=== PATIENT | female | born 1955 | race Caucasian/White ===

== ENCOUNTER 2024-07-18 11:54 | Emergency (ER) | payer MEDICARE, OTHER, SELFPAY ==
[2024-07-18 12:00] VITALS: BP 157/96
--- NOTE | 2024-07-18 13:49 | ED.GENMED ---
History of Present Illness
General
Chief Complaint: Fall
Source: patient
Time Seen by Provider: 07/18/24 12:39
History of Present Illness
History of Present Illness:
This is 69-year-old female who presents with complaints of pain around the right knee as well as up toward the right thigh. She admits that she had a fall 2 days ago but also admits that the pain in the leg has been ongoing prior to that fall. No
fevers. She states that she is able to bear weight but it is just a little bit painful to bear weight. She denies any pain in her back. No head injury.
Past History
Past History
ED Past Medical History: Hypercholesterolemia, NIDDM, Psychiatric and Other (CKD)
ED Past Surgical History: None
Social History
Tobacco: Non-smoker
Alcohol: None
Drug: None
Personal:
Living: with family
Employment: Disabled
Family History
Family History: Other (nc)
Phy Exam
Physical Exam
Physical Exam:
CONSTITUTIONAL Vital signs reviewed, Patient alert and oriented to person, place and time. Well-appearing
HEAD atraumatic, normocephalic.
EYES eyelids normal to inspection, Extraocular muscles intact, Conjunctiva normal, Sclera normal.
NECK normal range of motion, Trachea midline, no jugular venous distention.
RESP no respiratory distress
BACK No obvious deformities
UPPER EXTREMITY Gross Range of motion normal, gross motor strength normal
LOWER EXTREMITY Gross range of motion normal, Gross motor strength normal. Noted small right knee effusion. No warmth. No redness. Normal flexion and extension of the knee. Normal flexion and internal and external rotation of the hip without
difficulty. Normal distal pulses.
NEURO Speech normal, No focal motor deficits include, Navdeep coma scale 15, Memory normal, Cranial Nerves intact to screening exam.
SKIN Skin warm, dry, and normal in color.
PSYCHIATRIC Patient oriented to person place and time, Normal affect.
Course
Orders/Labs/Results
Orders:
Orders
07/18/24 12:43
Hip, Right 2-3 Views [CR Hip - RT w/wo Pel 2-3 Vw*] Urgent
Comment:
Reason For Exam: pain, recent fall
Include a pelvis x-ray?: Yes
Knee, Right 4 or More Views [CR Knee- Right 4 Or More View*] Urgent
Comment:
Reason For Exam: pain, recent fall
07/18/24 13:27
Acetaminophen [Tylenol] 1,000 mg PO NOW STA
Vital Signs
Initial and Last Documented VS:
Initial Vital Signs
Temp Pulse Resp BP Pulse Ox
97.9 F 89 18 157/96 95
07/18/24 12:00 07/18/24 12:00 07/18/24 12:00 07/18/24 12:00 07/18/24 12:00
Last Documented Vital Signs
Temp Pulse Resp BP Pulse Ox
97.9 F 89 18 157/96 95
07/18/24 12:00 07/18/24 12:00 07/18/24 12:00 07/18/24 12:00 07/18/24 12:00
MDM/Problems Addressed
MDM/Problems Addressed:
Fall, knee injury, knee effusion
Acute Exacerbation and/or Progression of Chronic Illness: HTN
*Radiology
Radiology exam reviewed: preliminary read by ED provider (No noted fractures)
*Pulse Oximetry
Patient hypoxic: no
*Critical Care Note
Total Time (30-74mins, 75-104mins- exclusive of procedures): Not Applicable
Data Reviewed
Source: patient
Further Testing Considered But Not Given:
Considered arthrocentesis but no clinical concern for septic arthritis. Okay for discharge and outpatient orthopedic follow-up
ED Attending Note
-
Portions of this chart may have been created with voice recognition software.� Occasional wrong word or��sound alike� substitutions may have occurred due to the inherent limitations of voice recognition software.
Discharge Plan
Departure
Patient Disposition: Home (Routine Discharge)
Date of Disposition: 07/18/24
Time of Disposition: 13:52
Patient with high blood pressure during this ER visit?: Yes
Discharge Problem:
Fall, Effusion of knee
Instructions: Swollen Joints
Prescriptions:
No Action
lorazepam 1 MG tablet
1 mg PO BID
lithium carbonate 300 MG tablet extended release
900 mg PO HS Qty: 90 0RF
cephalexin [Keflex] 750 MG capsule
750 mg PO BID Qty: 14 0RF
brexpiprazole [Rexulti] 2 MG tablet
2 mg PO QPM Qty: 30 0RF
Referrals:
Malvin Frost MD [Active] -
Diana Andrea MD [Family Provider] -
Activity Restrictions/Additional Instructions:
Please ice your knee and rest. Please see orthopedics next 2-week symptoms persist. Return immediately for fevers, worsening symptoms or any other concerns.
Interventions
Interventions:
*Risk Screen - Suicide Last Done: 07/18/24 11:57
*General Assessment Last Done: 07/18/24 11:59
*Neglect/Abuse Screening Last Done: 07/18/24 11:59
ED-Musculoskeletal Assessment Last Done: 07/18/24 13:37
ED- Neurological Assessment Last Done: 07/18/24 13:37
ED-Skin Assessment Last Done: 07/18/24 13:37
Discharge Date and Time
Print Language: LITHUANIAN
[2024-07-18] MEDS: TYLENOL 1000 MG PO (14:07)
[2024-07-18 14:30] VITALS: BP 145/86
[2024-07-18 22:37] VITALS: BP 142/84
[2024-07-18 22:42] VITALS: BP 142/84
== END 2024-07-18 22:47 | disposition home or self-care (01) ==
LOC: EMR 11:54
PROVIDERS: EMERGENCY PHYSICIAN Emergency Medicine; FAMILY PHYSICIAN Student in an Organized Health Care Education/Training Program
DX: M25.461 Effusion, right knee (principal); M79.651 Pain in right thigh; S89.91XA Unspecified injury of right lower leg, initial encounter; W19.XXXA Unspecified fall, initial encounter; R03.0 Elevated blood-pressure reading, without diagnosis of hypertension; E11.22 Type 2 diabetes mellitus with diabetic chronic kidney disease; N18.9 Chronic kidney disease, unspecified; E78.00 Pure hypercholesterolemia, unspecified; Z88.5 Allergy status to narcotic agent; Z91.040 Latex allergy status
CPT/HCPCS: 99284; 73502; 73564

== ENCOUNTER 2024-11-25 01:44 | Inpatient (IN) | payer OTHER, SELFPAY ==
--- NOTE | 2024-11-24 16:42 | ED.GENMED ---
ED Provider Triage
<Hermilo Keenan PA-C - Last Filed: 11/24/24 16:43>
-
Patient seen by provider in Triage?: Seen in Triage
Attestation: A medical screening examination has been initiated by a qualified medical provider. Based on the assessment performed at this time, it has been determined that an emergent medical condition may exist and the patient has been informed
that further medical evaluation and possible additional diagnostic testing may be needed.
HPI: 69-year-old female presenting to the ER via EMS from her living facility for evaluation of cough x 1 week, constipation x 3 weeks, felt a little worse today prompting her facility to want patient further evaluated. No medications reportedly
given. Patient otherwise hemodynamically stable and reportedly at her baseline otherwise. Labs, chest x-ray and abdominal series ordered.
GENERAL: Alert , in no apparent distress
EYE: No visual abnormalities.
NECK: Trachea midline
ENT: No visible abnormalities.
LUNGS: No acute respiratory distress
NEUROLOGICAL: Alert and oriented
SKIN: Skin intact. No visible changes.
MUSCULOSKELETAL: Moving extremities normally
PSYCH: Normal and appropriate interaction.
This is a medical evaluation conducted in person to initiate diagnostic evaluation and provide initial therapeutics. Please see further documentation by the treating clinician.
History of Present Illness
<Hermilo Keenan PA-C - Last Filed: 11/24/24 16:43>
General
Chief Complaint: Abdominal Pain
Time Seen by Provider: 11/24/24 21:12
<Scott Clark PA-C - Last Filed: 11/25/24 00:14>
History of Present Illness
History of Present Illness:
69-year-old female Struve diabetes, hyperlipidemia, bipolar disorder with psychotic behavior presents to the emergency department from [facility] due to cough and congestion with 'crackles' auscultated by in-house physician. She has
been a resident at [facility] since 2020 however was recently admitted to [facility] who spent a short time after hospital discharge skilled. She has been back for the past week apparently has not been receiving her psychiatric
medications particularly her Invega Sustenna she has not been authorized to leave to go to the nurse practitioner's office during her hospital stay for injections. Patient's daughter is moving back to worsening cognitive and psychotic behaviors.
She also notes that since being discharged from [facility] she appears to be swollen particularly in the face and extremities. Patient has also had diarrhea for the past several days since returning to her residence. She denies pain at this time.
Past History
<Hermilo Keenan PA-C - Last Filed: 11/24/24 16:43>
Past History
ED Past Medical History: Hypercholesterolemia, NIDDM, Psychiatric and Other (CKD)
ED Past Surgical History: None
Social History
Tobacco: Non-smoker
Alcohol: None
Drug: None
Personal:
Living: with family
Employment: Disabled
Family History
Family History: Other (nc)
Review of Systems
<Scott Clark PA-C - Last Filed: 11/25/24 00:14>
Review of Systems
Allergies reviewed?: Yes
All Other Systems: ROS reviewed and negative except as documented in HPI and ROS
Phy Exam
<Scott Clark PA-C - Last Filed: 11/25/24 00:14>
Physical Exam
Physical Exam:
GEN: Well appearing, NAD, WDWN
HEENT: Oral mucosa moist, no scleral icterus. Widespread anasarca involving the face, pupils equal round and reactive
Cardiac: Regular rate, no murmur
Lung: No respiratory distress, no tachypnea, lungs clear to auscultation
Abdomen: Protuberant with anasarca, grossly nontender
MSK: No gross deformity or injuries, mild lower extremity edema
Skin: Good color, no pallor or jaundice, no rashes
Neuro: AO x3, moves all extremities freely
Psych: Calm, cooperative
Course
<Hermilo Keenan PA-C - Last Filed: 11/24/24 16:43>
Orders/Labs/Results
Orders:
Orders
11/24/24 16:41
Abdomen Xray - 1 View [CR Abdomen - 1 View] Urgent
Comment:
Reason For Exam: constipation x 3 weeks
CR Chest - 2 Views Urgent
Comment:
Reason For Exam: cough
11/24/24 16:55
BNP [NT-proBNP] Urgent
Basic Metabolic Panel Urgent
COVID-19 Antigen Urgent
Source: Nasal Swab
Complete Blood Count/With Diff Urgent
Influenza A+B Rapid Molecular Urgent
[facility] Source: Nasal Swab
Specimen Description:
11/24/24 22:07
Straight cath- Treatment ONCE
11/24/24 22:36
CT Abd/pel Without Iv Or Oral Urgent
Comment:
Reason For Exam: renal failure
11/24/24 22:43
Depakane Urgent
Urinalysis Reflex To Culture Urgent
Date Specimen was Collected: 11/24/24
Time Specimen was Collected: 22:19
Urine Microscopic Reflex Cult Urgent
Urine Culture Urgent
[facility] Source: U
Specimen Description:
Date Specimen was Collected: 11/24/24
Time Specimen was Collected: 22:19
11/25/24 00:02
Acetaminophen [Tylenol] 1,000 mg PO NOW STA
Abnormal Lab Results
11/24/24 11/24/24
16:55 22:43
RBC 3.88 L 10^6/uL
(4.20-5.40)
Hgb 10.7 L g/dL
(12.0-16.0)
Hct 33.7 L %
(37.0-47.0)
MCHC 31.8 L g/dL
(33.0-37.0)
Abs Immat Gran (auto) 0.1 H 10^3/uL
(0-0.05)
Absolute Lymphs (auto) 0.8 L 10^3/uL
(1.2-3.4)
Immature Gran % 1.0 H %
(0-0.5)
Lymphocytes % 14.9 L %
(20.5-51.1)
Monocytes % 11.9 H %
(1.7-9.3)
Potassium 5.4 H mmol/L
(3.5-5.1)
BUN 42 H mg/dl
(7-17)
Creatinine 3.1 H mg/dL
(0.6-1.0)
Glucose 136 H mg/dl
(70-99)
Urine Bacteria (Reflex) Moderate A
(Negative)
Urine Glucose 1+ A
(Negative)
Urine Albumin (Reflex) 3+ A
(Neg - Trace)
Valproic Acid < 10.0 L ug/ml
(50.0-120.0)
11/24/24 16:55
11/24/24 16:55
Vital Signs
Initial and Last Documented VS:
Initial Vital Signs
Temp Pulse Resp BP Pulse Ox
99.0 F 69 20 139/79 97
11/24/24 16:45 11/24/24 16:45 11/24/24 16:45 11/24/24 16:45 11/24/24 16:45
Last Documented Vital Signs
Temp Pulse Resp BP Pulse Ox
98.2 F 70 24 151/75 93
11/24/24 19:27 11/24/24 19:27 11/24/24 19:27 11/24/24 21:13 11/24/24 21:15
<Scott Clark PA-C - Last Filed: 11/25/24 00:14>
Orders/Labs/Results
Orders:
Orders
11/24/24 16:41
Abdomen Xray - 1 View [CR Abdomen - 1 View] Urgent
Comment:
Reason For Exam: constipation x 3 weeks
CR Chest - 2 Views Urgent
Comment:
Reason For Exam: cough
11/24/24 16:55
BNP [NT-proBNP] Urgent
Basic Metabolic Panel Urgent
COVID-19 Antigen Urgent
Source: Nasal Swab
Complete Blood Count/With Diff Urgent
Influenza A+B Rapid Molecular Urgent
[facility] Source: Nasal Swab
Specimen Description:
11/24/24 22:07
Straight cath- Treatment ONCE
11/24/24 22:36
CT Abd/pel Without Iv Or Oral Urgent
Comment:
Reason For Exam: renal failure
11/24/24 22:43
Depakane Urgent
Urinalysis Reflex To Culture Urgent
Date Specimen was Collected: 11/24/24
Time Specimen was Collected: 22:19
Urine Microscopic Reflex Cult Urgent
Urine Culture Urgent
[place] Source: U
Specimen Description:
Date Specimen was Collected: 11/24/24
Time Specimen was Collected: 22:19
11/25/24 00:02
Acetaminophen [Tylenol] 1,000 mg PO NOW STA
Abnormal Lab Results
11/24/24 11/24/24
16:55 22:43
RBC 3.88 L 10^6/uL
(4.20-5.40)
Hgb 10.7 L g/dL
(12.0-16.0)
Hct 33.7 L %
(37.0-47.0)
MCHC 31.8 L g/dL
(33.0-37.0)
Abs Immat Gran (auto) 0.1 H 10^3/uL
(0-0.05)
Absolute Lymphs (auto) 0.8 L 10^3/uL
(1.2-3.4)
Immature Gran % 1.0 H %
(0-0.5)
Lymphocytes % 14.9 L %
(20.5-51.1)
Monocytes % 11.9 H %
(1.7-9.3)
Potassium 5.4 H mmol/L
(3.5-5.1)
BUN 42 H mg/dl
(7-17)
Creatinine 3.1 H mg/dL
(0.6-1.0)
Glucose 136 H mg/dl
(70-99)
Urine Bacteria (Reflex) Moderate A
(Negative)
Urine Glucose 1+ A
(Negative)
Urine Albumin (Reflex) 3+ A
(Neg - Trace)
Valproic Acid < 10.0 L ug/ml
(50.0-120.0)
11/24/24 16:55
11/24/24 16:55
Vital Signs
Initial and Last Documented VS:
Initial Vital Signs
Temp Pulse Resp BP Pulse Ox
99.0 F 69 20 139/79 97
11/24/24 16:45 11/24/24 16:45 11/24/24 16:45 11/24/24 16:45 11/24/24 16:45
Last Documented Vital Signs
Temp Pulse Resp BP Pulse Ox
98.2 F 70 24 151/75 93
11/24/24 19:27 11/24/24 19:27 11/24/24 19:27 11/24/24 21:13 11/24/24 21:15
<Scott Clark PA-C - Last Filed: 11/25/24 00:14>
MDM/Problems Addressed
MDM/Problems Addressed:
69-year-old female with history of diet-controlled diabetes, unclear if patient's cognitive changes are reflective of worsening psychosis from bipolar disorder versus related to renal failure. Chronicity of renal failure is not clear however prior
labs from 2021 showed significantly lower serum creatinine. Her diffuse anasarca and proteinuria is concerning for a nephrotic syndrome in the setting of acute renal failure. No evidence of infectious etiology. Unable to obtain records from [facility] at this time and I contacted the patient's living facility and they inform if they have no labs on file to send for us to review. Will admit the patient for further workup of her renal failure
<Scott Clark PA-C - Last Filed: 11/25/24 00:14>
*Critical Care Note
Total Time (30-74mins, 75-104mins- exclusive of procedures): Not Applicable
ED Attending Note
<Hermilo Keenan PA-C - Last Filed: 11/24/24 16:43>
-
Portions of this chart may have been created with voice recognition software.� Occasional wrong word or��sound alike� substitutions may have occurred due to the inherent limitations of voice recognition software.
Discharge Plan
Departure
Patient Disposition: Admit
Date of Disposition: 11/25/24
Time of Disposition: 00:13
Admit to: Med/Surg
Presentation/result/management discussed w/ accepting MD/DO: Hospitalist
Discharge Problem:
Acute renal failure, Nephrotic syndrome
Prescriptions:
No Action
lorazepam 1 MG tablet
1 mg PO BID
lithium carbonate 300 MG tablet extended release
900 mg PO HS Qty: 90 0RF
cephalexin [Keflex] 750 MG capsule
750 mg PO BID Qty: 14 0RF
brexpiprazole [Rexulti] 2 MG tablet
2 mg PO QPM Qty: 30 0RF
Referrals:
Sulema Lopez DO [Family Provider] -
Interventions
Interventions:
*Risk Screen - Suicide Last Done: 11/24/24 16:45
*General Assessment Last Done: 11/24/24 21:14
ED- Fall Risk Assessment Last Done: 11/24/24 21:14
*ED COVID-19 Vaccine History Last Done: 11/24/24 21:14
IS-Yvcrvp-Ofthyxhdhn Assessment Last Done: 11/24/24 23:00
Discharge Date and Time
Print Language: BOTSWANAN
[2024-11-24 16:45] VITALS: BP 139/79
[2024-11-24 17:08] LABS: % Basophils 0.4 % (0-2); % Lymphocytes 14.9 % (20.5-51.1); % Monocytes 11.9 % (1.7-9.3); % Neutrophils 70.8 % (42.2-75.2); Absolute Eosinophils 0.1 10^3/uL (0-0.7); Absolute Immature Granulocytes 0.1 10^3/uL (0-0.05); Absolute Lymphocytes 0.8 10^3/uL (1.2-3.4); Absolute Monocytes 0.6 10^3/uL (0.1-0.6); Absolute Neutrophils 3.6 10^3/uL (1.4-6.5); Hematocrit 33.7 % (37.0-47.0); Hemoglobin 10.7 g/dL (12.0-16.0); Mean Corp Hgb Conc. 31.8 g/dL (33.0-37.0); Mean Corpuscular Hgb 27.6 pg (27.0-31.0); Mean Corpuscular Volume 86.9 fL (81.0-99.0); Mean Platelet Volume 9.3 fL (7.4-10.4); Nucleated Red Blood Cells % 0 %; Platelet Count 244 10^3/uL (130-400); Red Blood Cell Count 3.88 10^6/uL (4.20-5.40); Red Cell Dist. Width 14.4 % (11.5-14.5)
[2024-11-24 17:22] LABS: Blood Urea Nitrogen 42 mg/dl (7-17); Calcium 8.8 mg/dl (8.4-10.2); Carbon Dioxide 26 mmol/L (22-30); Chloride 105 mmol/L (98-107); Glucose 136 mg/dl (70-99); Potassium 5.4 mmol/L (3.5-5.1); Sodium 137 mmol/L (135-145); eGFR 15.69
[2024-11-24 17:29] LABS: NT-proBNP 822 pg/ml
[2024-11-24 17:59] LABS: COVID-19 Antigen Negative (Negative)
[2024-11-24 19:27] VITALS: BP 134/76
[2024-11-24 21:13] VITALS: BP 151/75
--- NOTE | 2024-11-24 21:41 | EDRN ---
Patients brief changed, small amount of stool in brief, cleaned up and new brief placed on patient and pulled up in bed.
[2024-11-24 22:36] VITALS: BP 144/82
[2024-11-24 22:55] LABS: Urine Albumin 3+ (Neg - Trace); Urine Bilirubin Negative (Negative); Urine Character Clear (Clear); Urine Color Yellow; Urine Glucose 1+ (Negative); Urine Ketone Negative (Negative); Urine Leukocyte Negative (Negative); Urine Nitrite Negative (Negative); Urine Occult Blood Negative (Negative); Urine Specific Gravity 1.015 (<1.030); Urine Urobilinogen Negative (Neg - 1+)
[2024-11-24 23:00] VITALS: BP 144/92
[2024-11-24 23:01] LABS: Urine Mucus Few; Urine Squamous Cell 0-2 /LPF (Few)
[2024-11-24 23:02] LABS: Urine Bacteria Moderate (Negative); Urine Red Blood Cell 0-2 /HPF (0-2)
[2024-11-24 23:14] LABS: Depakane < 10.0 ug/ml (50.0-120.0)
[2024-11-25] VITALS (12 sets, daily range): BP systolic 119–177; BP diastolic 62–99; BMI 38.0
--- NOTE | 2024-11-25 | EDRN ---
Patient yelling for pain meds, tylenol ordered, went to give and patient is asleep
[2024-11-25] MEDS: TYLENOL 1000 MG PO (00:42)
[2024-11-25] MEDS: NSS 500 IV (00:44)
--- NOTE | 2024-11-25 01:00 | EDRN ---
Patient was medicated and given applesauce and a gingerale and pulled up in bed.
--- NOTE | 2024-11-25 01:30 | HPS.HSE ---
Family Physician
-
Family Physician: Sulema Lopez
Chief Complaint
-
Altered Mental Status
History of Present Illness
Patient is a 69y F with PMH significant for psychiatric disorder, DM-II, obesity and polyneuropathy who presents to ED from local [place] for evaluation of altered mental status. History is extremely difficult to ascertain from multiple sources. [facility]
record indicates that patient has had constipation x 3 weeks. ED notes report diarrhea x several days. She had been hospitalized most recent at [facility] - though it is not clear why. She has been having decline in her cognitive
function for some time now.
In the ED, patient complains of being uncomfortable and repeatedly requests assistance with repositioning. She otherwise does not have complaints. She denies any cough, dyspnea, fevers / chills, etc.
She reports chronic issues with constipation. She states that her distended abdomen is chronic / unchanged. She denies any abdominal pain.
Labs were done in the ED and show renal insufficiency. Her last labs on record here were in 2021.
Medical History
Past Medical History
Past Medical History: Reports Other
Additional Past Medical History:
Autism / Cognitive Impairment
Psychosis
DM-II
Hypertension
Polyneuropathy
Obesity
Past Surgical History: Reports Other
Additional Past Surgical History:
Unknown
Social History
Tobacco: Non-smoker
Alcohol: None
Drug: None
Living: [facility]
Family History
Family History: Not pertinent
Allergies / Home Medications
Allergies reflects when Allergies were last updated in [employer].
Home Medications with original date entered in [employer]
Allergy/Medication List:
Allergies
Allergy/AdvReac Type Severity Reaction Status Date / Time
codeine Allergy Unknown Verified 11/24/24 16:44
latex Allergy Unknown Verified 11/24/24 16:44
Home Medications
lorazepam 1 mg tablet 1 mg PO BID 02/18/20
Lactobacillus acidophilus-Bifidobac.animalis 32 billion cell capsule (Probizen) 1 cap PO DAILY 11/25/24
acetaminophen 325 mg capsule 650 mg PO Q4H PRN pain 11/25/24
amlodipine 10 mg tablet (Norvasc) 10 mg PO DAILY 11/25/24
aspirin 81 mg chewable tablet 81 mg PO DAILY 11/25/24
atorvastatin 20 mg tablet 20 mg PO HS 11/25/24
calcium carbonate 500 mg oral wafer 500 mg PO DAILY 11/25/24
divalproex 125 mg capsule,delayed release sprinkle 125 mg PO BID 11/25/24
docusate sodium 100 mg capsule (Colace) 100 mg PO DAILY 11/25/24
ferrous gluconate 324 mg (38 mg iron) tablet 324 mg PO DAILY 11/25/24
guaifenesin 100 mg/5 mL oral liquid 200 mg PO Q6 PRN congestion 11/25/24
insulin glargine 100 unit/mL (3 mL) subcutaneous pen (Lantus Solostar U-100 Insulin) 25 unit SC QPM 11/25/24
insulin lispro 100 unit/mL subcutaneous pen (Admelog SoloStar U-100 Insulin lispro) 6 unit SC AC 11/25/24
lidocaine 4 % topical patch (Aspercreme (lidocaine)) 1 patch topical DAILY PRN pain 11/25/24
lidocaine 4 % topical patch (Lidocaine Pain Relief) 1 patch topical DAILY PRN pain 11/25/24
lisinopril 5 mg tablet 5 mg PO DAILY 11/25/24
melatonin 10 mg tablet 10 mg PO HS PRN insomnia 11/25/24
polyethylene glycol 3350 17 gram/dose oral powder 4 g PO DAILY 11/25/24
quetiapine 50 mg tablet 50 mg PO HS 11/25/24
tiagabine 4 mg tablet 4 mg PO HS 11/25/24
trazodone 50 mg tablet 50 mg PO HS 11/25/24
Review of Systems
-
History Source: Patient
A 12 point ROS was completed and negative except as noted: Yes
Constitutional: Denies Fever or Chills
Respiratory: Denies Cough or Trouble Breathing
Cardiac: Denies Chest Pain or Palpitations
Abdomen/GI: Reports Constipated; Denies Abdominal Pain, Nausea, Vomiting or Diarrhea
: Denies Dysuria or Frequency
Neurological: Denies Dizzy or Headache
Physical Exam
Vital Signs
Vital Signs
Temp Pulse Resp BP Pulse Ox
98.2 F 60 19 144/92 92
11/24/24 19:27 11/25/24 00:15 11/25/24 00:15 11/24/24 23:00 11/25/24 00:00
Physical Exam
General: Other (69y F in no acute distress.)
HEENT: Moist mucous membranes, PERRLA and Other (Thic neck, rounded facies. Hirsute.)
Respiratory: Other (Decreased at bases -otherwise clear.)
Cardiac: S1/S2 and Regular Rhythm; No Murmur
GI: Other (Obese, not tender. Pos BS. )
Musculoskeletal: No Clubbing, No Cyanosis and Other (1-2+ pitting edema at ankles.)
Neuro: Awake and Alert
Laboratory Results
-
11/24/24 16:55
11/24/24 16:55
Impression/Plan
-
A/P: Patient is a 69y F with PMH significant for autism, psychosis and DM-II who presents to ED for evaluation of increased confusion. ? diarrhea, ? constipation.
Renal Insufficiency
Nephrotic Syndrome
Edema
- Admit for further evaluation and treatment.
- No recent labs available for comparison - send to [facility] for recent records.
- Seems likely that this is chronic.
- CT done in the ED today shows severe atrophy of both kidneys c/w medicorenal disease.
- UA with 3+ albumin.
- Nephrology evaluation for additional recommendations.
- Follow labs / lytes for changs.
- No acute IVFs, diuresis, etc for now.
Altered Mental Status
- Not clear what acute alteration there has been.
- Patient with chronic cognitive impairment and psychosis with recent history noting progression.
- No evidence of acute infectious process, etc to explain any new / acute decompensation.
- Continue current psychotropic med regimen.
- Monitor for any changes while here.
- Check TFTs, cortisol, etc.
Anemia - Likely due to CKD
- Hgb slightly decreased from prior baseline (again - compared to 2021 labs).
- Obtain more recent comparisons.
- Follow H&H for changes.
- Check iron studies, etc.
DM-II
- Stable. Continue basal : bolus insulin regimen.
- Follow glucose and cover with SSI as needed.
- Check A1C.
Diarrhea / Constipation
- Unclear which has been occurring recently.
- Follow stools during hospital stay.
- CT done in the ED this evening with no obstruction, marked constipation, etc.
DVT Prophylaxis: Subcut heparin
Code Status: Full
--- NOTE | 2024-11-25 03:55 | EDRN ---
Patient asking when breakfast is, informed her its only 0400 and generally around 0700, fixed patients blankets and informed her they are working on getting her a room upstairs.
--- NOTE | 2024-11-25 04:07 | EDRN ---
Patient asking again about breakfast, informed her again when she can order, complaining about her legs, placed a pillow under them to elevate for more comfort
[2024-11-25] MEDS: TYLENOL 650 MG PO ×2 (05:33→21:36)
[2024-11-25 05:41] LABS: Hematocrit 30.3 % (37.0-47.0); Hemoglobin 9.9 g/dL (12.0-16.0); Mean Corp Hgb Conc. 32.7 g/dL (33.0-37.0); Mean Corpuscular Hgb 28.7 pg (27.0-31.0); Mean Corpuscular Volume 87.8 fL (81.0-99.0); Mean Platelet Volume 9.5 fL (7.4-10.4); Platelet Count 211 10^3/uL (130-400); Red Blood Cell Count 3.45 10^6/uL (4.20-5.40); Red Cell Dist. Width 14.4 % (11.5-14.5); White Blood Cell Count 3.7 10^3/uL (4.8-10.8)
[2024-11-25 06:12] LABS: Blood Urea Nitrogen 40 mg/dl (7-17); Calcium 8.5 mg/dl (8.4-10.2); Carbon Dioxide 25 mmol/L (22-30); Chloride 107 mmol/L (98-107); Estimated Creatinine Clearance 17 ml/min; Glucose 142 mg/dl (70-99); Iron 44 ug/dl (37-170); Magnesium 1.9 mg/dl (1.6-2.3); Phosphorus 4.7 mg/dl (2.5-4.5); Potassium 5.1 mmol/L (3.5-5.1); Sodium 137 mmol/L (135-145); eGFR 16.32
[2024-11-25 06:22] LABS: Percent Saturation 17 % (20-50); Total Iron Binding Capacity 249 ug/dl (265-497)
[2024-11-25 06:41] LABS: TSH Reflex To Free T4 3.51 uIU/ml (0.47-4.68)
[2024-11-25 06:42] LABS: Cortisol, Random 8.8 ug/dl
[2024-11-25 06:46] LABS: Ferritin 20.8 ng/ml (11.1-264.0)
[2024-11-25 07:00] LABS: Vitamin B12 315 pg/ml (239-931)
[2024-11-25 07:32] LABS: Glucose - Point of Care 176 mg/dl (70-99)
[2024-11-25] MEDS: LOW STRENGTH ASPIRIN 81 MG PO (08:32)
[2024-11-25] MEDS: VITAMIN B-12 1000 MCG PO (08:32)
[2024-11-25] MEDS: ATIVAN 1 MG PO ×2 (08:32→20:07)
[2024-11-25] MEDS: HEPARIN 5000 UNITS SC ×2 (08:32→15:12)
[2024-11-25] MEDS: DEPAKOTE SPRINKLE 125 MG PO ×2 (08:32→20:07)
[2024-11-25] MEDS: NOVOLOG FLEXPEN-LOW RESISTANCE 1 UNITS SC ×3 (08:33→17:30)
--- NOTE | 2024-11-25 10:15 | PTCARENOTE ---
court recording monitor alarmed, a flutter observed on monitor, see strip in chart. Pt assessed, on bedpan. MD at bedside, new orders provided. Vital signs and ECG obtained.
[2024-11-25] MEDS: MAGNESIUM SULFATE 100 IV (10:33)
[2024-11-25 10:46] LABS: Troponin I 0.145 ng/ml
--- NOTE | 2024-11-25 10:48 | PTCARENOTE ---
Lab informed this RN of critical troponin value, result= 0.145. Pt asymptomatic. made aware. No new order provided.
[2024-11-25 11:32] LABS: Glycohemoglobin (HgbA1c) 9.3 % (4.0-5.6)
[2024-11-25 11:59] LABS: Glucose - Point of Care 173 mg/dl (70-99)
--- NOTE | 2024-11-25 12:00 | PTCARENOTE ---
Fitting Room Attendant informed this RN that monitor did not display a flutter, assessed telemetry strip and informed this RN of artifact.
--- NOTE | 2024-11-25 12:04 | W.PN.UPDATE ---
Addendum entered and electronically signed by Shon Jensen MD 11/25/24 12:44:
Updated patient daughter over the phone in detail. Patient was recently admitted to [facility] for nausea vomiting and diarrhea. Patient was also found to have elevated blood glucose and was started on insulin regimen. Per daughter
patient is due to get injection of Invega Sustenna at [facility]. Per daughter patient has a subtle sign before going into full-blown psychosis as history of schizoaffective disorder. If with worsening mental status will ask psych
for input. Daughter denied any prior history of cardiac problems.
Original Note:
Update Note
Progress Note Update
Seen and examined independent of overnight physician
Patient had a bowel movement. Patient states of palpitation. Patient was found to have NSVT. Denies chest pain
States of leg pain and headache.
States of left upper extremity tremors
General: Morbidly obese
HEENT: Moist mucous membranes, PERRLA and Other (Thic neck, rounded facies. Hirsute.)
Respiratory: Other (Decreased at bases -otherwise clear.)
Cardiac: S1/S2 and Regular Rhythm; No Murmur
GI: Other (Obese, not tender. Pos BS. )
Musculoskeletal: No Clubbing, No Cyanosis and Other (1-2+ pitting edema at ankles.)
Neuro: Awake and Alert, tremors LUE
A/P: Patient is a 69y F with PMH significant for autism, psychosis and DM-II who presents to ED for evaluation of increased confusion. ? diarrhea, ? constipation.
NSVT
Elevated troponin
-Potassium within normal limits. Mag 1.9 will give 1 g of magnesium
-Continue to trend Trope. EKG with normal sinus rhythm post event. HR of 62. Cont to monitor on tele.
-Patient heart rate currently is 62's.
-Echocardiogram pending
-Last cardiac cath was 2008 with normal coronaries
-consider starting BB if HR/BP can tolerate it.
-Cardiology evaluation
Elevated creatinine likely ALBERTINA on CKD versus CKD progression
Nephrotic Syndrome
Edema
Hyperkalemia-improved
- No recent labs available for comparison - send to [facility] for recent records.
- Seems likely that this is chronic.
- CT done in the ED today shows severe atrophy of both kidneys c/w medicorenal disease.
- UA with 3+ albumin.
- Nephrology evaluation for additional recommendations.
- Follow labs / lytes for changs.
- No acute IVFs, diuresis, etc for now.
Altered Mental Status
Suspected aspiration
- Not clear what acute alteration there has been.
- Patient with chronic cognitive impairment and psychosis with recent history noting progression.
- No evidence of acute infectious process, etc to explain any new / acute decompensation.
- Continue current psychotropic med regimen.
- Monitor for any changes while here.
- TSH normal
- Diet downgraded. Will start IV fluids speech pending
Anemia - Likely due to CKD
- Hgb slightly decreased from prior baseline (again - compared to 2021 labs).
- Obtain more recent comparisons.
- Follow H&H for changes. start po b12.
DM-II
- Stable. Continue basal : bolus insulin regimen.
- Follow glucose and cover with SSI as needed.
- Check A1C and 9.3
Diarrhea / Constipation
- Unclear which has been occurring recently.
- Follow stools during hospital stay.
- CT done in the ED this evening with no obstruction, marked constipation, etc.
DVT Prophylaxis: Subcut heparin
Code Status: Full
called karthikeyan daughter to update x 2. No response. left VM.
--- NOTE | 2024-11-25 12:10 | PTCARENOTE ---
Lunch at bedside, pt coughing with intake. Lunch tray removed. made aware.
[2024-11-25] MEDS: NSS 1000 IV (12:15)
--- NOTE | 2024-11-25 13:16 | CON.CAR ---
Consultation
Consultation Request
Date/Time Consultation Requested: 11/25/2024
Date/Time Consultation Performed: 11/25/2024
Requesting Provider: Dr. Jensen
Performing Provider: Dr. Li
Reason for Consultation: Elevated troponin, Abnormal telemetry
Medical History
-
Chief Complaint: Change in mental status
History of Present Illness:
69-year-old female with severe schizoaffective disorder, hypertension, hyperlipidemia, diabetes, CKD, and obesity admitted with change in mental status. The patient is a poor historian. Cardiology was consulted for abnormal telemetry (concern for
NSVT) and mildly elevated cardiac troponin.
Past Medical History
Past Medical History: HTN, Hypercholesterolemia, IDDM, Renal Failure and Psychiatric (Schizoaffective disorder)
Past Surgical History: Other (Unknown/unable to obtain secondary to patient being a poor historian)
Social History
Tobacco: Non-Smoker
Alcohol: None
Living: Custodial
Family History
Family History: Unable to Obtain
Allergies / Home Medications
Allergy/AdvReac Type Severity Reaction Status Date / Time
codeine Allergy Unknown Verified 11/24/24 16:44
latex Allergy Unknown Verified 11/24/24 16:44
�Medication �Instructions �Recorded �Confirmed �Type
lorazepam 1 mg tablet 1 mg PO BID anxiety 02/18/20 11/25/24 History
Lactobacillus 1 cap PO DAILY probiotic 11/25/24 11/25/24 History
acidophilus-Bifidobac.animalis 32
billion cell capsule (Probizen)
acetaminophen 325 mg capsule 650 mg PO Q4H PRN pain 11/25/24 11/25/24 History
amlodipine 10 mg tablet (Norvasc) 10 mg PO DAILY Blood Pressure 11/25/24 11/25/24 History
aspirin 81 mg chewable tablet 81 mg PO DAILY Blood Clot 11/25/24 11/25/24 History
Prevention/Tx
atorvastatin 20 mg tablet 20 mg PO HS High Cholesterol 11/25/24 11/25/24 History
calcium carbonate 500 mg oral wafer 500 mg PO DAILY Supplement 11/25/24 11/25/24 History
divalproex 125 mg capsule,delayed 125 mg PO BID Seizures 11/25/24 11/25/24 History
release sprinkle
docusate sodium 100 mg capsule 100 mg PO DAILY Constipation 11/25/24 11/25/24 History
(Colace)
ferrous gluconate 324 mg (38 mg 324 mg PO DAILY Supplement 11/25/24 11/25/24 History
iron) tablet
guaifenesin 100 mg/5 mL oral liquid 200 mg PO Q6 PRN congestion 11/25/24 11/25/24 History
insulin glargine 100 unit/mL (3 25 unit SC QPM Diabetes 11/25/24 11/25/24 History
mL) subcutaneous pen (Lantus
Solostar U-100 Insulin)
insulin lispro 100 unit/mL 6 unit SC AC Diabetes 11/25/24 11/25/24 History
subcutaneous pen (Admelog SoloStar
U-100 Insulin lispro)
lidocaine 4 % topical patch 1 patch topical DAILY PRN pain 11/25/24 11/25/24 History
(Aspercreme (lidocaine))
lidocaine 4 % topical patch 1 patch topical DAILY PRN pain 11/25/24 11/25/24 History
(Lidocaine Pain Relief)
lisinopril 5 mg tablet 5 mg PO DAILY Blood Pressure 11/25/24 11/25/24 History
melatonin 10 mg tablet 10 mg PO HS PRN insomnia 11/25/24 11/25/24 History
polyethylene glycol 3350 17 4 g PO DAILY Constipation 11/25/24 11/25/24 History
gram/dose oral powder
quetiapine 50 mg tablet 50 mg PO HS depression 11/25/24 11/25/24 History
tiagabine 4 mg tablet 4 mg PO HS Seizures 11/25/24 11/25/24 History
trazodone 50 mg tablet 50 mg PO HS Sleep 11/25/24 11/25/24 History
Review of Systems
-
Unable to obtain full review of systems at this time due to: Other (Poor historian)
Physical Exam
Vital Signs
Temp Pulse Resp BP Pulse Ox
98.6 F 62 16 170/86 94
11/25/24 11:13 11/25/24 11:13 11/25/24 11:13 11/25/24 11:13 11/25/24 11:13
Lab Results
11/25/24 05:25
11/25/24 05:25
Troponin I 0.145 ng/ml H* 11/25/24 10:05
Dyx-X-Hceilmeopim Pept 822 pg/ml 11/24/24 16:55
Physical Exam
General: No Apparent Distress
HEENT: Normocephalic
Respiratory: Clear
Cardiac: S1/S2, Murmur (2/6 systolic) and Peripheral Edema (Trace-1+)
Breast: Deferred by me
GI: Soft
Rectal: Deferred by Provider
Musculoskeletal: Edema (Trace-1+)
Skin: Warm and Dry
Neuro: Awake
Psych: Calm
Impression / Plan
-
69-year-old female with severe schizoaffective disorder, hypertension, hyperlipidemia, diabetes, CKD, and obesity admitted with change in mental status. The patient is a poor historian. Cardiology was consulted for abnormal telemetry (concern for
NSVT) and mildly elevated cardiac troponin.
Telemetry review:
-The patient does not have NSVT--it is artifact (the tracings were reviewed with the patient's nurse).
Abnormal troponin:
-Most likely acute nonischemic myocardial injury in the setting of CKD.
-Will obtain an echocardiogram to assess patient's baseline cardiac function; however, she will be managed conservatively from a cardiac standpoint if there are any abnormalities.
-Patient is a poor candidate for any aggressive cardiac measures.
CKD:
-The patient's current creatinine appears to be higher than baseline.
-Management as per primary team; likely conservative management overall.
Hypertension:
-Blood pressure slightly labile.
-Continue management/medications as per primary team.
Hyperlipidemia:
-Continue atorvastatin.
Diabetes:
-Hemoglobin A1c is 9.3%.
-Management as per primary team.
Anemia:
-Hemoglobin is lower than typical.
-Management as per primary team.
Cardiology will remain available on an as-needed basis.
Data Reviewed
-
EKG: Tracing Personally Visualized and interpreted (Sinus rhythm at 65 bpm with left axis deviation and poor R wave progression.) and Report Reviewed by me
Labs: Labs Reviewed by me
--- NOTE | 2024-11-25 13:31 | PTCARENOTE ---
Blood pressure elevated, made aware, new order provided, see MAR.
[2024-11-25 13:39] LABS: Urine Sodium 131 mmol/L (30-90)
--- NOTE | 2024-11-25 13:56 | PTOTSP ---
ST Acute Care Evaluation
Pt currently presents with clinical signs of mild oral dysphagia characterized by prolonged mastication and bolus formation as well as reduced bolus formation requiring liquid aids to help with bolus formation and residue clearance as well as
suspected moderate pharyngoesophageal dysphagia characterized by immediate and delayed coughing following ingestion of both solids and liquids (solids>liquids) that are suspicious for airway invasion, as well as eructation s/p ingestion of liquids,
suspicious for esophageal dysfunction.
Recommendations:
- Initiate PO diet of minced and moist solids with thin liquids and meds whole in puree.
- Aspiration precautions: FULL supervision for PO intake; fully upright for ALL PO intake and for 60 minutes after PO intake; small bites; small sips; EAT/DRINK SLOWLY; take a break to breathe if a coughing event transpires.
- Video fluoroscopic swallow study for more information.
- WOOD DOWEL MACHINE OPERATOR to f/u with additional recommendations following the completion of the instrumental swallow study.
--- NOTE | 2024-11-25 14:15 | PTOTSP ---
Speech Language Pathology
VIDEOFLUOROSCOPIC SWALLOWING EXAMINATION (VSE) completed. Oropharyngeal swallow WFL. No significant pharyngeal residue. No penetration/aspiration noted with any consistencies trialed despite significant strong coughing episode noted during study.
Esophageal sweep demonstrated clear esophagus.
Recommend:
(1) Regular solids/thin liquids
(2) General aspiration precautions
(3) Meds as tolerated
(4) WET AND DRY SUGAR BIN OPERATOR to sign off. Please reconsult as indicated
[2024-11-25] MEDS: NORVASC 10 MG PO (15:12)
[2024-11-25 16:23] LABS: Glucose - Point of Care 157 mg/dl (70-99)
--- NOTE | 2024-11-25 17:02 | CM ---
Alert awake patient who lives at [facility] living at [facility].Spoke with POA brother Christo [phone] who thinks pt will need to move for more care.Will need PT Ot and possible SNF. PAC Data given to brother.She uses Rollator and a
wheelchair in past.
Never had [facility]
Pharmacy [facility]
PCP Dr Lopez
PLAN Needs PT [place]
[2024-11-25 17:11] LABS: Troponin I 0.145 ng/ml
--- NOTE | 2024-11-25 17:45 | W.CON.NEPH ---
Consultation
-
Date/Time Consultation Requested: November 25, 2024 at 5 AM
Date/Time Consultation Performed: November 25, 2024 at 5 PM
Requesting Provider: Dr. Pastor
Performing Provider: Dr. Maverick Barclay
Reason for Consultation: acute kidney injury
Medical History
-
Chief Complaint: acute kidney injury
History of Present Illness:
69y F with PMH significant for psychiatric disorder, DM-II, obesity and polyneuropathy who presents to ED from local [place] for evaluation of altered mental status. history obtained via a chart review as patient is not a good historian she
presents from care home with the altered mental status She had been hospitalized most recent at [facility] - though it is not clear why. records have been requested.
Renal consul for acute kidney injury uncertainty baseline although creatinine was 1.4 and 2021.
She is 3+ proteinuria and and Anasarca on exam
Past Medical History
psychiatric disorder, diabetes, obesity, proteinuria
Social History
Tobacco: Non-Smoker
Alcohol: None
Family History
Family History: Not Pertinent
Allergies / Home Medications
Allergy/AdvReac Type Severity Reaction Status Date / Time
codeine Allergy Unknown Verified 11/24/24 16:44
latex Allergy Unknown Verified 11/24/24 16:44
�Medication �Instructions �Recorded �Confirmed �Type
lorazepam 1 mg tablet 1 mg PO BID anxiety 02/18/20 11/25/24 History
Lactobacillus 1 cap PO DAILY probiotic 11/25/24 11/25/24 History
acidophilus-Bifidobac.animalis 32
billion cell capsule (Probizen)
acetaminophen 325 mg capsule 650 mg PO Q4H PRN pain 11/25/24 11/25/24 History
amlodipine 10 mg tablet (Norvasc) 10 mg PO DAILY Blood Pressure 11/25/24 11/25/24 History
aspirin 81 mg chewable tablet 81 mg PO DAILY Blood Clot 11/25/24 11/25/24 History
Prevention/Tx
atorvastatin 20 mg tablet 20 mg PO HS High Cholesterol 11/25/24 11/25/24 History
calcium carbonate 500 mg oral wafer 500 mg PO DAILY Supplement 11/25/24 11/25/24 History
divalproex 125 mg capsule,delayed 125 mg PO BID Seizures 11/25/24 11/25/24 History
release sprinkle
docusate sodium 100 mg capsule 100 mg PO DAILY Constipation 11/25/24 11/25/24 History
(Colace)
ferrous gluconate 324 mg (38 mg 324 mg PO DAILY Supplement 11/25/24 11/25/24 History
iron) tablet
guaifenesin 100 mg/5 mL oral liquid 200 mg PO Q6 PRN congestion 11/25/24 11/25/24 History
insulin glargine 100 unit/mL (3 25 unit SC QPM Diabetes 11/25/24 11/25/24 History
mL) subcutaneous pen (Lantus
Solostar U-100 Insulin)
insulin lispro 100 unit/mL 6 unit SC AC Diabetes 11/25/24 11/25/24 History
subcutaneous pen (Admelog SoloStar
U-100 Insulin lispro)
lidocaine 4 % topical patch 1 patch topical DAILY PRN pain 11/25/24 11/25/24 History
(Aspercreme (lidocaine))
lidocaine 4 % topical patch 1 patch topical DAILY PRN pain 11/25/24 11/25/24 History
(Lidocaine Pain Relief)
lisinopril 5 mg tablet 5 mg PO DAILY Blood Pressure 11/25/24 11/25/24 History
melatonin 10 mg tablet 10 mg PO HS PRN insomnia 11/25/24 11/25/24 History
polyethylene glycol 3350 17 4 g PO DAILY Constipation 11/25/24 11/25/24 History
gram/dose oral powder
quetiapine 50 mg tablet 50 mg PO HS depression 11/25/24 11/25/24 History
tiagabine 4 mg tablet 4 mg PO HS Seizures 11/25/24 11/25/24 History
trazodone 50 mg tablet 50 mg PO HS Sleep 11/25/24 11/25/24 History
Review of Systems
-
no chest pain or shortness of breath positive cough
All other systems: Negative unless noted
Physical Exam
Vital Signs
Vital Signs
Temp Pulse Resp BP Pulse Ox
97.9 F 75 16 159/88 94
11/25/24 15:34 11/25/24 16:25 11/25/24 15:34 11/25/24 16:25 11/25/24 15:34
Lab Results
WBC 3.7 10^3/uL (4.8-10.8) L 11/25/24 05:25
RBC 3.45 10^6/uL (4.20-5.40) L 11/25/24 05:25
Hgb 9.9 g/dL (12.0-16.0) L 11/25/24 05:25
Hct 30.3 % (37.0-47.0) L 11/25/24 05:25
Plt Count 211 10^3/uL (130-400) 11/25/24 05:25
Sodium 137 mmol/L (135-145) 11/25/24 05:25
Potassium 5.1 mmol/L (3.5-5.1) 11/25/24 05:25
Chloride 107 mmol/L (98-107) 11/25/24 05:25
Carbon Dioxide 25 mmol/L (22-30) 11/25/24 05:25
BUN 40 mg/dl (7-17) H 11/25/24 05:25
Creatinine 3.0 mg/dL (0.6-1.0) H 11/25/24 05:25
eGFR 16.32 11/25/24 05:25
Glucose 142 mg/dl (70-99) H 11/25/24 05:25
Calcium 8.5 mg/dl (8.4-10.2) 11/25/24 05:25
Phosphorus 4.7 mg/dl (2.5-4.5) H 11/25/24 05:25
Yak-E-Jrmjeztmrgy Pept 822 pg/ml 11/24/24 16:55
Physical Exam
General no acute distress
HEENT no cephalic atraumatic extraocular muscle intact no scleral icterus no JVD neck supple
lungs course breath sounds
heart regular S1-S2 positive
abdomen soft nontender positive bowel sounds
extremities anasarca
Neurologically nonfocal alert and oriented x 3
Skin no lesions no abrasions no petechiae
Psych normal affect no bizarre behavior
Data Reviewed
-
Radiology: Image Personally Visualized and interpreted ( no pulmonary edema)
Ultrasound: Image Personally Visualized and interpreted ( large kidneys with cortical thinning no obstruction)
Assessment/Plan
-
69y F with PMH significant for psychiatric disorder, DM-II, obesity and polyneuropathy who presents to ED from local [place] for evaluation of altered mental status.
renal consul for acute kidney injury.
Impression.
Acute or chronic kidney disease with a creatinine of 1.42in 2021 no more recent labs and presents with a creatinine greater of 3.
Anemia without thrombocytopenia.
Altered mental status without signs of infection.
proteinuria in the setting of the diabetes with an Asarco.
Hypertension.
Plan.
creatinine of 3 on admission in with the only known creatinine per record of 1.4 in 2021
Decreased effective arterial blood volume in the setting of 3+ proteinuria.
Check serum albumin.
Will give albumin.
Echocardiogram pending.
Discontinue IV fluids.
check protein to creatinine ratio
Question of patient is on lithium/I will add a lithium level.
Check CMP in the morning
No acute need for dialysis
[2024-11-25] MEDS: FLEXBUMIN 100 IV (18:16)
[2024-11-25 18:41] LABS: Lithium < 0.2 mmol/L (0.6-1.2)
[2024-11-25 19:47] LABS: Urine Protein 186 mg/dl
[2024-11-25] MEDS: DESENEX/MITRAZOL/ZEASORB 1 APPLIC TOPICAL (20:07)
[2024-11-25 21:34] LABS: Glucose - Point of Care 132 mg/dl (70-99)
[2024-11-25] MEDS: LIPITOR 20 MG PO (21:35)
[2024-11-25] MEDS: DESYREL 50 MG PO (21:35)
[2024-11-25] MEDS: LANTUS 0.1 UNITS SC (21:35)
[2024-11-25] MEDS: SEROQUEL 50 MG PO (21:36)
[2024-11-26] MEDS: HEPARIN 5000 UNITS SC ×4 (01:52→23:54)
[2024-11-26] MEDS: FLEXBUMIN 100 IV ×2 (01:53→09:54)
[2024-11-26 02:50] LABS: Troponin I 0.136 ng/ml
[2024-11-26 03:18] VITALS: BP 150/68; BMI 38.0
[2024-11-26 05:53] LABS: % Basophils 0.3 % (0-2); % Eosinophils 3.3 % (0-6); % Lymphocytes 17.5 % (20.5-51.1); % Neutrophils 68.9 % (42.2-75.2); Absolute Eosinophils 0.1 10^3/uL (0-0.7); Absolute Lymphocytes 0.7 10^3/uL (1.2-3.4); Absolute Monocytes 0.4 10^3/uL (0.1-0.6); Absolute Neutrophils 2.8 10^3/uL (1.4-6.5); Hematocrit 27.3 % (37.0-47.0); Mean Corpuscular Hgb 28.7 pg (27.0-31.0); Mean Corpuscular Volume 86.9 fL (81.0-99.0); Mean Platelet Volume 9.6 fL (7.4-10.4); Nucleated Red Blood Cells % 0 %; Platelet Count 184 10^3/uL (130-400); Red Blood Cell Count 3.14 10^6/uL (4.20-5.40)
[2024-11-26 06:20] LABS: ALT (SGPT) 17 U/L (0-35); AST (SGOT) 18 U/L (14-36); Albumin 3.3 g/dl (3.5-5.0); Alkaline Phosphatase 77 U/L (38-126); Blood Urea Nitrogen 40 mg/dl (7-17); Calcium 8.6 mg/dl (8.4-10.2); Carbon Dioxide 26 mmol/L (22-30); Chloride 107 mmol/L (98-107); Estimated Creatinine Clearance 17 ml/min; Glucose 125 mg/dl (70-99); Potassium 4.7 mmol/L (3.5-5.1); Sodium 141 mmol/L (135-145); Total Bilirubin 0.1 mg/dl (0.2-1.3); Total Protein 5.7 g/dl (6.3-8.2); eGFR 16.32
[2024-11-26 07:05] VITALS: BP 187/79
[2024-11-26 07:44] LABS: Glucose - Point of Care 135 mg/dl (70-99)
[2024-11-26] MEDS: NOVOLOG FLEXPEN-LOW RESISTANCE SC ×3 (08:22→17:22)
[2024-11-26] MEDS: ATIVAN 1 MG PO ×2 (09:37→21:37)
[2024-11-26] MEDS: VITAMIN B-12 1000 MCG PO (09:37)
[2024-11-26] MEDS: LOW STRENGTH ASPIRIN 81 MG PO (09:38)
[2024-11-26] MEDS: DESENEX/MITRAZOL/ZEASORB 1 APPLIC TOPICAL ×2 (09:46→21:41)
[2024-11-26] MEDS: DEPAKOTE SPRINKLE 125 MG PO ×2 (09:46→21:36)
[2024-11-26] MEDS: NORVASC 10 MG PO (09:50)
[2024-11-26 11:05] VITALS: BP 166/67
[2024-11-26 11:53] LABS: Glucose - Point of Care 90 mg/dl (70-99)
--- NOTE | 2024-11-26 12:11 | W.PN.HOSP.TC ---
Today's Communication/Plan
-
Iv albumin
Trend bmp
IV iron
trend cr
oob/pt/ot
Assessment / Plan
Assessment / Plan
General: Morbidly obese
HEENT: Moist mucous membranes, PERRLA and Other (Thick neck, rounded facies. Hirsute.)
Respiratory: Other (Decreased at bases -otherwise clear.)
Cardiac: S1/S2 and Regular Rhythm; No Murmur
GI: Other (Obese, not tender. Pos BS. )
Musculoskeletal: No Clubbing, No Cyanosis and Other (1-2+ pitting edema at ankles.)
Neuro: tired this morning. did not sleep much overnight
A/P: Patient is a 69y F with PMH significant for autism, psychosis and DM-II who presents to ED for evaluation of increased confusion. ? diarrhea, ? constipation.
Elevated creatinine likely ALBERTINA on CKD versus CKD
Nephrotic Syndrome
Edema
Hyperkalemia-improved
- No recent labs available for comparison - send to [facility] for recent records.
- Seems likely that this is chronic.
- CT done in the ED today shows severe atrophy of both kidneys c/w medicorenal disease.
- UA with 3+ albumin.
- Nephrology evaluation for additional recommendations.
- Follow labs / lytes for change.
- started on IV albumin
- Discussion with patient daughter on 11/25/2024 during patient hospitalization at [facility] patient was also found to have elevated creatinine.
Nonischemic myocardial injury
-Patient heart rate currently stable
-Echocardiogram EF of 70 to 75%. Normal regional wall motion. Normal right ventricular size and function. Mild aortic stenosis.
-Last cardiac cath was 2008 with normal coronaries
-Cardiology signed off
Altered Mental Status
Schizoaffective disorder/Bipolar disorder
- Not clear what acute alteration there has been.
- Patient with chronic cognitive impairment and psychosis with recent history noting progression.
- No evidence of acute infectious process, etc to explain any new / acute decompensation.
- Continue current psychotropic med regimen.
- Monitor for any changes while here.
- TSH normal
- Status post video swallow evaluation. Speech recommending regular diet.-Will continue with minced and moist for now.
Anemia - Likely due to CKD
- Hgb slightly decreased from prior baseline (again - compared to 2021 labs).
- Obtain more recent comparisons.
- Follow H&H for changes. start po b12. Trial of IV iron
DM-II
- Stable. Continue basal : bolus insulin regimen.
- Follow glucose and cover with SSI as needed.
- Check A1C and 9.3. POC 135.
Diarrhea / Constipation
- Unclear which has been occurring recently.
- Follow stools during hospital stay.
- CT done in the ED this evening with no obstruction, marked constipation, etc.
DVT Prophylaxis: Subcut heparin
Code Status: Full
PT/OT-SNF on dc.
upated Christo over the phone in details. All question answered to his satisfaction
Anticipated Discharge: > 48 hours
Subjective/Interval History
-
Date of Service: November 26, 2024
tired this morning
having bm
worked with PT/OT
Objective Data
-
Labs:
Laboratory Results
11/26/24
05:07
WBC 4.0 L
Hgb 9.0 L
Hct 27.3 L
Plt Count 184
Sodium 141
Potassium 4.7
Chloride 107
Carbon Dioxide 26
BUN 40 H
Creatinine 3.0 H
Glucose 125 H
Calcium 8.6
Total Bilirubin 0.1 L
AST 18
ALT 17
Alkaline Phosphatase 77
Vital Signs:
Vital Signs
Temp Pulse Resp BP Pulse Ox
98.7 F 68 19 166/67 97
11/26/24 11:05 11/26/24 11:05 11/26/24 11:05 11/26/24 11:05 11/26/24 11:05
I&O
11/25/24 11/26/24 11/27/24
06:59 06:59 06:59
Intake Total 680 / 680
Output Total 300 / 300 200 / 200
Balance -300 / -300 480 / 480
Data Reviewed
-
Total Time Spent with Patient (in minutes): 55
--- NOTE | 2024-11-26 12:16 | W.PN.NEPH.PH ---
Today's Communication / Plan
-
follow BMP
Assessment/Plan
-
69y F with PMH significant for psychiatric disorder, DM-II, obesity and polyneuropathy who presents to ED from local [place] for evaluation of altered mental status.
renal consul for acute kidney injury.
Impression.
Acute or chronic kidney disease with a creatinine of 1.42 in 2021 no more recent labs and presents with a creatinine greater of 3.
Anemia without thrombocytopenia.
Altered mental status without signs of infection.
proteinuria in the setting of the diabetes with an Asarco.
Hypertension.
Plan.
creatinine of 3 on admission in with the only known creatinine per record of 1.4 in 2021
await records
likely DKD
holding ACEI
no lasix today
follow BMP
-
-
Date of Service: November 26, 2024
CC / HPI / ROS
-
Chief Complaint:
ALBERTINA
History of Present Illness:
ALBERTINA/Cr unchanged at 3
nephrotic range proteinuria
hgb low 9, WBC low 4
Review of Systems:
Labs
-
Labs:
WBC 4.0 10^3/uL (4.8-10.8) L 11/26/24 05:07
RBC 3.14 10^6/uL (4.20-5.40) L 11/26/24 05:07
Hgb 9.0 g/dL (12.0-16.0) L 11/26/24 05:07
Hct 27.3 % (37.0-47.0) L 11/26/24 05:07
Plt Count 184 10^3/uL (130-400) 11/26/24 05:07
Sodium 141 mmol/L (135-145) 11/26/24 05:07
Potassium 4.7 mmol/L (3.5-5.1) 11/26/24 05:07
Chloride 107 mmol/L (98-107) 11/26/24 05:07
Carbon Dioxide 26 mmol/L (22-30) 11/26/24 05:07
BUN 40 mg/dl (7-17) H 11/26/24 05:07
Creatinine 3.0 mg/dL (0.6-1.0) H 11/26/24 05:07
eGFR 16.32 11/26/24 05:07
Glucose 125 mg/dl (70-99) H 11/26/24 05:07
Calcium 8.6 mg/dl (8.4-10.2) 11/26/24 05:07
Phosphorus 4.7 mg/dl (2.5-4.5) H 11/25/24 05:25
Tjb-B-Pjjpwbvzzqm Pept 822 pg/ml 11/24/24 16:55
Albumin 3.3 g/dl (3.5-5.0) L 11/26/24 05:07
Physical Exam
-
Vital Signs:
Vital Signs
Temp Pulse Resp BP Pulse Ox
98.7 F 68 19 166/67 97
11/26/24 11:05 11/26/24 11:05 11/26/24 11:05 11/26/24 11:05 11/26/24 11:05
[2024-11-26] MEDS: FERRLECIT 110 MG IV (14:47)
[2024-11-26 17:21] LABS: Glucose - Point of Care 124 mg/dl (70-99)
[2024-11-26 19:00] VITALS: BP 153/73
[2024-11-26 21:35] LABS: Glucose - Point of Care 123 mg/dl (70-99)
[2024-11-26] MEDS: APRESOLINE 10 MG PO (21:35)
[2024-11-26] MEDS: DESYREL 50 MG PO (21:37)
[2024-11-26] MEDS: LIPITOR 20 MG PO (21:37)
[2024-11-26] MEDS: SEROQUEL 50 MG PO (21:40)
[2024-11-26] MEDS: LANTUS 0.1 UNITS SC (21:41)
[2024-11-26 23:00] VITALS: BP 174/79
[2024-11-27] VITALS (8 sets, daily range): BP systolic 105–171; BP diastolic 60–97; BMI 37.2
[2024-11-27 03:41] LABS: Adrenocorticotropic Hormone 10.3 pg/mL (7.2-63.3)
[2024-11-27 05:37] LABS: % Basophils 0.5 % (0-2); % Eosinophils 4.3 % (0-6); % Immature Granulocytes 1.3 % (0-0.5); % Lymphocytes 22.4 % (20.5-51.1); % Monocytes 11.5 % (1.7-9.3); Absolute Eosinophils 0.2 10^3/uL (0-0.7); Absolute Immature Granulocytes 0.1 10^3/uL (0-0.05); Absolute Lymphocytes 0.9 10^3/uL (1.2-3.4); Absolute Monocytes 0.5 10^3/uL (0.1-0.6); Absolute Neutrophils 2.4 10^3/uL (1.4-6.5); Hematocrit 27.7 % (37.0-47.0); Hemoglobin 9.1 g/dL (12.0-16.0); Mean Corp Hgb Conc. 32.9 g/dL (33.0-37.0); Mean Corpuscular Hgb 28.4 pg (27.0-31.0); Mean Corpuscular Volume 86.6 fL (81.0-99.0); Mean Platelet Volume 9.5 fL (7.4-10.4); Nucleated Red Blood Cells % 0 %; Platelet Count 181 10^3/uL (130-400); Red Cell Dist. Width 13.9 % (11.5-14.5); White Blood Cell Count 3.9 10^3/uL (4.8-10.8)
[2024-11-27 06:01] LABS: Blood Urea Nitrogen 38 mg/dl (7-17); Calcium 8.6 mg/dl (8.4-10.2); Carbon Dioxide 27 mmol/L (22-30); Chloride 106 mmol/L (98-107); Estimated Creatinine Clearance 18 ml/min; Glucose 100 mg/dl (70-99); Potassium 4.4 mmol/L (3.5-5.1); Sodium 141 mmol/L (135-145); eGFR 17.73
[2024-11-27 07:56] LABS: Glucose - Point of Care 98 mg/dl (70-99)
[2024-11-27] MEDS: NOVOLOG FLEXPEN-LOW RESISTANCE SC (08:15)
[2024-11-27] MEDS: LOW STRENGTH ASPIRIN 81 MG PO (08:24)
[2024-11-27] MEDS: VITAMIN B-12 1000 MCG PO (08:24)
[2024-11-27] MEDS: APRESOLINE 10 MG PO (08:24)
[2024-11-27] MEDS: HEPARIN 5000 UNITS SC ×3 (08:24→23:42)
[2024-11-27] MEDS: DEPAKOTE SPRINKLE 125 MG PO ×2 (08:25→19:37)
[2024-11-27] MEDS: DESENEX/MITRAZOL/ZEASORB 1 APPLIC TOPICAL ×2 (08:25→19:41)
[2024-11-27] MEDS: ATIVAN 1 MG PO ×2 (08:25→19:36)
[2024-11-27] MEDS: NORVASC 10 MG PO (08:25)
--- NOTE | 2024-11-27 09:41 | W.PN.NEPH.PH ---
Today's Communication / Plan
-
Increase hydralazine
Assessment/Plan
-
69y F with PMH significant for psychiatric disorder, DM-II, obesity and polyneuropathy who presents to ED from local [place] for evaluation of altered mental status.
renal consul for acute kidney injury.
Impression.
Acute or chronic kidney disease with a creatinine of 1.42 in 2021 no more recent labs and presents with a creatinine greater of 3.
Anemia without thrombocytopenia.
Altered mental status without signs of infection.
proteinuria in the setting of the diabetes with an Asarco.
Hypertension.
Plan.
creatinine of 3 on admission in with the only known creatinine per record of 1.4 in 2021
await records
likely DKD
holding ACEI
no lasix today
follow BMP
Increase hydralazine
-
-
Date of Service: November 27, 2024
CC / HPI / ROS
-
Chief Complaint:
ALBERTINA
History of Present Illness:
ALBERTINA/Cr down to 2.8
nephrotic range proteinuria
hgb low 9.1 stable
Blood pressure elevated
WBC low 3.9 stable
Review of Systems:
No chest pain or shortness of breath
Labs
-
Labs:
WBC 3.9 10^3/uL (4.8-10.8) L 11/27/24 05:01
RBC 3.20 10^6/uL (4.20-5.40) L 11/27/24 05:01
Hgb 9.1 g/dL (12.0-16.0) L 11/27/24 05:01
Hct 27.7 % (37.0-47.0) L 11/27/24 05:01
Plt Count 181 10^3/uL (130-400) 11/27/24 05:01
Sodium 141 mmol/L (135-145) 11/27/24 05:01
Potassium 4.4 mmol/L (3.5-5.1) 11/27/24 05:01
Chloride 106 mmol/L (98-107) 11/27/24 05:01
Carbon Dioxide 27 mmol/L (22-30) 11/27/24 05:01
BUN 38 mg/dl (7-17) H 11/27/24 05:01
Creatinine 2.8 mg/dL (0.6-1.0) H 11/27/24 05:01
eGFR 17.73 11/27/24 05:01
Glucose 100 mg/dl (70-99) H 11/27/24 05:01
Calcium 8.6 mg/dl (8.4-10.2) 11/27/24 05:01
Phosphorus 4.7 mg/dl (2.5-4.5) H 11/25/24 05:25
Axw-N-Fmmehcfxeee Pept 822 pg/ml 11/24/24 16:55
Albumin 3.3 g/dl (3.5-5.0) L 11/26/24 05:07
Physical Exam
-
Vital Signs:
Vital Signs
Temp Pulse Resp BP Pulse Ox
97.6 F 71 18 170/93 98
11/27/24 07:43 11/27/24 08:25 11/27/24 07:43 11/27/24 08:25 11/27/24 07:43
Cardiovascular:: Regular rate and rhythm
Respiratory:: Bilateral: Coarse
Lung Excursion:: Normal
Abdomen:: Nontender and Soft
Bowel Sounds:: Normal
Extremity Edema:: +1: Bilateral:
[2024-11-27] MEDS: APRESOLINE 50 MG PO ×2 (10:12→19:39)
--- NOTE | 2024-11-27 11:31 | W.PN.HOSP.TC ---
Today's Communication/Plan
-
Trend cr
increase hydrlazine
snf on dc
Assessment / Plan
Assessment / Plan
General: Morbidly obese
HEENT: Moist mucous membranes, PERRLA and Other (Thick neck, rounded facies. Hirsute.)
Respiratory: Other (Decreased at bases -otherwise clear.)
Cardiac: S1/S2 and Regular Rhythm; No Murmur
GI: Other (Obese, not tender. Pos BS. )
Musculoskeletal: No Clubbing, No Cyanosis and Other (1-2+ pitting edema at ankles.)
Neuro: tired this morning. did not sleep much overnight
A/P: Patient is a 69y F with PMH significant for autism, psychosis and DM-II who presents to ED for evaluation of increased confusion. ? diarrhea, ? constipation.
Elevated creatinine likely ALBERTINA on CKD versus CKD
Nephrotic Syndrome
Edema
Hyperkalemia-improved
- No recent labs available for comparison - send to [facility] for recent records.
- Seems likely that this is chronic.
- CT done in the ED today shows severe atrophy of both kidneys c/w medicorenal disease.
- UA with 3+ albumin.
- Nephrology evaluation for additional recommendations.
- Follow labs / lytes for change.
- s/p IVF and IV albumin .Cr improving to 2.8.
- Discussion with patient daughter on 11/25/2024 during patient hospitalization at [facility] patient was also found to have elevated creatinine.
Nonischemic myocardial injury
-Patient heart rate currently stable
-Echocardiogram EF of 70 to 75%. Normal regional wall motion. Normal right ventricular size and function. Mild aortic stenosis.
-Last cardiac cath was 2008 with normal coronaries
-Cardiology signed off
Altered Mental Status
Schizoaffective disorder/Bipolar disorder
- Not clear what acute alteration there has been.
- Patient with chronic cognitive impairment and psychosis with recent history noting progression.
- No evidence of acute infectious process, etc to explain any new / acute decompensation.
- Continue current psychotropic med regimen.
- Monitor for any changes while here.
- TSH normal
- Status post video swallow evaluation. Speech recommending regular diet.-Will continue with minced and moist for now.
Anemia - Likely due to CKD
- Hgb slightly decreased from prior baseline (again - compared to 2021 labs).
- Obtain more recent comparisons.
- Follow H&H for changes. start po b12. Trial of IV iron
Primary HTN
-Cont norvasc 10mg daily
-Hydralazine started and uptitrated to 50mg BID
DM-II
- Stable. Continue basal : bolus insulin regimen.
- Follow glucose and cover with SSI as needed.
- Check A1C and 9.3. POC 98
Diarrhea / Constipation
- Unclear which has been occurring recently.
- Follow stools during hospital stay.
- CT done in the ED this evening with no obstruction, marked constipation, etc.
DVT Prophylaxis: Subcut heparin
Code Status: Full
PT/OT-SNF on dc.
upated Christo over the phone in details on 11/26/24. All question answered to his satisfaction
Anticipated Discharge: > 48 hours
Subjective/Interval History
-
Date of Service: November 27, 2024
BP elevated
opens eyes and having minimal conversation
tolerating diet
Objective Data
-
Labs:
Laboratory Results
11/27/24
05:01
WBC 3.9 L
Hgb 9.1 L
Hct 27.7 L
Plt Count 181
Sodium 141
Potassium 4.4
Chloride 106
Carbon Dioxide 27
BUN 38 H
Creatinine 2.8 H
Glucose 100 H
Calcium 8.6
Vital Signs:
Vital Signs
Temp Pulse Resp BP Pulse Ox
97.6 F 89 17 171/90 97
11/27/24 11:09 11/27/24 11:09 11/27/24 11:09 11/27/24 11:09 11/27/24 11:09
I&O
11/26/24 11/27/24 11/28/24
06:59 06:59 06:59
Intake Total 680 / 680 1080 / 1080 240 / 240
Output Total 200 / 200
Balance 480 / 480 1080 / 1080 240 / 240
Data Reviewed
-
Total Time Spent with Patient (in minutes): 55
[2024-11-27 12:02] LABS: Glucose - Point of Care 207 mg/dl (70-99)
[2024-11-27] MEDS: NOVOLOG FLEXPEN-LOW RESISTANCE 2 UNITS SC (12:32)
[2024-11-27] MEDS: FERRLECIT 110 MG IV (13:58)
--- NOTE | 2024-11-27 15:36 | PTCARENOTE ---
Pt c/o nausea. MD made aware, verbal order obtained.
[2024-11-27] MEDS: ZOFRAN 4 MG IV (15:55)
--- NOTE | 2024-11-27 16:16 | PTCARENOTE ---
Pt brother at bedside. Pt brother informed this RN about psychosis shot pt receives monthly and asked if psychology can be consulted. made aware of shot and brother request.
[2024-11-27 16:30] LABS: Glucose - Point of Care 195 mg/dl (70-99)
--- NOTE | 2024-11-27 17:29 | CM ---
Had lengthy conversation with Christo brother .
[place] need [place].
With pts history she may need level 2 assessment.
Pt was recently at [facility] brother said he will check if a level 2 was done.
She will also need auth .
Brother requested [facility] .
PLAN To SNf after located and auth obtained
[2024-11-27] MEDS: NOVOLOG FLEXPEN-LOW RESISTANCE 1 UNITS SC (17:45)
[2024-11-27] MEDS: TYLENOL 650 MG PO (19:36)
[2024-11-27] MEDS: LIPITOR 20 MG PO (21:05)
[2024-11-27] MEDS: DESYREL 50 MG PO (21:05)
[2024-11-27] MEDS: SEROQUEL 50 MG PO (21:05)
[2024-11-27 21:17] LABS: Glucose - Point of Care 192 mg/dl (70-99)
[2024-11-27] MEDS: LANTUS 0.1 UNITS SC (21:19)
[2024-11-28 06:00] VITALS: BMI 38.3
[2024-11-28 06:26] LABS: % Basophils 0.4 % (0-2); % Eosinophils 1.7 % (0-6); % Immature Granulocytes 2.2 % (0-0.5); % Lymphocytes 17.5 % (20.5-51.1); % Neutrophils 68.2 % (42.2-75.2); Absolute Eosinophils 0.1 10^3/uL (0-0.7); Absolute Immature Granulocytes 0.1 10^3/uL (0-0.05); Absolute Lymphocytes 0.8 10^3/uL (1.2-3.4); Absolute Monocytes 0.5 10^3/uL (0.1-0.6); Absolute Neutrophils 3.1 10^3/uL (1.4-6.5); Hematocrit 29.8 % (37.0-47.0); Hemoglobin 9.5 g/dL (12.0-16.0); Mean Corp Hgb Conc. 31.9 g/dL (33.0-37.0); Mean Corpuscular Hgb 27.6 pg (27.0-31.0); Mean Corpuscular Volume 86.6 fL (81.0-99.0); Nucleated Red Blood Cells % 0 %; Platelet Count 195 10^3/uL (130-400); Red Blood Cell Count 3.44 10^6/uL (4.20-5.40); Red Cell Dist. Width 14.2 % (11.5-14.5); White Blood Cell Count 4.6 10^3/uL (4.8-10.8)
[2024-11-28 06:46] LABS: Blood Urea Nitrogen 40 mg/dl (7-17); Calcium 8.1 mg/dl (8.4-10.2); Carbon Dioxide 26 mmol/L (22-30); Chloride 105 mmol/L (98-107); Estimated Creatinine Clearance 16 ml/min; Glucose 153 mg/dl (70-99); Sodium 140 mmol/L (135-145); eGFR 15.69
[2024-11-28 07:05] VITALS: BP 132/62
[2024-11-28 07:59] LABS: Glucose - Point of Care 134 mg/dl (70-99)
[2024-11-28] MEDS: NOVOLOG FLEXPEN-LOW RESISTANCE SC (08:59)
[2024-11-28] MEDS: NORVASC 10 MG PO (09:41)
[2024-11-28] MEDS: LOW STRENGTH ASPIRIN 81 MG PO (09:41)
[2024-11-28] MEDS: ATIVAN 1 MG PO (09:41)
[2024-11-28] MEDS: DEPAKOTE SPRINKLE 125 MG PO (09:41)
[2024-11-28] MEDS: APRESOLINE 50 MG PO ×2 (09:42→20:46)
[2024-11-28] MEDS: HEPARIN 5000 UNITS SC ×2 (09:42→15:36)
[2024-11-28] MEDS: VITAMIN B-12 1000 MCG PO (09:42)
[2024-11-28 11:05] VITALS: BP 142/64
[2024-11-28 11:57] LABS: Glucose - Point of Care 228 mg/dl (70-99)
--- NOTE | 2024-11-28 12:28 | W.PN.HOSP.TC ---
Today's Communication/Plan
-
Psych input for meds adjustment
Trend cr
AXR pending
SNF on dc
Assessment / Plan
Assessment / Plan
General: Morbidly obese
HEENT: Moist mucous membranes, PERRLA and Other (Thick neck, rounded facies. Hirsutem.)
Respiratory: Other (Decreased at bases -otherwise clear.)
Cardiac: S1/S2 and Regular Rhythm; No Murmur
GI: Other (Obese, not tender. Pos BS, mild distention
Musculoskeletal: No Clubbing, No Cyanosis and Other (1-2+ pitting edema at ankles.)
Neuro: tired this morning. did not sleep much overnight
A/P: Patient is a 69y F with PMH significant for autism, psychosis and DM-II who presents to ED for evaluation of increased confusion. ? diarrhea, ? constipation.
Altered Mental Status
Schizoaffective disorder/Bipolar disorder
- Not clear what acute alteration there has been.
- Patient with chronic cognitive impairment and psychosis with recent history noting progression.
- No evidence of acute infectious process, etc to explain any new / acute decompensation.
- Continue current psychotropic med regimen. Will ask Psych to assist. Seems more sleepy during daytime. May need to decrease ativan during daytime
- Monitor for any changes while here.
- TSH normal
- Status post video swallow evaluation. Speech recommending regular diet.-Will continue with minced and moist for now.
- Pt due to get SYSTENA injection (per family, pt high risk of developing acute psychotic episodes if does not get injection).
Elevated creatinine likely ALBERTINA on CKD versus CKD
Edema
Hyperkalemia-improved
- No recent labs available for comparison - send to [facility] for recent records. Still pending
- Seems likely that this is chronic.
- CT done in the ED today shows severe atrophy of both kidneys c/w medicorenal disease.
- UA with 3+ albumin.
- Nephrology evaluation for additional recommendations.
- Follow labs / lytes for change.
- s/p IVF and IV albumin .Cr at 3.1.
- Discussion with patient daughter on 11/25/2024 during patient hospitalization at [facility] patient was also found to have elevated creatinine.
Nonischemic myocardial injury
-Patient heart rate currently stable
-Echocardiogram EF of 70 to 75%. Normal regional wall motion. Normal right ventricular size and function. Mild aortic stenosis.
-Last cardiac cath was 2008 with normal coronaries
-Cardiology signed off
Anemia - Likely due to CKD
- Hgb slightly decreased from prior baseline (again - compared to 2021 labs).
- Obtain more recent comparisons.
- Follow H&H for changes. start po b12. Trial of IV iron
Primary HTN
-Cont norvasc 10mg daily
-Hydralazine started and uptitrated to 50mg BID
DM-II
- Stable. Continue basal : bolus insulin regimen.
- Follow glucose and cover with SSI as needed.
- Check A1C and 9.3. POC 98
Diarrhea / Constipation
- Unclear which has been occurring recently.
- Follow stools during hospital stay.
- CT done in the ED this evening with no obstruction, marked constipation, etc.
- Repeat Abdomen xray
DVT Prophylaxis: Subcut heparin
Code Status: Full
PT/OT-SNF on dc. Level II requirement will need to be looked into. CM aware for placement
Called brother at 2 listed number-no response.
Anticipated Discharge: > 48 hours
Subjective/Interval History
-
Date of Service: November 28, 2024
denies nausea or vomiting
toleraitng diet
Objective Data
-
Labs:
Laboratory Results
11/28/24
05:07
WBC 4.6 L
Hgb 9.5 L
Hct 29.8 L
Plt Count 195
Sodium 140
Potassium 5.0
Chloride 105
Carbon Dioxide 26
BUN 40 H
Creatinine 3.1 H
Glucose 153 H
Calcium 8.1 L
Vital Signs:
Vital Signs
Temp Pulse Resp BP Pulse Ox
98.7 F 81 19 142/64 94
11/28/24 11:05 11/28/24 11:05 11/28/24 11:05 11/28/24 11:05 11/28/24 11:05
I&O
11/27/24 11/28/24 11/29/24
06:59 06:59 06:59
Intake Total 1080 / 1080 830 / 830
Balance 1080 / 1080 830 / 830
Data Reviewed
-
Total Time Spent with Patient (in minutes): 55
--- NOTE | 2024-11-28 13:14 | CON.MD ---
Consultation - Medical
-
patient seen chart reviewed. patient is not a great historian. she is a 69 year old woman who was admitted for cough and constipation. her brother who is bernard told me she was last hospitalized in summer of 2020. it was then that she was put on
invega sustenna 156 mg last dose given on oct 09 2024 she has regularly received it since that time. she had in the past been on lithium stopped bc side effects clozaril also stopped bc side effects. brother is aware that patient has sx of
tardive dyskinesia but feels strongly she must have the invega to prevent rehospitalization. patient first was dx w psych illness over twenty years ago. she was living in [facility] from 2000 for several she has been at [facility] since sep 2021.
in between she lived in an appartment and had aides helping her out for 20 to 30 hours weekly. 2013 to 2018 [facility] but with active psychosis she was evicted they built her an appt in her father's house where she was for a few years with the
help of family and aides. brother describes she was in very good shape when she lived w [facility]. she was exercising regularly and eating healthily but has decomped since. (this family was very very engaged with the patient and it sounds like they
helped her incredibly and continue to help. brother brings her for invega sustenna. patient had [employer] insurance to help her but they abruptly canceled her hence the transfer to [facility]. brother is not happy with the care she has received
at [facility] and is planning to have her eventually (alf) brought back to dad's house and the family will organize care for her again. patient is also taking seroquel 50 mg q hs depakote 125 mg trazodone 50 mg qhs ativan o.5 mg bid
past psych hx see above
medical hx see above ckd noted increase in bun and cr in the past couple years now cr is 3. niddm ckd gerd obesity rash noted constipation cough possible pneumonia cardiomegaly echo w mild mr potassium coming down elevated at admit as was
po4 anemia
fh non contributory
substance abuse none
social see above patient has two kids and two grandkids. brother extremely supportive he is poa see above
mse alert ox3 cooperative but a poor historian speech is at times hard to understand . paucity of thought and expression. mood is a neutral affect constricted not suicidal. not overtly psychotic cognitively impaired insight judgment impaired
dx schizoaffective disorder
plan i spoke at length w brother. i am reluctant to use invega given the fact that recommendations from pharmacy say do NOT use for creatinine clearance between 10 and under 50. hers is 16 have a call in to dr martin her psychiatrist to discuss.
will optimize depakote which is excreted by liver and consider inc seroquel to keep mood as stable as possible. called dr martin to discuss he is in agreement with above. if her creatinine improves i will get the invega sent over for her from
[place] sunday of next week is the earliest. abilify and haldol might be alternatives to seroquel
--- NOTE | 2024-11-28 13:15 | CM ---
Spoke with brother Christo brother .
Christo does not believe she needed a level 2 assessment before.
Referral placed for [facility] .
Will, need auth.
Dispo from SNF will be home with care givers.
PLAN To SNf after located and auth obtained
[2024-11-28] MEDS: MILK OF MAGNESIA 30 ML PO (14:05)
[2024-11-28] MEDS: NOVOLOG FLEXPEN-LOW RESISTANCE 2 UNITS SC (14:05)
[2024-11-28] MEDS: DESENEX/MITRAZOL/ZEASORB 1 APPLIC TOPICAL ×2 (14:07→20:47)
[2024-11-28 15:05] VITALS: BP 138/86
[2024-11-28] MEDS: FERRLECIT 110 MG IV (15:35)
[2024-11-28] MEDS: DEPAKOTE SPRINKLE 250 MG PO ×2 (15:36→21:27)
--- NOTE | 2024-11-28 16:14 | W.PN.NEPH.PH ---
Today's Communication / Plan
-
lasix for SOB
Assessment/Plan
-
69y F with PMH significant for psychiatric disorder, DM-II, obesity and polyneuropathy who presents to ED from local [place] for evaluation of altered mental status.
renal consul for acute kidney injury.
Impression.
Acute or chronic kidney disease with a creatinine of 1.42 in 2021 no more recent labs and presents with a creatinine greater of 3.
Anemia without thrombocytopenia.
Altered mental status without signs of infection.
proteinuria in the setting of the diabetes with an Asarco.
Hypertension.
Plan.
creatinine no sig change at 3.1 since admit
known creatinine per record of 1.4 in 2021
await records
likely DKD and possible has progressed
bp stable, holding ACEI
will dose lasix, rales on exam, CXR Noted and wt is up
follow BMP
-
-
Date of Service: November 28, 2024
CC / HPI / ROS
-
Chief Complaint:
ALBERTINA
History of Present Illness:
ALBERTINA/Cr up at 3.1
nephrotic range proteinuria
hgb low 9.5 stable
Blood pressure stable
WBC low 4.6 stable
Review of Systems:
No chest pain
c/o lower abd pain, no BM
c/o sob
wt is up
Labs
-
Labs:
WBC 4.6 10^3/uL (4.8-10.8) L 11/28/24 05:07
RBC 3.44 10^6/uL (4.20-5.40) L 11/28/24 05:07
Hgb 9.5 g/dL (12.0-16.0) L 11/28/24 05:07
Hct 29.8 % (37.0-47.0) L 11/28/24 05:07
Plt Count 195 10^3/uL (130-400) 11/28/24 05:07
Sodium 140 mmol/L (135-145) 11/28/24 05:07
Potassium 5.0 mmol/L (3.5-5.1) 11/28/24 05:07
Chloride 105 mmol/L (98-107) 11/28/24 05:07
Carbon Dioxide 26 mmol/L (22-30) 11/28/24 05:07
BUN 40 mg/dl (7-17) H 11/28/24 05:07
Creatinine 3.1 mg/dL (0.6-1.0) H 11/28/24 05:07
eGFR 15.69 11/28/24 05:07
Glucose 153 mg/dl (70-99) H 11/28/24 05:07
Calcium 8.1 mg/dl (8.4-10.2) L 11/28/24 05:07
Phosphorus 4.7 mg/dl (2.5-4.5) H 11/25/24 05:25
Yrh-B-Biqzonykpyc Pept 822 pg/ml 11/24/24 16:55
Albumin 3.3 g/dl (3.5-5.0) L 11/26/24 05:07
Physical Exam
-
Vital Signs:
Vital Signs
Temp Pulse Resp BP Pulse Ox
98.0 F 101 18 138/86 95
11/28/24 15:05 11/28/24 15:05 11/28/24 15:05 11/28/24 15:05 11/28/24 15:05
Cardiovascular:: Regular rate and rhythm
Respiratory:: Bilateral: Rales
Lung Excursion:: Abnormal
Abdomen:: Distended, Nontender and Soft
Extremity Edema:: None: Bilateral:
Moran Catheter: No
[2024-11-28 16:49] LABS: Glucose - Point of Care 158 mg/dl (70-99)
[2024-11-28] MEDS: LASIX 40 MG IV (17:28)
[2024-11-28] MEDS: NOVOLOG FLEXPEN-LOW RESISTANCE 1 UNITS SC (18:05)
[2024-11-28] MEDS: ATIVAN 0.5 MG PO (20:47)
[2024-11-28 20:55] VITALS: BP 154/84
[2024-11-28] MEDS: LIPITOR 20 MG PO (21:27)
[2024-11-28] MEDS: DESYREL 50 MG PO (21:27)
[2024-11-28] MEDS: SEROQUEL 100 MG PO (21:30)
[2024-11-28 21:51] LABS: Glucose - Point of Care 197 mg/dl (70-99)
[2024-11-28] MEDS: LANTUS 0.1 UNITS SC (22:41)
[2024-11-28 23:25] VITALS: BP 153/60
[2024-11-29] MEDS: HEPARIN 5000 UNITS SC ×3 (00:29→17:04)
[2024-11-29] MEDS: TYLENOL PO (00:30)
[2024-11-29 03:00] VITALS: BP 142/72
[2024-11-29 06:00] VITALS: BMI 36.7
[2024-11-29 06:48] LABS: % Basophils 0.5 % (0-2); % Eosinophils 2.7 % (0-6); % Immature Granulocytes 3.6 % (0-0.5); % Lymphocytes 23.2 % (20.5-51.1); % Monocytes 9.9 % (1.7-9.3); % Neutrophils 60.1 % (42.2-75.2); Absolute Eosinophils 0.1 10^3/uL (0-0.7); Absolute Immature Granulocytes 0.2 10^3/uL (0-0.05); Absolute Monocytes 0.4 10^3/uL (0.1-0.6); Absolute Neutrophils 2.5 10^3/uL (1.4-6.5); Hematocrit 29.7 % (37.0-47.0); Hemoglobin 9.2 g/dL (12.0-16.0); Mean Corpuscular Hgb 27.5 pg (27.0-31.0); Mean Corpuscular Volume 88.7 fL (81.0-99.0); Mean Platelet Volume 9.6 fL (7.4-10.4); Nucleated Red Blood Cells % 0 %; Platelet Count 181 10^3/uL (130-400); Red Blood Cell Count 3.35 10^6/uL (4.20-5.40); Red Cell Dist. Width 14.2 % (11.5-14.5); White Blood Cell Count 4.1 10^3/uL (4.8-10.8)
[2024-11-29 07:00] VITALS: BP 129/67
[2024-11-29 07:16] LABS: Blood Urea Nitrogen 46 mg/dl (7-17); Calcium 8.5 mg/dl (8.4-10.2); Carbon Dioxide 28 mmol/L (22-30); Chloride 104 mmol/L (98-107); Estimated Creatinine Clearance 14 ml/min; Glucose 129 mg/dl (70-99); Potassium 4.8 mmol/L (3.5-5.1); Sodium 139 mmol/L (135-145); eGFR 13.56
[2024-11-29 08:13] LABS: Glucose - Point of Care 178 mg/dl (70-99)
[2024-11-29] MEDS: NOVOLOG FLEXPEN-LOW RESISTANCE 300 UNITS SC (09:59)
[2024-11-29] MEDS: VITAMIN B-12 1000 MCG PO (10:00)
[2024-11-29] MEDS: APRESOLINE 50 MG PO ×2 (10:00→20:22)
[2024-11-29] MEDS: LOW STRENGTH ASPIRIN 81 MG PO (10:00)
[2024-11-29] MEDS: NORVASC 10 MG PO (10:00)
[2024-11-29] MEDS: DESENEX/MITRAZOL/ZEASORB 1 APPLIC TOPICAL ×2 (10:01→21:56)
[2024-11-29] MEDS: ATIVAN 0.5 MG PO ×2 (10:02→20:22)
[2024-11-29] MEDS: DEPAKOTE SPRINKLE 250 MG PO ×3 (10:03→21:56)
[2024-11-29 11:00] VITALS: BP 111/55
[2024-11-29 11:51] LABS: Glucose - Point of Care 209 mg/dl (70-99)
[2024-11-29] MEDS: NOVOLOG FLEXPEN-LOW RESISTANCE 2 UNITS SC (12:02)
--- NOTE | 2024-11-29 12:34 | W.PN.HOSP.TC ---
Today's Communication/Plan
-
Trend creatinine
Continue with Depakote and Seroquel
Continue with reduced dose of Ativan
Await for placement
Bowel regimen
Assessment / Plan
Assessment / Plan
General: Morbidly obese
HEENT: Moist mucous membranes, PERRLA and Other (Thick neck, rounded facies. Hirsutem.)
Respiratory: Other (Decreased at bases -otherwise clear.) no cervical lymphadenopathy on palpation.
Cardiac: S1/S2 and Regular Rhythm; No Murmur
GI: Other (Obese, not tender. Pos BS, mild distention
Musculoskeletal: No Clubbing, No Cyanosis and Other (1-2+ pitting edema at ankles.)
Neuro: tired this morning. did not sleep much overnight
A/P: Patient is a 69y F with PMH significant for autism, psychosis and DM-II who presents to ED for evaluation of increased confusion. ? diarrhea, ? constipation.
Altered Mental Status
Schizoaffective disorder/Bipolar disorder
- Not clear what acute alteration there has been.
- Patient with chronic cognitive impairment and psychosis with recent history noting progression.
- No evidence of acute infectious process, etc to explain any new / acute decompensation.
- Continue current psychotropic med regimen. Ativan dose decreased to 0.5 milligram twice daily. Depakote dose adjusted to 250 mg 3 times daily from 125 mg twice daily. Seroquel dose increased to 100 mg nightly from 50 mg
- Monitor for any changes while here.
- TSH normal
- Status post video swallow evaluation. Speech recommending regular diet.-Will continue with minced and moist for now.
- Pt due to get SYSTENA injection (per family, pt high risk of developing acute psychotic episodes if does not get injection).
Elevated creatinine likely ALBERTINA on CKD versus CKD
Edema
Hyperkalemia-improved
- No recent labs available for comparison - send to [facility] for recent records. Still pending
- Seems likely that this is chronic.
- CT done in the ED today shows severe atrophy of both kidneys c/w medicorenal disease.
- UA with 3+ albumin.
- Nephrology evaluation for additional recommendations.
- Follow labs / lytes for change.
- s/p IVF and IV albumin status post Lasix yesterday. Creatinine bumped to 3.5.
- Discussion with patient daughter on 11/25/2024 during patient hospitalization at [facility] patient was also found to have elevated creatinine.
Nonischemic myocardial injury
-Patient heart rate currently stable
-Echocardiogram EF of 70 to 75%. Normal regional wall motion. Normal right ventricular size and function. Mild aortic stenosis.
-Last cardiac cath was 2008 with normal coronaries
-Cardiology signed off
Anemia - Likely due to CKD
- Hgb slightly decreased from prior baseline (again - compared to 2021 labs).
- Obtain more recent comparisons.
- Follow H&H for changes. start po b12. Trial of IV iron
Primary HTN
-Cont norvasc 10mg daily
-Hydralazine started and uptitrated to 50mg BID
DM-II
- Stable. Continue basal : bolus insulin regimen.
- Follow glucose and cover with SSI as needed.
- Check A1C and 9.3. POC 98
Diarrhea / Constipation
- Unclear which has been occurring recently.
- Follow stools during hospital stay.
- CT done in the ED this evening with no obstruction, marked constipation, etc.
- Repeat Abdomen xray with heavy stool burden. Enema ordered.
DVT Prophylaxis: Subcut heparin
Code Status: Full
PT/OT-SNF on dc. Level II requirement will need to be looked into. CM aware for placement
update brother over the phone in details
Anticipated Discharge: > 48 hours
Subjective/Interval History
-
Date of Service: November 29, 2024
eating yogurt
off oxygen
more awake this am
Objective Data
-
Labs:
Laboratory Results
11/29/24
06:19
WBC 4.1 L
Hgb 9.2 L
Hct 29.7 L
Plt Count 181
Sodium 139
Potassium 4.8
Chloride 104
Carbon Dioxide 28
BUN 46 H
Creatinine 3.5 H
Glucose 129 H
Calcium 8.5
Vital Signs:
Vital Signs
Temp Pulse Resp BP Pulse Ox
97.8 F 90 20 111/55 92
11/29/24 11:00 11/29/24 11:00 11/29/24 11:00 11/29/24 11:00 11/29/24 11:00
I&O
11/28/24 11/29/24 11/30/24
06:59 06:59 06:59
Intake Total 830 / 830 1020 / 1020 240 / 240
Balance 830 / 830 1020 / 1020 240 / 240
[2024-11-29] MEDS: FERRLECIT 110 MG IV (13:44)
--- NOTE | 2024-11-29 13:58 | W.PN.UPDATE ---
Update Note
Progress Note Update
69 y/o woman with autism and psychosis who had been at [facility] is in hospital for cough and constipation and found to be in renal failure with electrolyte abnormalities. Psychosis had been problematic here.
Today BUN 46, Cr 3.5, Cr Clearance 14; A1c 9.3
MSE: Obese woman lying flat in bed, alert and oriented. Complains of legs hurting. Articulate. Wants to live with her 96 y/o father, which seems to be the plan based on review of the chart. Eager to leave the hospital, but disliked [facility]
feeling she was neglected there. Denies hallucinations. No evidence of delusions or other psychotic symptoms. Not agitated. Did think she was 'punished' for getting out of bed on her own, but nurse expained she slipped on her feces and the
concern is her safety. Told her she was not punished and no one is angry with her.
Has daughter and a special needs granddaughter. Raised in [facility]; father lives in [place].
Depakote was increased due to supbtherapeutic level; should check level early next week. Seroquel 100 mg. HS had been added with hope of stopping Invega injections. Ativan decreased to 0.5 mg. BID and trazodone 50 mg. HS continued from home.
Will continue medications unchanged. Seems to be much improved and tolerating medication changes.
Psychiatry will continue to follow.
[2024-11-29 15:00] VITALS: BP 115/72
[2024-11-29 17:02] LABS: Glucose - Point of Care 133 mg/dl (70-99)
[2024-11-29] MEDS: NOVOLOG FLEXPEN-LOW RESISTANCE SC (17:04)
--- NOTE | 2024-11-29 17:04 | W.PN.NEPH.PH ---
Today's Communication / Plan
-
follow lab s
Assessment/Plan
-
69y F with PMH significant for psychiatric disorder, DM-II, obesity and polyneuropathy who presents to ED from local [place] for evaluation of altered mental status.
renal consul for acute kidney injury.
Impression.
Acute or chronic kidney disease with a creatinine of 1.42 in 2021 no more recent labs and presents with a creatinine greater of 3.
Anemia without thrombocytopenia.
Altered mental status without signs of infection.
proteinuria in the setting of the diabetes with an Asarco.
Hypertension.
Plan.
creatinine is up at 3.5 post lasix
known creatinine per record of 1.4 in 2021
await records
likely DKD and possible has progressed
bp stable, holding ACEI
no lasix today, wt better
follow BMP
-
-
Date of Service: November 29, 2024
CC / HPI / ROS
-
Chief Complaint:
ALBERTINA
History of Present Illness:
ALBERTINA/Cr up at 3.5
nephrotic range proteinuria
hgb low 9.2 stable
Blood pressure stable
WBC low 4.1 stable
Review of Systems:
No chest pain
no sob
sleeping during visit
wt is down
Labs
-
Labs:
WBC 4.1 10^3/uL (4.8-10.8) L 11/29/24 06:19
RBC 3.35 10^6/uL (4.20-5.40) L 11/29/24 06:19
Hgb 9.2 g/dL (12.0-16.0) L 11/29/24 06:19
Hct 29.7 % (37.0-47.0) L 11/29/24 06:19
Plt Count 181 10^3/uL (130-400) 11/29/24 06:19
Sodium 139 mmol/L (135-145) 11/29/24 06:19
Potassium 4.8 mmol/L (3.5-5.1) 11/29/24 06:19
Chloride 104 mmol/L (98-107) 11/29/24 06:19
Carbon Dioxide 28 mmol/L (22-30) 11/29/24 06:19
BUN 46 mg/dl (7-17) H 11/29/24 06:19
Creatinine 3.5 mg/dL (0.6-1.0) H 11/29/24 06:19
eGFR 13.56 11/29/24 06:19
Glucose 129 mg/dl (70-99) H 11/29/24 06:19
Calcium 8.5 mg/dl (8.4-10.2) 11/29/24 06:19
Phosphorus 4.7 mg/dl (2.5-4.5) H 11/25/24 05:25
Xtv-M-Ksyawblbopv Pept 822 pg/ml 11/24/24 16:55
Albumin 3.3 g/dl (3.5-5.0) L 11/26/24 05:07
Physical Exam
-
Vital Signs:
Vital Signs
Temp Pulse Resp BP Pulse Ox
98.7 F 78 20 115/72 94
11/29/24 15:00 11/29/24 15:00 11/29/24 15:00 11/29/24 15:00 11/29/24 15:00
Cardiovascular:: Regular rate and rhythm
Respiratory:: Bilateral: CTA (decreased)
Lung Excursion:: Abnormal
Abdomen:: Distended, Nontender and Soft
Extremity Edema:: None: Bilateral:
Moran Catheter: No
[2024-11-29 19:00] VITALS: BP 171/84
[2024-11-29 21:38] LABS: Glucose - Point of Care 214 mg/dl (70-99)
[2024-11-29] MEDS: SEROQUEL 100 MG PO (21:55)
[2024-11-29] MEDS: LIPITOR 20 MG PO (21:55)
[2024-11-29] MEDS: LANTUS 0.1 UNITS SC (21:56)
[2024-11-29] MEDS: DESYREL 50 MG PO (21:56)
[2024-11-29 23:00] VITALS: BP 135/53
[2024-11-30] MEDS: HEPARIN SC ×2 (01:35→09:16)
[2024-11-30 06:00] VITALS: BMI 36.7
[2024-11-30 07:00] VITALS: BP 145/58
[2024-11-30 07:47] LABS: Hematocrit 28.6 % (37.0-47.0); Hemoglobin 9.1 g/dL (12.0-16.0); Mean Corp Hgb Conc. 31.8 g/dL (33.0-37.0); Mean Corpuscular Hgb 28.1 pg (27.0-31.0); Mean Corpuscular Volume 88.3 fL (81.0-99.0); Mean Platelet Volume 9.6 fL (7.4-10.4); Platelet Count 181 10^3/uL (130-400); Red Blood Cell Count 3.24 10^6/uL (4.20-5.40); Red Cell Dist. Width 14.3 % (11.5-14.5); White Blood Cell Count 4.8 10^3/uL (4.8-10.8)
[2024-11-30 07:58] LABS: Blood Urea Nitrogen 51 mg/dl (7-17); Calcium 8.4 mg/dl (8.4-10.2); Carbon Dioxide 26 mmol/L (22-30); Chloride 103 mmol/L (98-107); Estimated Creatinine Clearance 15 ml/min; Glucose 151 mg/dl (70-99); Potassium 4.9 mmol/L (3.5-5.1); Sodium 138 mmol/L (135-145); eGFR 14.04
[2024-11-30 08:09] LABS: Glucose - Point of Care 164 mg/dl (70-99)
[2024-11-30 08:51] LABS: % Eosinophils 2.9 % (0-6); % Immature Granulocytes 6.5 % (0-0.5); % Lymphocytes 18.2 % (20.5-51.1); % Monocytes 8.4 % (1.7-9.3); Absolute Basophils 0.1 10^3/uL (0-0.2); Absolute Eosinophils 0.1 10^3/uL (0-0.7); Absolute Immature Granulocytes 0.3 10^3/uL (0-0.05); Absolute Lymphocytes 0.9 10^3/uL (1.2-3.4); Absolute Monocytes 0.4 10^3/uL (0.1-0.6); Nucleated Red Blood Cells % 0 %
[2024-11-30] MEDS: APRESOLINE 50 MG PO ×2 (09:13→20:34)
[2024-11-30] MEDS: NORVASC 10 MG PO (09:13)
[2024-11-30] MEDS: DEPAKOTE SPRINKLE 250 MG PO ×3 (09:13→21:57)
[2024-11-30] MEDS: VITAMIN B-12 1000 MCG PO (09:13)
[2024-11-30] MEDS: ATIVAN 0.5 MG PO ×2 (09:14→20:33)
[2024-11-30] MEDS: NOVOLOG FLEXPEN-LOW RESISTANCE 1 UNITS SC (09:14)
[2024-11-30] MEDS: DESENEX/MITRAZOL/ZEASORB 1 APPLIC TOPICAL ×2 (09:15→20:34)
[2024-11-30] MEDS: LOW STRENGTH ASPIRIN 81 MG PO (09:16)
--- NOTE | 2024-11-30 11:15 | W.PN.UPDATE ---
Addendum entered and electronically signed by Christo Zuñiga MD 11/30/24 11:23:
Valproate level was aleady ordered by Dr. Alcala for tomorrow morning.
Original Note:
Update Note
Progress Note Update
69 y/o woman with diagnoses of autism and psychosis seen for follow-up. Found to have chronic renal failure (not new finding apparently); has DM. Her psych meds were changed during this admission with hope of all oral regimen.
Today she is more lethargic than yesterday (although was seen in afternoon yesterday). Is not oriented to day of week, but otherwise sensorium intact. Has multiple medical complaints: nausea, leg pain. Pleasant. Denies major mood disturbance
and no evidence of hallucinations, delusions, suicidal ideation or homicidal ideation.
Labs today: BUN 51,Cr 3.4, Gluc 151, Na 138, K 4.9. I will order a valproate (Depakote) level.
Psychiatry will follow.
[2024-11-30 11:52] LABS: Glucose - Point of Care 237 mg/dl (70-99)
--- NOTE | 2024-11-30 12:32 | W.PN.HOSP.TC ---
Today's Communication/Plan
-
trend cr
increase lantus
monitor mentation
depakote level in am-meds adjustment per psych
oob/pt/ot
Assessment / Plan
Assessment / Plan
General: Morbidly obese
HEENT: Moist mucous membranes, PERRLA and Other (Thick neck, rounded facies. Hirsutem.)
Respiratory: Other (Decreased at bases -otherwise clear.) no cervical lymphadenopathy on palpation.
Cardiac: S1/S2 and Regular Rhythm; No Murmur
GI: +bs, obese, non tender,
Musculoskeletal: No Clubbing, No Cyanosis and Other (1-2+ pitting edema at ankles.)
Neuro: tired this morning. did not sleep much overnight
A/P: Patient is a 69y F with PMH significant for autism, psychosis and DM-II who presents to ED for evaluation of increased confusion. ? diarrhea, ? constipation.
Altered Mental Status
Schizoaffective disorder/Bipolar disorder
- Not clear what acute alteration there has been.
- Patient with chronic cognitive impairment and psychosis with recent history noting progression.
- No evidence of acute infectious process, etc to explain any new / acute decompensation.
- Continue current psychotropic med regimen. Ativan dose decreased to 0.5 milligram twice daily. Depakote dose adjusted to 250 mg 3 times daily from 125 mg twice daily. Seroquel dose increased to 100 mg nightly from 50 mg
- Depakote dose in AM. Meds adjustment per psych
- Monitor for any changes while here.
- TSH normal
- Status post video swallow evaluation. Speech recommending regular diet.-Will continue with minced and moist for now.
- Pt due to get SYSTENA injection (per family, pt high risk of developing acute psychotic episodes if does not get injection).
Elevated creatinine likely ALBERTINA on CKD versus CKD
Edema
Hyperkalemia-improved
- No recent labs available for comparison - send to [facility] for recent records. Still pending
- Seems likely that this is chronic.
- CT done in the ED today shows severe atrophy of both kidneys c/w medicorenal disease.
- UA with 3+ albumin.
- Nephrology evaluation for additional recommendations.
- Follow labs / lytes for change.
- s/p IVF and IV albumin status post Lasix. Creatinine at 3.4. Trend bmp for now.
- Discussion with patient daughter on 11/25/2024 during patient hospitalization at [facility] patient was also found to have elevated creatinine.
Nonischemic myocardial injury
-Patient heart rate currently stable
-Echocardiogram EF of 70 to 75%. Normal regional wall motion. Normal right ventricular size and function. Mild aortic stenosis.
-Last cardiac cath was 2008 with normal coronaries
-Cardiology signed off
Anemia - Likely due to CKD
- Hgb slightly decreased from prior baseline (again - compared to 2021 labs).
- Follow H&H for changes. start po b12. Trial of IV iron
Primary HTN
-Cont norvasc 10mg daily
-Hydralazine started and uptitrated to 50mg BID
DM-II
- Stable. Increase lantus dose to 14 units
- Follow glucose and cover with SSI as needed.
- Check A1C and 9.3.
Diarrhea / Constipation
- Unclear which has been occurring recently.
- Follow stools during hospital stay.
- CT done in the ED this evening with no obstruction, marked constipation, etc.
- Repeat Abdomen xray with heavy stool burden. Enema with positive results.
DVT Prophylaxis: Subcut heparin
Code Status: Full
PT/OT-SNF on dc. Level II requirement will need to be looked into. CM looking for placement
update brother over the phone in details on 11/29/24
Anticipated Discharge: > 48 hours
Subjective/Interval History
-
Date of Service: November 30, 2024
more sleepy this morning
had multiple bm yesterday after enema
Objective Data
-
Labs:
Laboratory Results
11/30/24
06:58
WBC 4.8
Hgb 9.1 L
Hct 28.6 L
Plt Count 181
Sodium 138
Potassium 4.9
Chloride 103
Carbon Dioxide 26
BUN 51 H
Creatinine 3.4 H
Glucose 151 H
Calcium 8.4
Vital Signs:
Vital Signs
Temp Pulse Resp BP Pulse Ox
97.7 F 84 18 145/58 95
11/30/24 07:00 11/30/24 07:00 11/30/24 07:00 11/30/24 07:00 11/30/24 07:00
I&O
11/29/24 11/30/24 12/01/24
06:59 06:59 06:59
Intake Total 1020 / 1020 1200 / 1200
Balance 1020 / 1020 1200 / 1200
Data Reviewed
-
Total Time Spent with Patient (in minutes): 55
[2024-11-30] MEDS: NOVOLOG FLEXPEN-LOW RESISTANCE 3 UNITS SC (12:48)
--- NOTE | 2024-11-30 13:22 | CM ---
Addendum entered by Aracelis Martinez 11/30/24 14:08:
At this time, [facility] cannot commit to bed availability.
Requested CM to contact [facility] tomorrow to confirm availability and move forward with auth initiation / NPIs.
Original Note:
CM following re: d/c planning.
D/c plan is for SNF placement.
[facility] has accepted pt, based on bed availability at time of d/c.
CM requested NPIs for auth initiation, awaiting correspondence.
Goal: SNF, possibly at [facility], pending bed availability and auth approval.
[2024-11-30] MEDS: TYLENOL 650 MG PO (13:38)
[2024-11-30 15:00] VITALS: BP 139/69
[2024-11-30] MEDS: FERRLECIT IV (15:07)
--- NOTE | 2024-11-30 16:50 | W.PN.NEPH.PH ---
Today's Communication / Plan
-
lasix
Assessment/Plan
-
69y F with PMH significant for psychiatric disorder, DM-II, obesity and polyneuropathy who presents to ED from local [place] for evaluation of altered mental status.
renal consul for acute kidney injury.
Impression.
Acute or chronic kidney disease with a creatinine of 1.42 in 2021 no more recent labs and presents with a creatinine greater of 3.
Anemia without thrombocytopenia.
Altered mental status without signs of infection.
proteinuria in the setting of the diabetes with an Asarco.
Hypertension.
Plan.
creatinine high at 3.4
known creatinine per record of 1.4 in 2021
await records
likely DKD and possible has progressed
bp stable, holding ACEI
dose lasix today-looks very swollen though no change in wt
follow BMP
Long discussion with the brother Christo HUNT on phone regarding her renal dysfunction. He reports when she had 24hr care at home her health status was better controlled however due to insurance issues she had to be moved to a facility and since then
her diabetes became uncontrolled as patient no longer was following the restriction on the diet or exercise. her A1c was at 9.3 on admission, creatinine Continue to remain high and increased with the use of Lasix. However she is significantly
volume overloaded. Moving forward will needed diuretics however this may result in higher creatinine. Reviewed with the brother that she is at risk of dialysis in neat future. He understands and also feels that Melissa may not be able to tolerate
the dialysis. Which I completely agree with as her mental status/cognition will be a bigger barrier to safely do dialysis when she needs.
Apparently her mom was on dialysis too, brother understands the burden of dialysis and may not want his sister to go through this.
No decision made at this point regarding possible future need of dialysis.
-
-
Date of Service: November 30, 2024
CC / HPI / ROS
-
Chief Complaint:
ALBERTINA
History of Present Illness:
ALBERTINA/Cr high at 3.4
nephrotic range proteinuria
hgb low 9.1 stable
Blood pressure stable
Review of Systems:
No chest pain
c/o sob
sleeping during visit
wt no change
Labs
-
Labs:
WBC 4.8 10^3/uL (4.8-10.8) 11/30/24 06:58
RBC 3.24 10^6/uL (4.20-5.40) L 11/30/24 06:58
Hgb 9.1 g/dL (12.0-16.0) L 11/30/24 06:58
Hct 28.6 % (37.0-47.0) L 11/30/24 06:58
Plt Count 181 10^3/uL (130-400) 11/30/24 06:58
Sodium 138 mmol/L (135-145) 11/30/24 06:58
Potassium 4.9 mmol/L (3.5-5.1) 11/30/24 06:58
Chloride 103 mmol/L (98-107) 11/30/24 06:58
Carbon Dioxide 26 mmol/L (22-30) 11/30/24 06:58
BUN 51 mg/dl (7-17) H 11/30/24 06:58
Creatinine 3.4 mg/dL (0.6-1.0) H 11/30/24 06:58
eGFR 14.04 11/30/24 06:58
Glucose 151 mg/dl (70-99) H 11/30/24 06:58
Calcium 8.4 mg/dl (8.4-10.2) 11/30/24 06:58
Phosphorus 4.7 mg/dl (2.5-4.5) H 11/25/24 05:25
Hyz-H-Nwpiefecfef Pept 822 pg/ml 11/24/24 16:55
Albumin 3.3 g/dl (3.5-5.0) L 11/26/24 05:07
Physical Exam
-
Vital Signs:
Vital Signs
Temp Pulse Resp BP Pulse Ox
97.7 F 84 18 145/58 95
11/30/24 07:00 11/30/24 07:00 11/30/24 07:00 11/30/24 07:00 11/30/24 07:00
Cardiovascular:: Regular rate and rhythm
Respiratory:: Bilateral: Coarse
Lung Excursion:: Abnormal
Abdomen:: Distended, Nontender and Soft
Extremity Edema:: +2: Bilateral:
Moran Catheter: No
[2024-11-30] MEDS: HEPARIN 5000 UNITS SC (16:53)
[2024-11-30 17:43] LABS: Glucose - Point of Care 131 mg/dl (70-99)
[2024-11-30] MEDS: NOVOLOG FLEXPEN-LOW RESISTANCE SC (17:47)
[2024-11-30] MEDS: LASIX 40 MG PO (18:10)
[2024-11-30 21:06] LABS: Glucose - Point of Care 166 mg/dl (70-99)
[2024-11-30 21:57] VITALS: BP 156/76
[2024-11-30] MEDS: LIPITOR 20 MG PO (21:57)
[2024-11-30] MEDS: SEROQUEL 100 MG PO (21:57)
[2024-11-30] MEDS: LANTUS 0.14 UNITS SC (21:57)
[2024-11-30] MEDS: DESYREL 50 MG PO (21:57)
[2024-12-01] MEDS: HEPARIN SC ×2 (01:02→09:48)
[2024-12-01 07:10] VITALS: BP 109/69
[2024-12-01 07:48] LABS: Glucose - Point of Care 138 mg/dl (70-99)
[2024-12-01 07:54] LABS: Hematocrit 30.8 % (37.0-47.0); Hemoglobin 9.8 g/dL (12.0-16.0); Mean Corp Hgb Conc. 31.8 g/dL (33.0-37.0); Mean Platelet Volume 9.6 fL (7.4-10.4); Platelet Count 212 10^3/uL (130-400); Red Cell Dist. Width 14.4 % (11.5-14.5)
[2024-12-01 08:26] LABS: Blood Urea Nitrogen 54 mg/dl (7-17); Calcium 8.2 mg/dl (8.4-10.2); Carbon Dioxide 27 mmol/L (22-30); Chloride 102 mmol/L (98-107); Estimated Creatinine Clearance 11 ml/min; Glucose 133 mg/dl (70-99); Sodium 138 mmol/L (135-145); eGFR 10.59
[2024-12-01] MEDS: NOVOLOG FLEXPEN-LOW RESISTANCE SC ×2 (09:42→18:45)
[2024-12-01] MEDS: VITAMIN B-12 1000 MCG PO (09:44)
[2024-12-01] MEDS: DEPAKOTE SPRINKLE 250 MG PO ×3 (09:44→22:40)
[2024-12-01] MEDS: ATIVAN 0.5 MG PO ×2 (09:44→21:16)
[2024-12-01] MEDS: LOW STRENGTH ASPIRIN 81 MG PO (09:45)
[2024-12-01] MEDS: APRESOLINE 50 MG PO ×2 (09:45→21:17)
[2024-12-01] MEDS: NORVASC 10 MG PO (09:45)
[2024-12-01] MEDS: DESENEX/MITRAZOL/ZEASORB 1 APPLIC TOPICAL ×2 (09:50→21:17)
[2024-12-01] MEDS: TYLENOL 650 MG PO (10:06)
[2024-12-01 11:40] LABS: Glucose - Point of Care 292 mg/dl (70-99)
[2024-12-01 12:35] LABS: % Basophils 0.8 % (0-2); % Eosinophils 3.4 % (0-6); % Immature Granulocytes 6.6 % (0-0.5); % Lymphocytes 16.8 % (20.5-51.1); % Monocytes 7.4 % (1.7-9.3); Absolute Eosinophils 0.2 10^3/uL (0-0.7); Absolute Immature Granulocytes 0.3 10^3/uL (0-0.05); Absolute Lymphocytes 0.8 10^3/uL (1.2-3.4); Absolute Monocytes 0.4 10^3/uL (0.1-0.6); Absolute Neutrophils 3.3 10^3/uL (1.4-6.5); Nucleated Red Blood Cells % 0 %
--- NOTE | 2024-12-01 13:39 | W.PN.NEPH.PH ---
Today's Communication / Plan
-
Maintain IV Lasix
Follow BMP
Assessment/Plan
-
69y F with PMH significant for psychiatric disorder, DM-II, obesity and polyneuropathy who presents to ED from local [place] for evaluation of altered mental status.
renal consul for acute kidney injury.
Impression.
Acute or chronic kidney disease with a creatinine of 1.42 in 2021 no more recent labs and presents with a creatinine greater of 3.
Anemia without thrombocytopenia.
Altered mental status without signs of infection.
proteinuria in the setting of the diabetes with an Asarco.
Hypertension.
Plan.
creatinine higher at 4.3, uop ?
known creatinine per record of 1.4 in 2021
await records
likely DKD and possible has progressed
bp stable, holding ACEI
dose lasix today again 40mg IV-looks very swollen though no change in wt, maintain diuresis
follow BMP
Previous Long discussion with the brother Christo HUNT on phone regarding her renal dysfunction. He reports when she had 24hr care at home her health status was better controlled however due to insurance issues she had to be moved to a facility and
since then her diabetes became uncontrolled as patient no longer was following the restriction on the diet or exercise. her A1c was at 9.3 on admission, creatinine Continue to remain high and increased with the use of Lasix. However she is
significantly volume overloaded. Moving forward will needed diuretics however this may result in higher creatinine. Reviewed with the brother that she is at risk of dialysis in neat future. He understands and also feels that Melissa may not be able
to tolerate the dialysis. Which I completely agree with as her mental status/cognition will be a bigger barrier to safely do dialysis when she needs.
Apparently her mom was on dialysis too, brother understands the burden of dialysis and may not want his sister to go through this.
No decision made at this point regarding possible future need of dialysis.
-
-
Date of Service: December 01, 2024
CC / HPI / ROS
-
Chief Complaint:
ALBERTINA
History of Present Illness:
ALBERTINA/Cr higher at 4.3
nephrotic range proteinuria
hgb low 9.8 stable
Blood pressure stable
Review of Systems:
No chest pain
c/o sob
sleeping during visit
wt no change
Labs
-
Labs:
WBC 5.0 10^3/uL (4.8-10.8) 12/01/24 07:17
RBC 3.50 10^6/uL (4.20-5.40) L 12/01/24 07:17
Hgb 9.8 g/dL (12.0-16.0) L 12/01/24 07:17
Hct 30.8 % (37.0-47.0) L 12/01/24 07:17
Plt Count 212 10^3/uL (130-400) 12/01/24 07:17
Sodium 138 mmol/L (135-145) 12/01/24 07:17
Potassium 5.0 mmol/L (3.5-5.1) 12/01/24 07:17
Chloride 102 mmol/L (98-107) 12/01/24 07:17
Carbon Dioxide 27 mmol/L (22-30) 12/01/24 07:17
BUN 54 mg/dl (7-17) H 12/01/24 07:17
Creatinine 4.3 mg/dL (0.6-1.0) H* 12/01/24 07:17
eGFR 10.59 12/01/24 07:17
Glucose 133 mg/dl (70-99) H 12/01/24 07:17
Calcium 8.2 mg/dl (8.4-10.2) L 12/01/24 07:17
Phosphorus 4.7 mg/dl (2.5-4.5) H 11/25/24 05:25
Boz-L-Lilblwtxzzs Pept 822 pg/ml 11/24/24 16:55
Albumin 3.3 g/dl (3.5-5.0) L 11/26/24 05:07
Physical Exam
-
Vital Signs:
Vital Signs
Temp Pulse Resp BP Pulse Ox
97.9 F 97 16 109/69 98
12/01/24 07:10 12/01/24 07:10 12/01/24 07:10 12/01/24 07:10 12/01/24 07:10
Cardiovascular:: Regular rate and rhythm
Respiratory:: Bilateral: Coarse
Lung Excursion:: Abnormal
Abdomen:: Distended, Nontender and Soft
Extremity Edema:: +2: Bilateral:
Moran Catheter: No
[2024-12-01] MEDS: NOVOLOG FLEXPEN-LOW RESISTANCE 3 UNITS SC (13:40)
--- NOTE | 2024-12-01 14:37 | W.PN.UPDATE ---
Update Note
Progress Note Update
Pt seen, reviewed [facility] outpatient record. Pt has been maintained on Invega Sustenna HARRIS 156 mg IM monthly, last given on 10/09/24; Cymbalta/duloxetine 60 mg QD, Tiagabine 4 mg HS for insomnia. PCP has been prescribing Ativan 1 mg BID
long-term, last filled on 11/10/24. Seroquel and Trazodone were not noted to be in pt's regimen at [facility]. Here at , Seroquel has been increased to 100 mg HS starting 11/28, and Depakote increased to 250 mg TID 11/28. Invega Sustenna injection
has been held due to contraindication with moderate to severely impaired renal function. Creatinine is trending worse/higher from 11/28 to today. Pt seen lying in bed on side, sleeping, not waking to verbal stimuli. Compared to her usual baseline
in outpatient visits, pt appears swollen/fluid overloaded. VPA level this morning 46.0. Spoke with brother Christo by phone; confirmed pt was not prescribed Depakote, Trazodone, or Seroquel recently, although they appear on the unconfirmed list of
home medications. Pt's brother is concerned about the risk of recurrent psychosis/ari, and would accept some risk of worsening renal function to keep pt on it. Discussed Abilify as a possible alternative.
Imp: Schizoaffective d/o, bipolar type; no current signs of psychosis or ari, pt sedated
Rec: Would continue current dose of Depakote- will likely rise into therapeutic range with additional time
Will taper down Seroquel- appears to be sedating, also has significant risk of elevating blood glucose. Will stop Trazodone (not on at home), hold off Tiagabine and Duloxetine (also not recommended with severe renal impairment)
Consider switching from Invega to Abilify- does not appear to require dose adjustment for renal impairment
will follow
--- NOTE | 2024-12-01 14:52 | W.PN.HOSP.TC ---
Today's Communication/Plan
-
monitor renal function
sedated from meds today, may need to hold night meds
continue supportive care
Assessment / Plan
Assessment / Plan
Altered Mental Status
Schizoaffective disorder/Bipolar disorder
- Not clear what acute alteration there has been.
- Patient with chronic cognitive impairment and psychosis with recent history noting progression.
- No evidence of acute infectious process, etc to explain any new / acute decompensation.
- Continue current psychotropic med regimen. Ativan dose decreased to 0.5 milligram twice daily. Depakote dose adjusted to 250 mg 3 times daily from 125 mg twice daily. Seroquel dose increased to 100 mg nightly from 50 mg
- Depakote level WNL - 46 today
- Monitor for any changes while here.
- TSH normal
- Status post video swallow evaluation. Speech recommending regular diet.-Will continue with minced and moist for now.
- Pt was getting Invega Sustenna every month although unable to be provided due to creatinine clearance is close to 10 and is contraindicated.
ALBERTINA on CKD versus advancing CKD
Edema
Hyperkalemia-improved
Patient diabetic nephropathy
- No recent labs available for comparison - send to [facility] for recent records. Still pending
- Seems likely that this is chronic.
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
- UA with 3+ albumin.
- Nephrology evaluation for additional recommendations.
- Follow labs /lytes for change.
- s/p IVF and IV albumin and lasix.
- Discussion with patient daughter on 11/25/2024 during patient hospitalization at [facility] patient was also found to have elevated creatinine.
- Patient with worsening renal function and potentially require hemodialysis support, not ideal candidate and nephrology has discussed this with patient family.
Nonischemic myocardial injury
-Patient heart rate currently stable
-Echocardiogram EF of 70 to 75%. Normal regional wall motion. Normal right ventricular size and function. Mild aortic stenosis.
-Last cardiac cath was 2008 with normal coronaries
-Cardiology signed off
Anemia - Likely due to CKD
- Hgb slightly decreased from prior baseline (again - compared to 2021 labs).
- Follow H&H for changes. start po b12. Trial of IV iron
Primary HTN
-Cont norvasc 10mg daily
-Hydralazine started and uptitrated to 50mg BID
DM-II
- Stable. Increase lantus dose to 14 units
- Follow glucose and cover with SSI as needed.
- Check A1C and 9.3.
Diarrhea / Constipation
- monitor for symptoms
- CT done in the ED this evening with no obstruction, marked constipation, etc.
- Repeat Abdomen xray with heavy stool burden. Enema with positive results.
DVT Prophylaxis: Subcut heparin
Code Status: Full
PT/OT-SNF on dc. Level II requirement will need to be looked into. CM looking for placement
Anticipated Discharge: 24 - 48 hours
Subjective/Interval History
-
Date of Service: December 01, 2024
Patient is sedated and difficult to wake up, does open eyes on physical stimuli
No reported issues overnight except episodes. Patient was bit agitated at times
Objective Data
-
Labs:
Laboratory Results
12/01/24
07:17
WBC 5.0
Hgb 9.8 L
Hct 30.8 L
Plt Count 212
Sodium 138
Potassium 5.0
Chloride 102
Carbon Dioxide 27
BUN 54 H
Creatinine 4.3 H*
Glucose 133 H
Calcium 8.2 L
Vital Signs:
Vital Signs
Temp Pulse Resp BP Pulse Ox
97.9 F 97 16 109/69 98
12/01/24 07:10 12/01/24 07:10 12/01/24 07:10 12/01/24 07:10 12/01/24 07:10
I&O
11/30/24 12/01/24 12/02/24
06:59 06:59 06:59
Intake Total 1200 / 1200 720 / 720 420 / 420
Output Total
Balance 1200 / 1200 720 / 720 419 / 419
Review of Systems
-
Respiratory: Reports No Symptoms
Cardiac: Reports No Symptoms
Abdomen/GI: Reports No Symptoms
Physical Exam
-
General: No Apparent Distress and Comfortable
HEENT: Negative Oxygen
Respiratory: Clear to Auscultation
Cardiac: Regular Rhythm and S1/S2; Negative Murmur or Rub
GI: Soft, Nontender and Nondistended
Musculoskeletal: No Edema
Neuro: No Motor Deficits and Nonfocal/Grossly Intact; Negative Oriented
Psych: Calm
[2024-12-01 15:05] VITALS: BP 120/65
[2024-12-01] MEDS: LASIX 40 MG IV (15:49)
[2024-12-01] MEDS: ZOFRAN 4 MG IV (15:51)
--- NOTE | 2024-12-01 16:29 | PTCARENOTE ---
patient aaox3, this am, confused at times and forgetful. ate breakfast sitting oob in chair. did cough while eating breakfast. after breakfast requested to go back to bed. at 1452, patient somnolent, difficult to wake up to verbal stimuli, but
awoke after tactile stimuli. ate a few bites of lunch and then c/o nausea. at [address] Checo Oneill and requested antiemetic PRN. Zofran ordered and administered (see new orders). patient asleep at present. vss, will continue to monitor.
[2024-12-01] MEDS: HEPARIN 5000 UNITS SC ×2 (17:39→23:11)
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
[2024-12-01] MEDS: LIPITOR 20 MG PO (21:16)
[2024-12-01 21:55] LABS: Glucose - Point of Care 133 mg/dl (70-99)
[2024-12-01] MEDS: LANTUS 0.14 UNITS SC (22:38)
[2024-12-01 23:00] VITALS: BP 117/55
[2024-12-02 06:00] VITALS: BMI 36.0
[2024-12-02 07:14] LABS: Hematocrit 29.5 % (37.0-47.0); Hemoglobin 9.3 g/dL (12.0-16.0); Mean Corp Hgb Conc. 31.5 g/dL (33.0-37.0); Mean Corpuscular Hgb 28.3 pg (27.0-31.0); Mean Corpuscular Volume 89.7 fL (81.0-99.0); Mean Platelet Volume 9.5 fL (7.4-10.4); Platelet Count 213 10^3/uL (130-400); Red Blood Cell Count 3.29 10^6/uL (4.20-5.40); Red Cell Dist. Width 14.3 % (11.5-14.5); White Blood Cell Count 5.6 10^3/uL (4.8-10.8)
[2024-12-02 07:18] VITALS: BP 100/44
[2024-12-02 07:23] LABS: Blood Urea Nitrogen 57 mg/dl (7-17); Calcium 8.1 mg/dl (8.4-10.2); Carbon Dioxide 29 mmol/L (22-30); Chloride 101 mmol/L (98-107); Estimated Creatinine Clearance 11 ml/min; Glucose 137 mg/dl (70-99); Potassium 5.4 mmol/L (3.5-5.1); Sodium 138 mmol/L (135-145); eGFR 10.31
[2024-12-02 07:32] LABS: Glucose - Point of Care 140 mg/dl (70-99)
[2024-12-02] MEDS: NOVOLOG FLEXPEN-LOW RESISTANCE SC (08:01)
[2024-12-02 08:27] LABS: % Basophils 0.5 % (0-2); % Eosinophils 2.5 % (0-6); % Immature Granulocytes 5.9 % (0-0.5); % Lymphocytes 13.2 % (20.5-51.1); % Monocytes 6.6 % (1.7-9.3); % Neutrophils 71.3 % (42.2-75.2); Absolute Eosinophils 0.1 10^3/uL (0-0.7); Absolute Immature Granulocytes 0.3 10^3/uL (0-0.05); Absolute Lymphocytes 0.7 10^3/uL (1.2-3.4); Absolute Monocytes 0.4 10^3/uL (0.1-0.6); Nucleated Red Blood Cells % 0 %
[2024-12-02] MEDS: ATIVAN 0.5 MG PO ×2 (09:40→21:20)
[2024-12-02] MEDS: APRESOLINE 50 MG PO ×2 (09:40→21:18)
[2024-12-02] MEDS: NORVASC 10 MG PO (09:40)
[2024-12-02] MEDS: LOW STRENGTH ASPIRIN 81 MG PO (09:40)
[2024-12-02] MEDS: HEPARIN 5000 UNITS SC ×3 (09:40→23:30)
[2024-12-02] MEDS: LASIX 40 MG PO (09:40)
[2024-12-02] MEDS: DEPAKOTE SPRINKLE 250 MG PO ×3 (09:40→21:15)
[2024-12-02] MEDS: VITAMIN B-12 1000 MCG PO (09:41)
[2024-12-02] MEDS: DESENEX/MITRAZOL/ZEASORB 1 APPLIC TOPICAL ×2 (09:41→21:16)
[2024-12-02] MEDS: LASIX IV (10:10)
--- NOTE | 2024-12-02 10:28 | W.PN.UPDATE ---
Update Note
Progress Note Update
Patient seen at bedside, chart reviewed, discussed with RN. No acute issues overnight. Patient awake, alert, oriented. Pleasant and cooperative. She does c/o GI upset today after eating. She did eat her full breakfast. No overt signs/symptoms of
ari or psychosis. Reports she slept well. No overt daytime sleepiness at this time. Denies any SI/SB, AH/VH.
Impression/Recommendation: Schizoaffective disorder, bipolar type - Seroquel has been discontinued and it appears daytime sedation resolved. Continue with Depakote, can recheck levels in a few days. If antipsychotic warranted, could consider
Abilify as an alternative to Invega. Will continue to monitor for now.
[2024-12-02 11:28] LABS: Glucose - Point of Care 181 mg/dl (70-99)
[2024-12-02] MEDS: NOVOLOG FLEXPEN-LOW RESISTANCE 1 UNITS SC ×2 (12:55→16:29)
--- NOTE | 2024-12-02 14:19 | W.PN.HOSP.TC ---
Today's Communication/Plan
-
switch to oral lasix
GOC discussion
Assessment / Plan
Assessment / Plan
Altered Mental Status
Schizoaffective disorder/Bipolar disorder
- Not clear what acute alteration there has been.
- Patient with chronic cognitive impairment and psychosis with recent history noting progression.
- No evidence of acute infectious process, etc to explain any new / acute decompensation.
- Continue current psychotropic med regimen. Ativan dose decreased to 0.5 milligram twice daily. Depakote dose adjusted to 250 mg 3 times daily from 125 mg twice daily. Seroquel dose increased to 100 mg nightly from 50 mg
- Depakote level WNL - 46 today
- Monitor for any changes while here.
- TSH normal
- Status post video swallow evaluation. Speech recommending regular diet.-Will continue with minced and moist for now.
- Pt was getting Invega Sustenna every month although unable to be provided due to creatinine clearance is close to 10 and is contraindicated.
ALBERTINA on CKD versus advancing CKD
Edema
Hyperkalemia
Patient diabetic nephropathy
- No recent labs available for comparison - send to [facility] for recent records. Still pending
- Seems likely that this is chronic.
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
- UA with 3+ albumin.
- Nephrology evaluation for additional recommendations.
- Follow labs /lytes for change.
- s/p IVF and IV albumin and lasix.
- Discussion with patient daughter on 11/25/2024 during patient hospitalization at [facility] patient was also found to have elevated creatinine.
- Patient with worsening renal function and potentially require hemodialysis support, not ideal candidate and nephrology has discussed this with patient family.
Nonischemic myocardial injury
-Patient heart rate currently stable
-Echocardiogram EF of 70 to 75%. Normal regional wall motion. Normal right ventricular size and function. Mild aortic stenosis.
-Last cardiac cath was 2008 with normal coronaries
-Cardiology signed off
Anemia - Likely due to CKD
- Hgb slightly decreased from prior baseline (again - compared to 2021 labs).
- Follow H&H for changes. start po b12. Trial of IV iron
Primary HTN
-Cont norvasc 10mg daily
-Hydralazine started and uptitrated to 50mg BID
DM-II
- Stable. Increase lantus dose to 14 units
- Follow glucose and cover with SSI as needed.
- Check A1C and 9.3.
Diarrhea / Constipation
- monitor for symptoms
- CT done in the ED this evening with no obstruction, marked constipation, etc.
- Repeat Abdomen xray with heavy stool burden. Enema with positive results.
DVT Prophylaxis: Subcut heparin
Code Status: Full
Discussed with patient brother that patient overall renal function is declining and has guarded prognosis. Brother wants patient daughter to be involved in discussion, I have requested brother to contact patient's daughter and have in person
discussion tomorrow.
Total time spent : 52 mins
Anticipated Discharge: > 48 hours
Subjective/Interval History
-
Date of Service: December 02, 2024
Patient somnolent although waking up on verbal cue
No reported acute issues overnight
Objective Data
-
Labs:
Laboratory Results
12/02/24
06:37
WBC 5.6
Hgb 9.3 L
Hct 29.5 L
Plt Count 213
Sodium 138
Potassium 5.4 H
Chloride 101
Carbon Dioxide 29
BUN 57 H
Creatinine 4.4 H*
Glucose 137 H
Calcium 8.1 L
Vital Signs:
Vital Signs
Temp Pulse Resp BP Pulse Ox
97.8 F 75 17 100/44 96
12/02/24 07:18 12/02/24 07:18 12/02/24 07:18 12/02/24 07:18 12/02/24 07:18
I&O
12/01/24 12/02/24 12/03/24
06:59 06:59 06:59
Intake Total 720 / 720 660 / 660
Output Total
Balance 720 / 720 659 / 659
Review of Systems
-
Unable to obtain full review of systems at this time due to: Acuity
Physical Exam
-
General: No Apparent Distress and Comfortable
HEENT: Negative Oxygen
Respiratory: Clear to Auscultation
Cardiac: Regular Rhythm and S1/S2; Negative Murmur or Rub
GI: Soft, Nontender and Nondistended
Musculoskeletal: No Edema
Neuro: No Motor Deficits and Nonfocal/Grossly Intact; Negative Oriented
Psych: Calm
--- NOTE | 2024-12-02 14:23 | W.PN.NEPH.PH ---
Today's Communication / Plan
-
lasix 40mg po daily to continue
follow bmp
Assessment/Plan
-
69y F with PMH significant for psychiatric disorder, DM-II, obesity and polyneuropathy who presents to ED from local [place] for evaluation of altered mental status.
renal consul for acute kidney injury.
Impression.
Acute or chronic kidney disease with a creatinine of 1.42 in 2021 no more recent labs and presents with a creatinine greater of 3.
Anemia without thrombocytopenia.
Altered mental status without signs of infection.
proteinuria in the setting of the diabetes with an [place]arco.
Hypertension.
Plan.
creatinine higher at 4.4, uop ? but weights down
known creatinine per record of 1.4 in 2021
likely DKD and possible has progressed
bp labile, holding ACEI
Lasix changed to oral route
follow BMP
Previous Long discussion with the brother Christo HUNT on phone regarding her renal dysfunction. He reports when she had 24hr care at home her health status was better controlled however due to insurance issues she had to be moved to a facility and
since then her diabetes became uncontrolled as patient no longer was following the restriction on the diet or exercise. her A1c was at 9.3 on admission, creatinine Continue to remain high and increased with the use of Lasix. However she is
significantly volume overloaded. Moving forward will needed diuretics however this may result in higher creatinine. Reviewed with the brother that she is at risk of dialysis in neat future. He understands and also feels that Melissa may not be able
to tolerate the dialysis. Which I completely agree with as her mental status/cognition will be a bigger barrier to safely do dialysis when she needs.
Apparently her mom was on dialysis too, brother understands the burden of dialysis and may not want his sister to go through this.
Patient's underlying psychiatric disorder prohibits dialysis as a feasible option given her behavioral issues
-
-
Date of Service: December 02, 2024
CC / HPI / ROS
-
Chief Complaint:
ALBERTINA
History of Present Illness:
ALBERTINA/Cr higher at 4.4
nephrotic range proteinuria
hgb low 9.3 stable
Blood pressure labile
Review of Systems:
No chest pain
c/o sob
sleeping during visit
wt down
Labs
-
Labs:
WBC 5.6 10^3/uL (4.8-10.8) 12/02/24 06:37
RBC 3.29 10^6/uL (4.20-5.40) L 12/02/24 06:37
Hgb 9.3 g/dL (12.0-16.0) L 12/02/24 06:37
Hct 29.5 % (37.0-47.0) L 12/02/24 06:37
Plt Count 213 10^3/uL (130-400) 12/02/24 06:37
Sodium 138 mmol/L (135-145) 12/02/24 06:37
Potassium 5.4 mmol/L (3.5-5.1) H 12/02/24 06:37
Chloride 101 mmol/L (98-107) 12/02/24 06:37
Carbon Dioxide 29 mmol/L (22-30) 12/02/24 06:37
BUN 57 mg/dl (7-17) H 12/02/24 06:37
Creatinine 4.4 mg/dL (0.6-1.0) H* 12/02/24 06:37
eGFR 10.31 12/02/24 06:37
Glucose 137 mg/dl (70-99) H 12/02/24 06:37
Calcium 8.1 mg/dl (8.4-10.2) L 12/02/24 06:37
Phosphorus 4.7 mg/dl (2.5-4.5) H 11/25/24 05:25
Bwo-R-Bzadnkmdkwe Pept 822 pg/ml 11/24/24 16:55
Albumin 3.3 g/dl (3.5-5.0) L 11/26/24 05:07
Physical Exam
-
Vital Signs:
Vital Signs
Temp Pulse Resp BP Pulse Ox
97.8 F 75 17 100/44 96
12/02/24 07:18 12/02/24 07:18 12/02/24 07:18 12/02/24 07:18 12/02/24 07:18
Cardiovascular:: Regular rate and rhythm
Respiratory:: Bilateral: Coarse
Lung Excursion:: Abnormal
Abdomen:: Distended, Nontender and Soft
Extremity Edema:: +2: Bilateral:
Moran Catheter: No
[2024-12-02 14:57] VITALS: BP 121/69
[2024-12-02 16:28] LABS: Glucose - Point of Care 169 mg/dl (70-99)
[2024-12-02] MEDS: LIPITOR 20 MG PO (21:15)
[2024-12-02 21:27] LABS: Glucose - Point of Care 184 mg/dl (70-99)
[2024-12-02] MEDS: LANTUS 0.14 UNITS SC (21:28)
[2024-12-02] MEDS: TYLENOL 650 MG PO (22:56)
[2024-12-02 23:00] VITALS: BP 139/54
[2024-12-03 07:20] VITALS: BP 126/61
[2024-12-03 07:38] LABS: Glucose - Point of Care 99 mg/dl (70-99)
[2024-12-03] MEDS: NOVOLOG FLEXPEN-LOW RESISTANCE SC ×2 (08:01→11:46)
[2024-12-03 08:02] LABS: Blood Urea Nitrogen 66 mg/dl (7-17); Calcium 8.3 mg/dl (8.4-10.2); Carbon Dioxide 30 mmol/L (22-30); Chloride 99 mmol/L (98-107); Estimated Creatinine Clearance 11 ml/min; Glucose 90 mg/dl (70-99); Potassium 5.1 mmol/L (3.5-5.1); Sodium 136 mmol/L (135-145); eGFR 10.59
[2024-12-03] MEDS: HEPARIN 5000 UNITS SC ×3 (08:56→23:29)
[2024-12-03] MEDS: LASIX 40 MG PO (08:56)
[2024-12-03] MEDS: LOW STRENGTH ASPIRIN 81 MG PO (08:56)
[2024-12-03] MEDS: VITAMIN B-12 1000 MCG PO (08:56)
[2024-12-03] MEDS: NORVASC 10 MG PO (08:56)
[2024-12-03] MEDS: APRESOLINE 50 MG PO ×2 (08:56→21:06)
[2024-12-03] MEDS: ATIVAN 0.5 MG PO ×2 (08:56→21:04)
[2024-12-03] MEDS: DEPAKOTE SPRINKLE 250 MG PO ×3 (08:56→21:12)
[2024-12-03] MEDS: DESENEX/MITRAZOL/ZEASORB 1 APPLIC TOPICAL ×2 (08:57→21:06)
[2024-12-03 09:08] LABS: Glucose - Point of Care 91 mg/dl (70-99)
[2024-12-03 11:37] LABS: Glucose - Point of Care 99 mg/dl (70-99)
[2024-12-03] MEDS: TYLENOL 650 MG PO ×2 (13:23→21:02)
--- NOTE | 2024-12-03 13:42 | W.PN.HOSP.TC ---
Addendum entered and electronically signed by Checo Oneill MD 12/03/24 16:18:
Goal of care discussion done with patient brother and daughter at bedside.
Discussed at length that patient have worsening renal failure and despite maximal medical therapy patient renal status remains precarious. Patient creatinine has stabilized at a higher number of 4-4.5 range, fortunately no problematic sign of
volume overload/uremia/hyperkalemia developing yet and thus have some time to monitor.
Discussed at length the complexity and health burden of patient being put on dialysis. Shared with her behavioral/psychiatric issues will be definitely an extremely difficult patient to manage and complicate her care furthermore. Both brother and
daughter understands this and hopeful that kidney function will stabilize and patient will be able to transfer to be SNF. I have clarified that this may not happen and patient may continue to deteriorate, brother/daughter both understand this
although they are not verbalizing any agreement for hospice care and would like to see how things automatic glove turner and former.
Question of psychiatric medication causing further renal deterioration discussed and psychiatry have addressed this earlier with patient family.
Patient family requested a agricultural produce commission agent service which does not offer. I have provided a physical prescription for family to have third-green party/private agricultural produce commission agent to be visiting patient while in the hospital.
Extra time spent : 25 mins
Original Note:
Today's Communication/Plan
-
f/u renal function
GOC discussion
Assessment / Plan
Assessment / Plan
Toxic metabolic encephalopathy - improved
Schizoaffective disorder/Bipolar disorder
- Not clear what acute alteration there has been.
- Patient with chronic cognitive impairment and psychosis with recent history noting progression.
- No evidence of acute infectious process, etc to explain any new / acute decompensation.
- Continue current psychotropic med regimen. Ativan dose decreased to 0.5 milligram twice daily. Depakote dose adjusted to 250 mg 3 times daily from 125 mg twice daily. Seroquel dose increased to 100 mg nightly from 50 mg
- Depakote level WNL - 46 today
- Monitor for any changes while here.
- TSH normal
- Status post video swallow evaluation. Speech recommending regular diet.-Will continue with minced and moist for now.
- Pt was getting Invega Sustenna every month although unable to be provided due to creatinine clearance is close to 10 and is contraindicated.
ALBERTINA on CKD versus advancing CKD
Edema
Hyperkalemia
Patient diabetic nephropathy
- No recent labs available for comparison - send to [facility] for recent records. Still pending
- Seems likely that this is chronic.
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
- UA with 3+ albumin.
- Nephrology evaluation for additional recommendations.
- Follow labs /lytes for change.
- s/p IVF and IV albumin and lasix.
- Discussion with patient daughter on 11/25/2024 during patient hospitalization at [facility] patient was also found to have elevated creatinine.
- Patient with worsening renal function and potentially require hemodialysis support, not ideal candidate and nephrology has discussed this with patient family.
Nonischemic myocardial injury
-Patient heart rate currently stable
-Echocardiogram EF of 70 to 75%. Normal regional wall motion. Normal right ventricular size and function. Mild aortic stenosis.
-Last cardiac cath was 2008 with normal coronaries
-Cardiology signed off
Anemia - Likely due to CKD
- Hgb slightly decreased from prior baseline (again - compared to 2021 labs).
- Follow H&H for changes. start po b12. Trial of IV iron
Primary HTN
-Cont norvasc 10mg daily
-Hydralazine started and uptitrated to 50mg BID
DM-II
- Stable. Increase lantus dose to 14 units
- Follow glucose and cover with SSI as needed.
- Check A1C and 9.3.
Diarrhea / Constipation
- monitor for symptoms
- CT done in the ED this evening with no obstruction, marked constipation, etc.
- Repeat Abdomen xray with heavy stool burden. Enema with positive results.
DVT Prophylaxis: Subcut heparin
Code Status: Full
Family planning to visit today, will have discussion regarding dialysis/goal of care.
Anticipated Discharge: 24 - 48 hours
Subjective/Interval History
-
Date of Service: December 03, 2024
Patient is awake and communicative today
Having lunch during visit, not voicing any issues
Objective Data
-
Labs:
Laboratory Results
12/03/24
07:21
Sodium 136
Potassium 5.1
Chloride 99
Carbon Dioxide 30
BUN 66 H
Creatinine 4.3 H*
Glucose 90
Calcium 8.3 L
Vital Signs:
Vital Signs
Temp Pulse Resp BP Pulse Ox
97.8 F 68 17 126/61 95
12/03/24 07:20 12/03/24 07:20 12/03/24 07:20 12/03/24 07:20 12/03/24 07:20
I&O
12/02/24 12/03/24 12/04/24
06:59 06:59 06:59
Intake Total 660 / 660 1290 / 1290
Output Total
Balance 659 / 659 1290 / 1290
Review of Systems
-
Respiratory: Reports No Symptoms
Cardiac: Reports No Symptoms
Abdomen/GI: Reports No Symptoms
Physical Exam
-
General: No Apparent Distress and Comfortable
HEENT: Negative Oxygen
Respiratory: Clear to Auscultation
Cardiac: Regular Rhythm and S1/S2; Negative Murmur or Rub
GI: Soft, Nontender and Nondistended
Musculoskeletal: No Edema
Neuro: Awake, Alert, Oriented, No Motor Deficits and Nonfocal/Grossly Intact
Psych: Calm
--- NOTE | 2024-12-03 13:57 | W.PN.UPDATE ---
Addendum entered and electronically signed by Allison Alcala MD 12/03/24 16:30:
spoke to brother. he okays use of abilify to start with 2 mg. there is an injectable version which they could presumably move to if abilify is effective and well tolerated.
Original Note:
Update Note
Progress Note Update
patient seen chart reviewed. discussed with nursing. constipation seems to be better but at this point she is struggling with continence. she is refusing to wear a diaper. she is also stating she is very uncomfortable in the bed and wants to
leave. i told her family is visiting later today and hopefully we can discuss disposition. patient is actually pretty with it. oriented x3. i don't see any acute psychosis. she had been sedated and dc of seroquel has helped with that. depakote
level is in the 40's. there has been discussion of starting abilify to chavarria off return of psychosis. i discussed w patient. also called brother who is poa to discuss. left message. her renal failure is not better in fact seems to be worsening.
cr now over 4. brother had expressed that he would take 'responsibility ' for renal damage with invega in order to restart but i am not willing to do this. i would be worried about tipping her over into needing dialysis which could still come to
pass. will try later this afternoon to talk to brother. no changes made at this point in her medications.
[2024-12-03 15:00] VITALS: BP 138/81
--- NOTE | 2024-12-03 16:00 | PTCARENOTE ---
Rec'd pt from previous nurse. Pt with discomfort to abdomen, full, distended, firm, round, obese, incontinent of multiple small bowel movements and small soft bowel movements in commode as well. pt is impulsive, forgetful, does not ring chanel. bed
alarm in place. unable to redirect pt. pt call mueller is within reach, will cont to monitor. emotional support and active listening provided.
[2024-12-03 16:21] LABS: Glucose - Point of Care 165 mg/dl (70-99)
--- NOTE | 2024-12-03 17:09 | CM ---
Per [employer] [place] can take patient. Will confirm with admissions.
Plan: Case management will continue to follow and assist with discharge planning. SNF upon medical clearance and bed availability.
[2024-12-03] MEDS: NOVOLOG FLEXPEN-LOW RESISTANCE 1 UNITS SC (17:13)
--- NOTE | 2024-12-03 17:49 | W.PN.NEPH.PH ---
Today's Communication / Plan
-
follow lab s
Assessment/Plan
-
69y F with PMH significant for psychiatric disorder, DM-II, obesity and polyneuropathy who [place] [facility] [place] for evaluation of altered mental status.
renal consul for acute kidney injury.
Impression.
Acute or chronic kidney disease with a creatinine of 1.42 in 2021 no more recent labs and presents with a creatinine greater of 3.
Anemia without thrombocytopenia.
Altered mental status without signs of infection.
proteinuria in the setting of the diabetes with an [place]ar[place].
Hypertension.
Plan.
creatinine no change at 4.3, uop ? but weights were down
known creatinine per family in 3 range at [facility] recently
likely DKD and possible has progressed
bp labile, holding ACEI
Lasix cont oral route, edema is much better
follow BMP
No emergent need of dialysis
HIgh risk encounter
Long discussion with the family today at bedside including the brother and the daughter. They're more concerned that her behavioral issues likely are new and this is not her baseline and they expect to see improvement with the adjustment of the
medication by psychiatric. They are hopeful that the renal function will stabilize, they're not very sure if they will agree with the dialysis. They want to check with the patient first, knowing her behavior family thinks she may not agree. We
also reviewed the fact that with emotional outbursts it will be difficult to maintain on dialysis. Family understands that and I think they wanted to give her a chance to make the call.
-
-
Date of Service: December 03, 2024
CC / HPI / ROS
-
Chief Complaint:
ALBERTINA
History of Present Illness:
ALBERTINA/Cr higher at 4.3
nephrotic range proteinuria
hgb low 9.3 stable
Blood pressure labile
Review of Systems:
No chest pain
c/o sob
sleeping during visit
no wts today
likely constipated
Labs
-
Labs:
WBC 5.6 10^3/uL (4.8-10.8) 12/02/24 06:37
RBC 3.29 10^6/uL (4.20-5.40) L 12/02/24 06:37
Hgb 9.3 g/dL (12.0-16.0) L 12/02/24 06:37
Hct 29.5 % (37.0-47.0) L 12/02/24 06:37
Plt Count 213 10^3/uL (130-400) 12/02/24 06:37
Sodium 136 mmol/L (135-145) 12/03/24 07:21
Potassium 5.1 mmol/L (3.5-5.1) 12/03/24 07:21
Chloride 99 mmol/L (98-107) 12/03/24 07:21
Carbon Dioxide 30 mmol/L (22-30) 12/03/24 07:21
BUN 66 mg/dl (7-17) H 12/03/24 07:21
Creatinine 4.3 mg/dL (0.6-1.0) H* 12/03/24 07:21
eGFR 10.59 12/03/24 07:21
Glucose 90 mg/dl (70-99) 12/03/24 07:21
Calcium 8.3 mg/dl (8.4-10.2) L 12/03/24 07:21
Phosphorus 4.7 mg/dl (2.5-4.5) H 11/25/24 05:25
Byi-C-Jftifzbllqs Pept 822 pg/ml 11/24/24 16:55
Albumin 3.3 g/dl (3.5-5.0) L 11/26/24 05:07
Physical Exam
-
Vital Signs:
Vital Signs
Temp Pulse Resp BP Pulse Ox
97.7 F 87 19 138/81 97
12/03/24 15:00 12/03/24 15:00 12/03/24 15:00 12/03/24 15:00 12/03/24 15:00
Cardiovascular:: Regular rate and rhythm
Respiratory:: Bilateral: Coarse
Lung Excursion:: Abnormal
Abdomen:: Distended, Nontender and Soft
Extremity Edema:: None: Bilateral: (trace)
Moran Catheter: No
[2024-12-03] MEDS: ABILIFY 2 MG PO (21:03)
[2024-12-03] MEDS: LIPITOR 20 MG PO (21:04)
[2024-12-03 21:44] LABS: Glucose - Point of Care 133 mg/dl (70-99)
[2024-12-03 23:00] VITALS: BP 141/73
[2024-12-03] MEDS: LANTUS 0.14 UNITS SC (23:20)
[2024-12-03 23:28] LABS: Glucose - Point of Care 130 mg/dl (70-99)
[2024-12-04] MEDS: MELATONIN 3 MG PO (00:43)
--- NOTE | 2024-12-04 01:14 | PTCARENOTE ---
Pt assessed as per flow sheet. Pt displays attention seeking behaviors including yelling out frequently and getting oob or chair frequently to set off call alarms. Pt stated she had abdominal pain and pointed to groin. Discussed with EMS DIRECTOR emd special education teacher.
Tylenol given as ordered with no effect. Reached out to EMS DIRECTOR again as pt continued to yell out c/o abd pains but then also c/o back and hand pain. Received order for melatonin and given. Pt was reeducated emd special education teacher mueller use, safety measures and
procedures as well as appropriateness by numerous staff members, numerous times. Verbal contracts were made with the pt as a behavior modification measure. No s/s of distress assessed. Pt now sleeping. Will continue to monitor.
--- NOTE | 2024-12-04 04:35 | PTCARENOTE ---
Pt slept for approximately 2hrs. Continues to be extremely impulsive getting oob. Pt is unsteady on her feet and was incontinent on the floor. Pt then stated to Meka Wayne RN that she 'can't see.' Pt was reactive to stimuli near eyes and looking
directly at staff. Pt continued to express abd discomfort but then asked for food and drink. When told staff was reticent to give anything PO pt then stated she didn't have abd pains. Then stated she does have abd pains and wanted to eat. Pt then
stated she could see but her eyes are 'scratchy'. Will address with the covering SLOT OPERATIONS DIRECTOR. No s/s of distress assessed.
[2024-12-04] MEDS: ATIVAN 0.5 MG PO ×4 (05:30→21:43)
[2024-12-04 06:00] VITALS: BMI 36.6
[2024-12-04 06:16] LABS: Hematocrit 29.8 % (37.0-47.0); Hemoglobin 9.7 g/dL (12.0-16.0); Mean Corp Hgb Conc. 32.6 g/dL (33.0-37.0); Mean Corpuscular Hgb 28.4 pg (27.0-31.0); Mean Corpuscular Volume 87.1 fL (81.0-99.0); Mean Platelet Volume 9.6 fL (7.4-10.4); Platelet Count 219 10^3/uL (130-400); Red Blood Cell Count 3.42 10^6/uL (4.20-5.40); Red Cell Dist. Width 14.3 % (11.5-14.5); White Blood Cell Count 6.7 10^3/uL (4.8-10.8)
[2024-12-04 06:55] LABS: Blood Urea Nitrogen 69 mg/dl (7-17); Calcium 8.9 mg/dl (8.4-10.2); Carbon Dioxide 29 mmol/L (22-30); Chloride 98 mmol/L (98-107); Estimated Creatinine Clearance 11 ml/min; Glucose 139 mg/dl (70-99); Potassium 4.7 mmol/L (3.5-5.1); Sodium 137 mmol/L (135-145); eGFR 10.31
[2024-12-04 07:00] VITALS: BP 137/97
[2024-12-04 07:48] LABS: Glucose - Point of Care 133 mg/dl (70-99)
[2024-12-04] MEDS: NOVOLOG FLEXPEN-LOW RESISTANCE SC (08:08)
[2024-12-04] MEDS: APRESOLINE 50 MG PO ×2 (08:18→21:42)
[2024-12-04] MEDS: NORVASC 10 MG PO (08:18)
[2024-12-04] MEDS: LASIX 40 MG PO (08:18)
[2024-12-04] MEDS: DEPAKOTE SPRINKLE 250 MG PO ×3 (08:19→21:44)
[2024-12-04] MEDS: LOW STRENGTH ASPIRIN 81 MG PO (08:19)
[2024-12-04] MEDS: VITAMIN B-12 1000 MCG PO (08:19)
[2024-12-04] MEDS: HEPARIN 5000 UNITS SC ×3 (08:19→23:29)
[2024-12-04] MEDS: DESENEX/MITRAZOL/ZEASORB 1 APPLIC TOPICAL ×2 (08:19→21:43)
[2024-12-04 11:38] LABS: Glucose - Point of Care 210 mg/dl (70-99)
--- NOTE | 2024-12-04 11:38 | W.PN.UPDATE ---
Update Note
Progress Note Update
patient seen chart reviewed. discussed with nursing and with aides. the patient told me she was in pain but when i tried to ask her about pain she fell off to sleep and i could not get her to respond. she did tell me she saw her family yesterday and
enjoyed the visit. discussed with dr dejesus medication issues which both of us discussed w her family. (family is considering getting her a private aide for six hours daily while she is here). nursing feels patient is very anxious. she apparently
prior to my seeing her was agitated calling out and getting up many times which of course puts her at risk for falling. have started abilify 2 mg. will add one more dose of ativan bid to tid. will follow
--- NOTE | 2024-12-04 12:11 | PN.CDI ---
CDI
- -
CDI:
Physician Documentation Request
Admit Date: 11/25/24 01:44
Dear Doctor Nino,
Hospitalist progress notes include a diagnosis of Nephrotic syndrome 11/25-11/27 but not in subsequent documentation.
Please clarify the following:
____ - Nephrotic syndrome was present on admission
____ - Nephrotic syndrome was ruled out
____ - Other
Use of terms such as suspected, likely, concern for, or probable (associated with a specific diagnosis that is being evaluated, monitored, or treated as if it exists) are acceptable and can be coded in the inpatient setting, when documented at the
time of discharge.
Thank you,
Nathalie Luna RN, BSN
CDI Specialist
tiger text
Please use your independent medical judgment in providing your response.
[2024-12-04] MEDS: NOVOLOG FLEXPEN-LOW RESISTANCE 2 UNITS SC (12:35)
--- NOTE | 2024-12-04 12:42 | W.PN.NEPH.PH ---
Today's Communication / Plan
-
cont lasix and follow labs
Assessment/Plan
-
69y F with PMH significant for psychiatric disorder, DM-II, obesity and polyneuropathy who presents to ED from [place] for evaluation of altered mental status.
renal consul for acute kidney injury.
Impression.
Acute or chronic kidney disease with a creatinine of 1.42 in 2021 no more recent labs and presents with a creatinine greater of 3.
Anemia without thrombocytopenia.
Altered mental status without signs of infection.
proteinuria in the setting of the diabetes with an [place]arco.
Hypertension.
Plan.
creatinine no change at 4.4, uop ? wt is up?
known creatinine per family in 3 range at [facility] recently
likely DKD and possible has progressed
bp labile, holding ACEI
Lasix cont oral route, edema is much better
follow BMP
No emergent need of dialysis
On 12/03 Dr Curiel had Long discussion with the family including the brother and the daughter. They're more concerned that her behavioral issues likely are new and this is not her baseline and they expect to see improvement with the adjustment of
the medication by psychiatric. They are hopeful that the renal function will stabilize, they're not very sure if they will agree with the dialysis but want to check with the patient first, knowing her behavior family thinks she may not agree. We
also reviewed the fact that with emotional outbursts it will be difficult to maintain on dialysis. Family understands that and I think they wanted to give her a chance to make the call.
-
-
Date of Service: December 04, 2024
CC / HPI / ROS
-
Chief Complaint:
ALBERTINA
History of Present Illness:
ALBERTINA/Cr higher at 4.4
nephrotic range proteinuria
hgb low 9.7 stable
Blood pressure labile
Review of Systems:
sleeping during visit
wt is p not sure if accurate
Labs
-
Labs:
WBC 6.7 10^3/uL (4.8-10.8) 12/04/24 05:48
RBC 3.42 10^6/uL (4.20-5.40) L 12/04/24 05:48
Hgb 9.7 g/dL (12.0-16.0) L 12/04/24 05:48
Hct 29.8 % (37.0-47.0) L 12/04/24 05:48
Plt Count 219 10^3/uL (130-400) 12/04/24 05:48
Sodium 137 mmol/L (135-145) 12/04/24 05:48
Potassium 4.7 mmol/L (3.5-5.1) 12/04/24 05:48
Chloride 98 mmol/L (98-107) 12/04/24 05:48
Carbon Dioxide 29 mmol/L (22-30) 12/04/24 05:48
BUN 69 mg/dl (7-17) H 12/04/24 05:48
Creatinine 4.4 mg/dL (0.6-1.0) H* 12/04/24 05:48
eGFR 10.31 12/04/24 05:48
Glucose 139 mg/dl (70-99) H 12/04/24 05:48
Calcium 8.9 mg/dl (8.4-10.2) 12/04/24 05:48
Phosphorus 4.7 mg/dl (2.5-4.5) H 11/25/24 05:25
Yjw-M-Cmicipqglwa Pept 822 pg/ml 11/24/24 16:55
Albumin 3.3 g/dl (3.5-5.0) L 11/26/24 05:07
Physical Exam
-
Vital Signs:
Vital Signs
Temp Pulse Resp BP Pulse Ox
97.8 F 89 17 137/97 95
12/04/24 07:00 12/04/24 07:00 12/04/24 07:00 12/04/24 07:00 12/04/24 07:00
Cardiovascular:: Regular rate and rhythm
Respiratory:: Bilateral: Coarse
Lung Excursion:: Abnormal
Abdomen:: Distended, Nontender and Soft
Extremity Edema:: None: Bilateral: (trace)
Moran Catheter: No
--- NOTE | 2024-12-04 12:43 | W.PN.HOSP.TC ---
Today's Communication/Plan
-
monitor renal function
psych med being adjusted by psychiatry
continue oral lasix 40mg/d
Assessment / Plan
Assessment / Plan
Toxic metabolic encephalopathy - improved
Schizoaffective disorder/Bipolar disorder
- Not clear what acute alteration there has been.
- Patient with chronic cognitive impairment and psychosis with recent history noting progression.
- No evidence of acute infectious process, etc to explain any new / acute decompensation.
- Depakote level WNL - 46
- TSH normal
- Status post video swallow evaluation. Speech recommending regular diet. on IDDSI 5 diet
- Pt was getting Invega Sustenna every month although unable to be provided due to creatinine clearance is close to 10 and is contraindicated.
- Currently on regimen of Abilify 2 mg at bedtime/Depakote 250 3 times daily/Ativan 0.5 mg 3 times daily
ALBERTINA on CKD versus advancing CKD
Edema
Hyperkalemia
Diabetic nephropathy and proteinuria - non nephrotic range
- No recent labs available for comparison - send to [facility] for recent records. Still pending
- Seems likely that this is chronic.
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
- UA with 3+ albumin.
- s/p IVF and IV albumin. currently on oral lasix 40mg/d
- Discussion with patient daughter on 11/25/2024 during patient hospitalization at [facility] patient was also found to have elevated creatinine.
- Patient with worsening renal function and potentially require hemodialysis support, not ideal candidate and nephrology has discussed this with patient family.
Nonischemic myocardial injury
- Patient heart rate currently stable
- Echocardiogram EF of 70 to 75%. Normal regional wall motion. Normal right ventricular size and function. Mild aortic stenosis.
- Last cardiac cath was 2008 with normal coronaries
- Cardiology signed off
Anemia - Likely due to CKD
- Hgb slightly decreased from prior baseline (again - compared to 2021 labs).
- Follow H&H for changes. start po b12. Trial of IV iron
Primary HTN
- controlled on regimen of norvasc/hydralazine
DM-II
- Stable. Increase lantus dose to 14 units
- Follow glucose and cover with SSI as needed.
- Check A1C and 9.3.
Diarrhea / Constipation
- monitor for symptoms
- CT done in the ED this evening with no obstruction, marked constipation, etc.
- Repeat Abdomen xray with heavy stool burden. Enema with positive results.
DVT Prophylaxis: Subcut heparin
Code Status: Full
2/
Goal of care discussion done with patient brother and daughter at bedside.
Discussed at length that patient have worsening renal failure and despite maximal medical therapy patient renal status remains precarious. Patient creatinine has stabilized at a higher number of 4-4.5 range, fortunately no problematic sign of
volume overload/uremia/hyperkalemia developing yet and thus have some time to monitor.
Discussed at length the complexity and health burden of patient being put on dialysis. Shared with her behavioral/psychiatric issues will be definitely an extremely difficult patient to manage and complicate her care furthermore. Both brother and
daughter understands this and hopeful that kidney function will stabilize and patient will be able to transfer to be SNF. I have clarified that this may not happen and patient may continue to deteriorate, brother/daughter both understand this
although they are not verbalizing any agreement for hospice care and would like to see how things steel turner.
Question of psychiatric medication causing further renal deterioration discussed and psychiatry have addressed this earlier with patient family.
Patient family requested a customer development manager service which does not offer. I have provided a physical prescription for family to have third-democrat/private customer development manager to be visiting patient while in the hospital.
Anticipated Discharge: > 48 hours
Subjective/Interval History
-
Date of Service: December 04, 2024
Patient complaining some diffuse abdominal discomfort
No nausea or vomiting
No other reported acute events
Objective Data
-
Labs:
Laboratory Results
12/04/24
05:48
WBC 6.7
Hgb 9.7 L
Hct 29.8 L
Plt Count 219
Sodium 137
Potassium 4.7
Chloride 98
Carbon Dioxide 29
BUN 69 H
Creatinine 4.4 H*
Glucose 139 H
Calcium 8.9
Vital Signs:
Vital Signs
Temp Pulse Resp BP Pulse Ox
97.8 F 89 17 137/97 95
12/04/24 07:00 12/04/24 07:00 12/04/24 07:00 12/04/24 07:00 12/04/24 07:00
I&O
12/03/24 12/04/24 12/05/24
06:59 06:59 06:59
Intake Total 1290 / 1290 1500 / 1500
Balance 1290 / 1290 1500 / 1500
Review of Systems
-
Respiratory: Reports No Symptoms
Cardiac: Reports No Symptoms
Abdomen/GI: Reports Abdominal Pain; Denies Nausea or Vomiting
Physical Exam
-
General: No Apparent Distress and Comfortable
HEENT: Negative Oxygen
Respiratory: Clear to Auscultation
Cardiac: Regular Rhythm and S1/S2; Negative Murmur or Rub
GI: Soft, Nontender and Nondistended
Musculoskeletal: No Edema
Neuro: Awake, Alert, Oriented, No Motor Deficits and Nonfocal/Grossly Intact
Psych: Calm
[2024-12-04 15:00] VITALS: BP 121/98
[2024-12-04] MEDS: NOVOLOG FLEXPEN-LOW RESISTANCE 1 UNITS SC (16:56)
[2024-12-04 16:58] LABS: Glucose - Point of Care 154 mg/dl (70-99)
[2024-12-04 21:40] VITALS: BP 157/76
[2024-12-04] MEDS: LIPITOR 20 MG PO (21:43)
[2024-12-04] MEDS: ABILIFY 2 MG PO (21:44)
[2024-12-04 21:46] LABS: Glucose - Point of Care 189 mg/dl (70-99)
[2024-12-04] MEDS: LANTUS 0.14 UNITS SC (21:46)
--- NOTE | 2024-12-04 22:12 | PTCARENOTE ---
Patient getting OOB frequently since beginning of shift. Day shift RN reported to this RN that patient was refused a 1:1 sitter. Patient placed in chair at nurse's station. Patient continues attempting to get up and shouting at nurse's station. WIRE COILER
Eli notified and luis alfredo chair ordered. Patient placed in luis alfredo chair at nurse's station. Care ongoing.
[2024-12-04] MEDS: TYLENOL 650 MG PO (22:16)
[2024-12-04 23:30] VITALS: BP 156/76
[2024-12-05 06:00] VITALS: BMI 36.8
[2024-12-05 06:32] LABS: Depakane 63.3 ug/ml (50.0-120.0)
[2024-12-05 06:46] LABS: Blood Urea Nitrogen 74 mg/dl (7-17); Calcium 8.7 mg/dl (8.4-10.2); Carbon Dioxide 29 mmol/L (22-30); Chloride 99 mmol/L (98-107); Estimated Creatinine Clearance 12 ml/min; Glucose 143 mg/dl (70-99); Potassium 4.3 mmol/L (3.5-5.1); Sodium 137 mmol/L (135-145); eGFR 11.55
[2024-12-05 07:44] LABS: Glucose - Point of Care 133 mg/dl (70-99)
[2024-12-05 07:54] VITALS: BP 157/67
[2024-12-05] MEDS: NOVOLOG FLEXPEN-LOW RESISTANCE SC ×2 (07:57→16:51)
[2024-12-05] MEDS: DEPAKOTE SPRINKLE 250 MG PO ×3 (08:05→21:14)
[2024-12-05] MEDS: LOW STRENGTH ASPIRIN 81 MG PO (08:06)
[2024-12-05] MEDS: ATIVAN 0.5 MG PO ×3 (08:06→21:16)
[2024-12-05] MEDS: LASIX 40 MG PO (08:06)
[2024-12-05] MEDS: VITAMIN B-12 1000 MCG PO (08:06)
[2024-12-05] MEDS: HEPARIN 5000 UNITS SC ×2 (08:06→15:11)
[2024-12-05] MEDS: APRESOLINE 50 MG PO ×2 (08:06→20:31)
[2024-12-05] MEDS: NORVASC 10 MG PO (08:06)
[2024-12-05] MEDS: DESENEX/MITRAZOL/ZEASORB 1 APPLIC TOPICAL ×2 (08:08→20:32)
--- NOTE | 2024-12-05 08:19 | PN.CDI ---
CDI
- -
CDI:
Physician Documentation Request
Admit Date: 11/25/24 01:44
Dear Doctor Nino,
Hospitalist progress notes state 'ALBERTINA on CKD versus advancing CKD'
eGFR results:
Laboratory Tests
11/24/24 11/25/24 11/27/24
16:55 05:25 05:01
eGFR 15.69 16.32 17.73
11/28/24 11/29/24 11/30/24
05:07 06:19 06:58
eGFR 15.69 13.56 14.04
12/01/24 12/02/24 12/03/24
07:17 06:37 07:21
eGFR 10.59 10.31 10.59
12/04/24 12/05/24
05:48 05:58
eGFR 10.31 11.55
Please clarify which of the following accurately represents the stage of CKD:
Stages of Chronic Kidney Disease*
Level Description GFR
G1 Normal or High >90
G2 Mildly decreased 60-89
G3a Mildly to moderately decreased 45-59
G3b Moderately to severely decreased 30-44
G4 Severely decreased 15-29
G5 Kidney failure <15
OTHER
Use of terms such as suspected, likely, concern for, or probable (associated with a specific diagnosis that is being evaluated, monitored, or treated as if it exists) are acceptable and can be coded in the inpatient setting, when documented at the
time of discharge.
Thank you,
Nathalie Luna RN, BSN
CDI Specialist
tiger text
Please use your independent medical judgment in providing your response.
*Source: Kidney Disease: Improving Global Outcomes (KDIGO) 2012
--- NOTE | 2024-12-05 09:44 | W.PN.NEPH.PH ---
Today's Communication / Plan
-
Observe on Lasix
Assessment/Plan
-
69y F with PMH significant for psychiatric disorder, DM-II, obesity and polyneuropathy who presents to ED from local [place] for evaluation of altered mental status.
renal consul for acute kidney injury.
Impression.
Acute or chronic kidney disease with a creatinine of 1.42 in 2021 no more recent labs and presents with a creatinine greater of 3.
Anemia without thrombocytopenia.
Altered mental status without signs of infection.
proteinuria in the setting of the diabetes with an Asarco.
Hypertension.
Plan.
creatinine no change at 4.0 weight up urine output not recorded
known creatinine per family in 3 range at [facility] recently
likely DKD and possible has progressed
bp labile, holding ACEI
Lasix cont oral route, edema is much better
follow BMP
No emergent need of dialysis
On 12/03 Dr Curiel had Long discussion with the family including the brother and the daughter. They're more concerned that her behavioral issues likely are new and this is not her baseline and they expect to see improvement with the adjustment of
the medication by psychiatric. They are hopeful that the renal function will stabilize, they're not very sure if they will agree with the dialysis but want to check with the patient first, knowing her behavior family thinks she may not agree. We
also reviewed the fact that with emotional outbursts it will be difficult to maintain on dialysis. Family understands that and I think they wanted to give her a chance to make the call.
-
-
Date of Service: December 05, 2024
CC / HPI / ROS
-
Chief Complaint:
ALBERTINA
History of Present Illness:
ALBERTINA/Cr higher at 4
nephrotic range proteinuria
hgb low 9.7 stable
Hemodynamically stable
Review of Systems:
sleeping during visit
Weight up
Output not record
Labs
-
Labs:
WBC 6.7 10^3/uL (4.8-10.8) 12/04/24 05:48
RBC 3.42 10^6/uL (4.20-5.40) L 12/04/24 05:48
Hgb 9.7 g/dL (12.0-16.0) L 12/04/24 05:48
Hct 29.8 % (37.0-47.0) L 12/04/24 05:48
Plt Count 219 10^3/uL (130-400) 12/04/24 05:48
Sodium 137 mmol/L (135-145) 12/05/24 05:58
Potassium 4.3 mmol/L (3.5-5.1) 12/05/24 05:58
Chloride 99 mmol/L (98-107) 12/05/24 05:58
Carbon Dioxide 29 mmol/L (22-30) 12/05/24 05:58
BUN 74 mg/dl (7-17) H 12/05/24 05:58
Creatinine 4.0 mg/dL (0.6-1.0) H 12/05/24 05:58
eGFR 11.55 12/05/24 05:58
Glucose 143 mg/dl (70-99) H 12/05/24 05:58
Calcium 8.7 mg/dl (8.4-10.2) 12/05/24 05:58
Phosphorus 4.7 mg/dl (2.5-4.5) H 11/25/24 05:25
Mxa-U-Fvdkviztxit Pept 822 pg/ml 11/24/24 16:55
Albumin 3.3 g/dl (3.5-5.0) L 11/26/24 05:07
Physical Exam
-
Vital Signs:
Vital Signs
Temp Pulse Resp BP Pulse Ox
97.8 F 79 16 157/67 95
12/05/24 07:54 12/05/24 07:54 12/05/24 07:54 12/05/24 07:54 12/05/24 07:54
Cardiovascular:: Regular rate and rhythm
Respiratory:: Bilateral: Coarse
Lung Excursion:: Abnormal
Abdomen:: Distended, Nontender and Soft
Extremity Edema:: None: Bilateral: (trace)
Moran Catheter: No
--- NOTE | 2024-12-05 11:27 | W.PN.UPDATE ---
Update Note
Progress Note Update
patient seen chart reviewed. spoke with dr dejesus and nursing. the patient remains much the same. she can be disruptive calling out during the day or trying to get out of bed. she has started on abilify 2 mg q hs which i would gradually increase
depending on efficacy and resonse. i don't think the calling out and getting out of bed represent mood lability or psychosis. there is as well underlying dementia. psych will see her over weekend.
[2024-12-05 11:37] LABS: Glucose - Point of Care 195 mg/dl (70-99)
[2024-12-05] MEDS: NOVOLOG FLEXPEN-LOW RESISTANCE 1 UNITS SC (12:34)
--- NOTE | 2024-12-05 13:35 | W.PN.HOSP.TC ---
Today's Communication/Plan
-
d/c planning for snf rehab
Assessment / Plan
Assessment / Plan
Toxic metabolic encephalopathy - improved
Schizoaffective disorder/Bipolar disorder
- Not clear what acute alteration there has been.
- Patient with chronic cognitive impairment and psychosis with recent history noting progression.
- No evidence of acute infectious process, etc to explain any new / acute decompensation.
- Depakote level WNL - 46
- TSH normal
- Status post video swallow evaluation. Speech recommending regular diet. on IDDSI 5 diet
- Pt was getting Invega Sustenna every month although unable to be provided due to creatinine clearance is close to 10 and is contraindicated.
- Currently on regimen of Abilify 2 mg at bedtime/Depakote 250 3 times daily/Ativan 0.5 mg 3 times daily
ALBERTINA on CKDIIIB
Edema
Hyperkalemia
Diabetic nephropathy and proteinuria - non nephrotic range
- No recent labs available for comparison - [facility] records showing cr close to 3.
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
- UA with 3+ albumin.
- s/p IVF and IV albumin. currently on oral lasix 40mg/d
- Discussion with patient daughter on 11/25/2024 during patient hospitalization at [facility] patient was also found to have elevated creatinine.
- Patient with worsening renal function and potentially require hemodialysis support, not ideal candidate and nephrology has discussed this with patient family.
- Renal function has stabilized at lower level.
Nonischemic myocardial injury
- Patient heart rate currently stable
- Echocardiogram EF of 70 to 75%. Normal regional wall motion. Normal right ventricular size and function. Mild aortic stenosis.
- Last cardiac cath was 2008 with normal coronaries
- Cardiology signed off
Anemia - Likely due to CKD
- Hgb slightly decreased from prior baseline (again - compared to 2021 labs).
- Follow H&H for changes. start po b12. Trial of IV iron
Primary HTN
- controlled on regimen of Norvasc/hydralazine
DM-II
- Stable. Increase lantus dose to 14 units
- Follow glucose and cover with SSI as needed.
- Check A1C and 9.3.
Diarrhea / Constipation
- monitor for symptoms
- CT done in the ED this evening with no obstruction, marked constipation, etc.
- Repeat Abdomen xray with heavy stool burden. Enema with positive results.
DVT Prophylaxis: Subcut heparin
Code Status: Full
2/
Goal of care discussion done with patient brother and daughter at bedside.
Discussed at length that patient have worsening renal failure and despite maximal medical therapy patient renal status remains precarious. Patient creatinine has stabilized at a higher number of 4-4.5 range, fortunately no problematic sign of
volume overload/uremia/hyperkalemia developing yet and thus have some time to monitor.
Discussed at length the complexity and health burden of patient being put on dialysis. Shared with her behavioral/psychiatric issues will be definitely an extremely difficult patient to manage and complicate her care furthermore. Both brother and
daughter understands this and hopeful that kidney function will stabilize and patient will be able to transfer to be SNF. I have clarified that this may not happen and patient may continue to deteriorate, brother/daughter both understand this
although they are not verbalizing any agreement for hospice care and would like to see how things board turner.
Question of psychiatric medication causing further renal deterioration discussed and psychiatry have addressed this earlier with patient family.
Patient family requested a air compressor operator service which does not offer. I have provided a physical prescription for family to have third-democrat/private air compressor operator to be visiting patient while in the hospital.
Anticipated Discharge: 24 - 48 hours
Subjective/Interval History
-
Date of Service: December 05, 2024
Patient continued to have some behavioral issues
During the morning visit patient having lunch
Continues to complain diffuse abdominal discomfort, unable to locate
Objective Data
-
Labs:
Laboratory Results
02/07/25
05:58
Sodium 137
Potassium 4.3
Chloride 99
Carbon Dioxide 29
BUN 74 H
Creatinine 4.0 H
Glucose 143 H
Calcium 8.7
Vital Signs:
Vital Signs
Temp Pulse Resp BP Pulse Ox
97.8 F 79 16 157/67 95
12/05/24 07:54 12/05/24 07:54 12/05/24 07:54 12/05/24 07:54 12/05/24 07:54
I&O
12/04/24 12/05/24 12/06/24
06:59 06:59 06:59
Intake Total 1500 / 1500 960 / 960
Balance 1500 / 1500 960 / 960
Review of Systems
-
Respiratory: Reports No Symptoms
Cardiac: Reports No Symptoms
Abdomen/GI: Reports No Symptoms
Physical Exam
-
General: No Apparent Distress and Comfortable
HEENT: Negative Oxygen
Respiratory: Clear to Auscultation
Cardiac: Regular Rhythm and S1/S2; Negative Murmur or Rub
GI: Soft, Nontender and Nondistended
Musculoskeletal: No Edema
Neuro: Awake, Alert, Oriented, No Motor Deficits and Nonfocal/Grossly Intact
Psych: Calm
[2024-12-05 15:24] VITALS: BP 144/66
[2024-12-05 16:48] LABS: Glucose - Point of Care 138 mg/dl (70-99)
--- NOTE | 2024-12-05 18:07 | CM ---
[place] no beds. [facility] out of network.
PT OT not done today.
Spoke with son Christo [phone] reviewed above. Son requested SNF after PT OT evals
After PT OT see pt CM please enter following SNF [facility]. [facility]
Pt needs [facility] auth .
Psychiatry adjusted meds.
PLAn To Snf after located ad auth obtained
--- NOTE | 2024-12-05 20:30 | PTCARENOTE ---
Shortly after start of shift, pt decided to sit on floor where according to her was more 'comfortable' than her bed. RN's and tech helped pt back to bed, where she continued complaining about being removed off the floor because its where she wanted
to be. Pt did not fall, she lowered herself to floor from bed and sat there until assisted back up by staff.
[2024-12-05] MEDS: ABILIFY 2 MG PO (21:14)
[2024-12-05] MEDS: LIPITOR 20 MG PO (21:16)
[2024-12-05] MEDS: LANTUS 0.14 UNITS SC (21:18)
[2024-12-05 21:27] LABS: Glucose - Point of Care 136 mg/dl (70-99)
[2024-12-05 23:00] VITALS: BP 136/66
[2024-12-06] MEDS: HEPARIN SC (01:15)
[2024-12-06 06:00] VITALS: BMI 36.5
[2024-12-06 07:42] LABS: Glucose - Point of Care 120 mg/dl (70-99)
[2024-12-06] MEDS: NOVOLOG FLEXPEN-LOW RESISTANCE SC ×3 (07:52→17:27)
[2024-12-06] MEDS: ATIVAN 0.5 MG PO ×3 (07:55→21:33)
[2024-12-06] MEDS: LASIX 40 MG PO (07:55)
[2024-12-06] MEDS: LOW STRENGTH ASPIRIN 81 MG PO (07:55)
[2024-12-06 07:56] VITALS: BP 143/79
[2024-12-06] MEDS: VITAMIN B-12 1000 MCG PO (07:56)
[2024-12-06] MEDS: HEPARIN 5000 UNITS SC ×3 (07:56→23:28)
[2024-12-06] MEDS: APRESOLINE 50 MG PO ×2 (07:56→20:23)
[2024-12-06] MEDS: NORVASC 10 MG PO (07:56)
[2024-12-06] MEDS: TYLENOL 650 MG PO (07:56)
[2024-12-06] MEDS: DESENEX/MITRAZOL/ZEASORB 1 APPLIC TOPICAL ×2 (07:57→20:23)
[2024-12-06] MEDS: DEPAKOTE SPRINKLE 250 MG PO ×3 (08:03→21:32)
[2024-12-06 08:29] LABS: Blood Urea Nitrogen 75 mg/dl (7-17); Calcium 8.9 mg/dl (8.4-10.2); Carbon Dioxide 29 mmol/L (22-30); Chloride 96 mmol/L (98-107); Estimated Creatinine Clearance 13 ml/min; Glucose 114 mg/dl (70-99); Potassium 4.7 mmol/L (3.5-5.1); Sodium 135 mmol/L (135-145); eGFR 11.91
--- NOTE | 2024-12-06 09:49 | W.PN.NEPH.PH ---
Today's Communication / Plan
-
observe stable for discharge
Assessment/Plan
-
69y F with PMH significant for psychiatric disorder, DM-II, obesity and polyneuropathy who presents to ED from local [place] for evaluation of altered mental status.
renal consul for acute kidney injury.
Impression.
Acute or chronic kidney disease with a creatinine of 1.42 in 2021 no more recent labs and presents with a creatinine greater of 3.
Anemia without thrombocytopenia.
Altered mental status without signs of infection.
proteinuria in the setting of the diabetes with an Asarco.
Hypertension.
Plan.
creatinine stable (3.9) weight up urine output not recorded
known creatinine per family in 3 range at [facility] recently
likely DKD and possible has progressed
bp labile, holding ACEI
Lasix cont oral route, edema is much better
follow BMP
No emergent need of dialysis
On 12/03 Dr Curiel had Long discussion with the family including the brother and the daughter. They're more concerned that her behavioral issues likely are new and this is not her baseline and they expect to see improvement with the adjustment of
the medication by psychiatric. They are hopeful that the renal function will stabilize, they're not very sure if they will agree with the dialysis but want to check with the patient first, knowing her behavior family thinks she may not agree. We
also reviewed the fact that with emotional outbursts it will be difficult to maintain on dialysis. Family understands that and I think they wanted to give her a chance to make the call.
-
-
Date of Service: December 06, 2024
CC / HPI / ROS
-
Chief Complaint:
ALBERTINA
History of Present Illness:
ALBERTINA/Cr stable at 3.9
nephrotic range proteinuria
hgb low 9.7 stable
Hemodynamically stable
Review of Systems:
sleeping during visit
Weight up
Output not record
Labs
-
Labs:
WBC 6.7 10^3/uL (4.8-10.8) 12/04/24 05:48
RBC 3.42 10^6/uL (4.20-5.40) L 12/04/24 05:48
Hgb 9.7 g/dL (12.0-16.0) L 12/04/24 05:48
Hct 29.8 % (37.0-47.0) L 12/04/24 05:48
Plt Count 219 10^3/uL (130-400) 12/04/24 05:48
Sodium 135 mmol/L (135-145) 12/06/24 07:25
Potassium 4.7 mmol/L (3.5-5.1) 12/06/24 07:25
Chloride 96 mmol/L (98-107) L 12/06/24 07:25
Carbon Dioxide 29 mmol/L (22-30) 12/06/24 07:25
BUN 75 mg/dl (7-17) H 12/06/24 07:25
Creatinine 3.9 mg/dL (0.6-1.0) H 12/06/24 07:25
eGFR 11.91 12/06/24 07:25
Glucose 114 mg/dl (70-99) H 12/06/24 07:25
Calcium 8.9 mg/dl (8.4-10.2) 12/06/24 07:25
Phosphorus 4.7 mg/dl (2.5-4.5) H 11/25/24 05:25
Aqy-R-Ieyohcwdqtb Pept 822 pg/ml 11/24/24 16:55
Albumin 3.3 g/dl (3.5-5.0) L 11/26/24 05:07
Physical Exam
-
Vital Signs:
Vital Signs
Temp Pulse Resp BP Pulse Ox
97.6 F 69 18 143/79 97
12/05/24 23:00 12/06/24 07:56 12/06/24 07:56 12/06/24 07:56 12/06/24 07:56
Cardiovascular:: Regular rate and rhythm
Respiratory:: Bilateral: Coarse
Lung Excursion:: Abnormal
Abdomen:: Distended, Nontender and Soft
Extremity Edema:: None: Bilateral: (trace)
Moran Catheter: No
[2024-12-06 12:47] LABS: Glucose - Point of Care 143 mg/dl (70-99)
--- NOTE | 2024-12-06 12:50 | W.PN.UPDATE ---
Update Note
Progress Note Update
Pt seen, reviewed with nursing staff. Pt reportedly not sleeping at night, is up and restless/somewhat agitated. No reported psychotic signs/symptoms. Pt ate breakfast, and is currently sleeping soundly on her side in bed, not waking to verbal
stimuli. Pt was started on trial of Abilify for hx of ari with psychosis, 2 mg HS from 12/03/24. Also on trial of Depakote 250 mg TID, Ativan changed to 0.5 mg TID (from 1 mg BID at home). Creatinine slowly improving- 3.9 today. VPA level 63.3.
Imp: Schizoaffective d/o, bipolar type; no current signs of psychosis or ari, pt sedated, reportedly awake and restless at night
Rec: Would continue current dose of Depakote
Agree with trial of Abilify, will change to daytime- may be causing activation/reslessness at night
Will follow
--- NOTE | 2024-12-06 14:47 | W.PN.HOSP.TC ---
Today's Communication/Plan
-
medically clear for snf discharge
Assessment / Plan
Assessment / Plan
Toxic metabolic encephalopathy - improved
Schizoaffective disorder/Bipolar disorder
- Not clear what acute alteration there has been.
- Patient with chronic cognitive impairment and psychosis with recent history noting progression.
- No evidence of acute infectious process, etc to explain any new / acute decompensation.
- Depakote level WNL - 46
- TSH normal
- Status post video swallow evaluation. Speech recommending regular diet. on IDDSI 5 diet
- Pt was getting Invega Sustenna every month although unable to be provided due to creatinine clearance is close to 10 and is contraindicated.
- Psychiatry following and currently on regimen of Abilify/Ativan.
ALBERTINA on CKDIIIB
Edema
Hyperkalemia
Diabetic nephropathy and proteinuria - non nephrotic range
- No recent labs available for comparison - [facility] records showing cr close to 3.
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
- UA with 3+ albumin.
- s/p IVF and IV albumin. currently on oral lasix 40mg/d
- Discussion with patient daughter on 11/25/2024 during patient hospitalization at [facility] patient was also found to have elevated creatinine.
- Patient with worsening renal function and potentially require hemodialysis support, not ideal candidate and nephrology has discussed this with patient family.
- Renal function has stabilized at lower level.
Nonischemic myocardial injury
- Patient heart rate currently stable
- Echocardiogram EF of 70 to 75%. Normal regional wall motion. Normal right ventricular size and function. Mild aortic stenosis.
- Last cardiac cath was 2008 with normal coronaries
- Cardiology signed off
Anemia - Likely due to CKD
- Hgb slightly decreased from prior baseline (again - compared to 2021 labs).
- Follow H&H for changes. start po b12. Trial of IV iron
Primary HTN
- controlled on regimen of Norvasc/hydralazine
DM-II
- Stable. Increase lantus dose to 14 units
- Follow glucose and cover with SSI as needed.
- Check A1C and 9.3.
Diarrhea / Constipation
- monitor for symptoms
- CT done in the ED this evening with no obstruction, marked constipation, etc.
- Repeat Abdomen xray with heavy stool burden. Enema with positive results.
DVT Prophylaxis: Subcut heparin
Code Status: Full
2/5
Goal of care discussion done with patient brother and daughter at bedside.
Discussed at length that patient have worsening renal failure and despite maximal medical therapy patient renal status remains precarious. Patient creatinine has stabilized at a higher number of 4-4.5 range, fortunately no problematic sign of
volume overload/uremia/hyperkalemia developing yet and thus have some time to monitor.
Discussed at length the complexity and health burden of patient being put on dialysis. Shared with her behavioral/psychiatric issues will be definitely an extremely difficult patient to manage and complicate her care furthermore. Both brother and
daughter understands this and hopeful that kidney function will stabilize and patient will be able to transfer to be SNF. I have clarified that this may not happen and patient may continue to deteriorate, brother/daughter both understand this
although they are not verbalizing any agreement for hospice care and would like to see how things turn out worker.
Question of psychiatric medication causing further renal deterioration discussed and psychiatry have addressed this earlier with patient family.
Patient family requested a sorting machine attendant service which does not offer. I have provided a physical prescription for family to have third-constitution party/private sorting machine attendant to be visiting patient while in the hospital.
Anticipated Discharge: Today
Subjective/Interval History
-
Date of Service: December 06, 2024
sleeping in bed, apparently unable to sleep in the night
afebrile
Objective Data
-
Labs:
Laboratory Results
12/06/24
07:25
Sodium 135
Potassium 4.7
Chloride 96 L
Carbon Dioxide 29
BUN 75 H
Creatinine 3.9 H
Glucose 114 H
Calcium 8.9
Vital Signs:
Vital Signs
Temp Pulse Resp BP Pulse Ox
97.6 F 69 18 143/79 97
12/05/24 23:00 12/06/24 07:56 12/06/24 07:56 12/06/24 07:56 12/06/24 07:56
I&O
12/05/24 12/06/24 12/07/24
06:59 06:59 06:59
Intake Total 960 / 960 720 / 720
Balance 960 / 960 720 / 720
Review of Systems
-
Respiratory: Reports No Symptoms
Cardiac: Reports No Symptoms
Abdomen/GI: Reports No Symptoms
Physical Exam
-
General: No Apparent Distress and Comfortable
HEENT: Negative Oxygen
Respiratory: Clear to Auscultation
Cardiac: Regular Rhythm and S1/S2; Negative Murmur or Rub
GI: Soft, Nontender and Nondistended
Musculoskeletal: No Edema
Neuro: Awake, Alert, Oriented, No Motor Deficits and Nonfocal/Grossly Intact
Psych: Calm
[2024-12-06] MEDS: ULTRAM 25 MG PO (15:24)
[2024-12-06 15:30] VITALS: BP 144/71
[2024-12-06 17:18] LABS: Glucose - Point of Care 141 mg/dl (70-99)
[2024-12-06] MEDS: ZOFRAN ODT (ORALLY DISINTEGRATING) 4 MG PO (20:19)
[2024-12-06 21:18] LABS: Glucose - Point of Care 151 mg/dl (70-99)
[2024-12-06] MEDS: LIPITOR 20 MG PO (21:33)
[2024-12-06] MEDS: LANTUS 0.14 UNITS SC (21:34)
[2024-12-06 23:37] VITALS: BP 151/83
[2024-12-07] MEDS: TYLENOL 650 MG PO ×3 (01:43→19:52)
[2024-12-07 06:00] VITALS: BMI 37.2
[2024-12-07 07:30] VITALS: BP 130/59
[2024-12-07 07:53] LABS: Blood Urea Nitrogen 78 mg/dl (7-17); Calcium 8.9 mg/dl (8.4-10.2); Carbon Dioxide 30 mmol/L (22-30); Chloride 97 mmol/L (98-107); Estimated Creatinine Clearance 12 ml/min; Glucose 56 mg/dl (70-99); Potassium 4.2 mmol/L (3.5-5.1); Sodium 136 mmol/L (135-145); eGFR 11.55
[2024-12-07 08:45] LABS: Glucose - Point of Care 71 mg/dl (70-99)
[2024-12-07] MEDS: NOVOLOG FLEXPEN-LOW RESISTANCE SC ×3 (09:20→16:27)
[2024-12-07] MEDS: DEPAKOTE SPRINKLE 250 MG PO ×3 (09:20→21:01)
[2024-12-07] MEDS: ABILIFY 2 MG PO (09:21)
[2024-12-07] MEDS: VITAMIN B-12 1000 MCG PO (09:21)
[2024-12-07] MEDS: LOW STRENGTH ASPIRIN 81 MG PO (09:21)
[2024-12-07] MEDS: APRESOLINE 50 MG PO ×2 (09:21→19:51)
[2024-12-07] MEDS: NORVASC 10 MG PO (09:22)
[2024-12-07] MEDS: HEPARIN SC ×2 (09:22→16:11)
[2024-12-07] MEDS: LASIX 40 MG PO (09:22)
[2024-12-07] MEDS: ATIVAN 0.5 MG PO ×3 (09:22→21:02)
[2024-12-07] MEDS: DESENEX/MITRAZOL/ZEASORB 1 APPLIC TOPICAL ×2 (09:25→19:53)
--- NOTE | 2024-12-07 10:28 | W.PN.NEPH.PH ---
Today's Communication / Plan
-
follow
Assessment/Plan
-
69y F with PMH significant for psychiatric disorder, DM-II, obesity and polyneuropathy who presents to ED from local [place] for evaluation of altered mental status.
renal consul for acute kidney injury.
Impression.
Acute or chronic kidney disease with a creatinine of 1.42 in 2021 no more recent labs and presents with a creatinine greater of 3.
Anemia without thrombocytopenia.
Altered mental status without signs of infection.
proteinuria in the setting of the diabetes with an Asarco.
Hypertension.
Plan.
creatinine stable (4) weight up urine output not recorded
known creatinine per family in 3 range at [facility] recently
likely DKD and possible has progressed
bp stable, holding ACEI
Lasix 40mg cont oral route, edema is much better
follow BMP
No emergent need of dialysis
On 12/03 Dr Curiel had Long discussion with the family including the brother and the daughter. They're more concerned that her behavioral issues likely are new and this is not her baseline and they expect to see improvement with the adjustment of
the medication by psychiatric. They are hopeful that the renal function will stabilize, they're not very sure if they will agree with the dialysis but want to check with the patient first, knowing her behavior family thinks she may not agree. We
also reviewed the fact that with emotional outbursts it will be difficult to maintain on dialysis. Family understands that and I think they wanted to give her a chance to make the call.
-
-
Date of Service: December 07, 2024
CC / HPI / ROS
-
Chief Complaint:
ALBERTINA
History of Present Illness:
ALBERTINA/Cr stable at 3.9
nephrotic range proteinuria
hgb low 9.7 stable
Hemodynamically stable
Review of Systems:
sleeping during visit
Weight up
Output not record
Labs
-
Labs:
WBC 6.7 10^3/uL (4.8-10.8) 12/04/24 05:48
RBC 3.42 10^6/uL (4.20-5.40) L 12/04/24 05:48
Hgb 9.7 g/dL (12.0-16.0) L 12/04/24 05:48
Hct 29.8 % (37.0-47.0) L 12/04/24 05:48
Plt Count 219 10^3/uL (130-400) 12/04/24 05:48
Sodium 136 mmol/L (135-145) 12/07/24 06:51
Potassium 4.2 mmol/L (3.5-5.1) 12/07/24 06:51
Chloride 97 mmol/L (98-107) L 12/07/24 06:51
Carbon Dioxide 30 mmol/L (22-30) 12/07/24 06:51
BUN 78 mg/dl (7-17) H 12/07/24 06:51
Creatinine 4.0 mg/dL (0.6-1.0) H 12/07/24 06:51
eGFR 11.55 12/07/24 06:51
Glucose 56 mg/dl (70-99) L 12/07/24 06:51
Calcium 8.9 mg/dl (8.4-10.2) 12/07/24 06:51
Phosphorus 4.7 mg/dl (2.5-4.5) H 11/25/24 05:25
Ufz-Q-Rrdkyqtjftv Pept 822 pg/ml 11/24/24 16:55
Albumin 3.3 g/dl (3.5-5.0) L 11/26/24 05:07
Physical Exam
-
Vital Signs:
Vital Signs
Temp Pulse Resp BP Pulse Ox
97.3 F 56 18 130/59 95
12/07/24 07:30 12/07/24 07:30 12/07/24 07:30 12/07/24 07:30 12/07/24 07:30
Cardiovascular:: Regular rate and rhythm
Respiratory:: Bilateral: Coarse
Lung Excursion:: Abnormal
Abdomen:: Distended, Nontender and Soft
Extremity Edema:: None: Bilateral: (trace)
Moran Catheter: No
[2024-12-07 11:11] LABS: Glucose - Point of Care 134 mg/dl (70-99)
--- NOTE | 2024-12-07 12:14 | W.PN.HOSP.TC ---
Today's Communication/Plan
-
continue psych meds
decreased lantus dose
monitor BG
continue snf placement effort
Assessment / Plan
Assessment / Plan
Toxic metabolic encephalopathy - improved
Schizoaffective disorder/Bipolar disorder
- Not clear what acute alteration there has been.
- Patient with chronic cognitive impairment and psychosis with recent history noting progression.
- No evidence of acute infectious process, etc to explain any new / acute decompensation.
- Depakote level WNL - 46
- TSH normal
- Status post video swallow evaluation. Speech recommending regular diet. on IDDSI 5 diet
- Pt was getting Invega Sustenna every month although unable to be provided due to creatinine clearance is close to 10 and is contraindicated.
- Psychiatry following and currently on regimen of Abilify/Ativan.
ALBERTINA on CKDIIIB
Edema
Hyperkalemia
Diabetic nephropathy and proteinuria - non nephrotic range
- No recent labs available for comparison - [facility] records showing cr close to 3.
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
- UA with 3+ albumin.
- s/p IVF and IV albumin. currently on oral lasix 40mg/d
- Discussion with patient daughter on 11/25/2024 during patient hospitalization at [facility] patient was also found to have elevated creatinine.
- Patient with worsening renal function and potentially require hemodialysis support, not ideal candidate and nephrology has discussed this with patient family.
- Renal function has stabilized at lower level.
Nonischemic myocardial injury
- Patient heart rate currently stable
- Echocardiogram EF of 70 to 75%. Normal regional wall motion. Normal right ventricular size and function. Mild aortic stenosis.
- Last cardiac cath was 2008 with normal coronaries
- Cardiology signed off
Anemia - Likely due to CKD
- Hgb slightly decreased from prior baseline (again - compared to 2021 labs).
- Follow H&H for changes. start po b12. Trial of IV iron
Primary HTN
- controlled on regimen of Norvasc/hydralazine
DM-II
Episode of hypoglycemia
- Stable.
- Blood glucose low at 56 in the morning. Lantus dose decreased to 12U HS
- Check A1C and 9.3.
Diarrhea / Constipation
- monitor for symptoms
- CT done in the ED this evening with no obstruction, marked constipation, etc.
- Repeat Abdomen xray with heavy stool burden. Enema with positive results.
DVT Prophylaxis: Subcut heparin
Code Status: Full
2
Goal of care discussion done with patient brother and daughter at bedside.
Discussed at length that patient have worsening renal failure and despite maximal medical therapy patient renal status remains precarious. Patient creatinine has stabilized at a higher number of 4-4.5 range, fortunately no problematic sign of
volume overload/uremia/hyperkalemia developing yet and thus have some time to monitor.
Discussed at length the complexity and health burden of patient being put on dialysis. Shared with her behavioral/psychiatric issues will be definitely an extremely difficult patient to manage and complicate her care furthermore. Both brother and
daughter understands this and hopeful that kidney function will stabilize and patient will be able to transfer to be SNF. I have clarified that this may not happen and patient may continue to deteriorate, brother/daughter both understand this
although they are not verbalizing any agreement for hospice care and would like to see how things return checker.
Question of psychiatric medication causing further renal deterioration discussed and psychiatry have addressed this earlier with patient family.
Patient family requested a project development leader service which does not offer. I have provided a physical prescription for family to have third-constitution party/private project development leader to be visiting patient while in the hospital.
Anticipated Discharge: Today
Subjective/Interval History
-
Date of Service: December 07, 2024
Resting comfortably in bed
Patient hypoglycemic in the morning
Objective Data
-
Labs:
Laboratory Results
12/07/24
06:51
Sodium 136
Potassium 4.2
Chloride 97 L
Carbon Dioxide 30
BUN 78 H
Creatinine 4.0 H
Glucose 56 L
Calcium 8.9
Vital Signs:
Vital Signs
Temp Pulse Resp BP Pulse Ox
97.3 F 56 18 130/59 95
12/07/24 07:30 12/07/24 07:30 12/07/24 07:30 12/07/24 07:30 12/07/24 07:30
I&O
12/06/24 12/07/24 12/08/24
06:59 06:59 06:59
Intake Total 720 / 720 1080 / 1080
Balance 720 / 720 1080 / 1080
Review of Systems
-
Unable to obtain full review of systems at this time due to: Acuity
Physical Exam
-
General: No Apparent Distress and Comfortable
HEENT: Negative Oxygen
Respiratory: Clear to Auscultation
Neuro: Other (Somnolentg)
Psych: Calm
--- NOTE | 2024-12-07 14:05 | W.PN.UPDATE ---
Update Note
Progress Note Update
Pt seen, reviewed with nursing staff. Pt reportedly slept better last night, after Abilify changed to daytime. Pt ate breakfast, found awake, sitting up on the side of the bed. She complains about her care, similar to her chronic complaints in
her outpatient visits. Invega HARRIS stopped due to contraindication with renal impairment, pt switched to Abilify for hx of ari with psychosis. Per Nephrology, Creatinine apparently stabilized at higher level, 4.0. VPA level 63.3 on 250 mg TID.
Imp: Schizoaffective d/o, bipolar type; no current signs of psychosis or ari, appears at baseline state
Rec: Would continue current dose of Depakote, continue on Abilify 2 mg daytime with eventual increase, continue Ativan 0.5 mg TID
Return to Outpatient Med mgt at [facility] when medically stable
Will follow
--- NOTE | 2024-12-07 14:51 | PTCARENOTE ---
This am, patient's lab glucose on chemistry was 56 at 0651. no s/s of hypoglycemia. at 0845, able to obtain AccuCheck after patient refused multiple times and is was 71. patient seems to have periods of somnolence and impulsiveness. incontinent
of large brown liquid stool all over gown and floor as she tried to get up and transfer to during episode. vss, will continue to monitor.
[2024-12-07 16:00] VITALS: BP 143/72
[2024-12-07 16:20] LABS: Glucose - Point of Care 146 mg/dl (70-99)
[2024-12-07] MEDS: LIPITOR 20 MG PO (21:02)
[2024-12-07 21:56] LABS: Glucose - Point of Care 273 mg/dl (70-99)
[2024-12-07] MEDS: LANTUS 0.12 UNITS SC (22:39)
[2024-12-07 23:52] VITALS: BP 127/87
[2024-12-08] MEDS: HEPARIN SC ×2 (00:40→23:28)
--- NOTE | 2024-12-08 03:41 | PTCARENOTE ---
Pt restless and frequently sitting up in bed, setting off bed alarm throughout the night. Pt placed at nurse's station and was able to sleep for short periods of time.
[2024-12-08] MEDS: TYLENOL 650 MG PO (05:06)
[2024-12-08 06:00] VITALS: BMI 37.2
[2024-12-08 07:15] VITALS: BP 161/73
[2024-12-08] MEDS: HEPARIN 5000 UNITS SC ×2 (07:17→16:06)
[2024-12-08] MEDS: ATIVAN 0.5 MG PO ×2 (07:17→16:58)
[2024-12-08] MEDS: LOW STRENGTH ASPIRIN 81 MG PO (07:17)
[2024-12-08] MEDS: ABILIFY 2 MG PO (07:17)
[2024-12-08] MEDS: VITAMIN B-12 1000 MCG PO (07:17)
[2024-12-08] MEDS: DEPAKOTE SPRINKLE 250 MG PO ×3 (07:25→21:17)
[2024-12-08] MEDS: NORVASC 10 MG PO (07:26)
[2024-12-08] MEDS: LASIX 40 MG PO (07:26)
[2024-12-08] MEDS: APRESOLINE 50 MG PO ×2 (07:26→21:18)
[2024-12-08] MEDS: DESENEX/MITRAZOL/ZEASORB 1 APPLIC TOPICAL ×2 (07:28→21:10)
[2024-12-08 07:48] LABS: Glucose - Point of Care 126 mg/dl (70-99)
[2024-12-08] MEDS: NOVOLOG FLEXPEN-LOW RESISTANCE SC (07:49)
[2024-12-08 08:13] LABS: Blood Urea Nitrogen 83 mg/dl (7-17); Calcium 8.8 mg/dl (8.4-10.2); Carbon Dioxide 28 mmol/L (22-30); Chloride 98 mmol/L (98-107); Estimated Creatinine Clearance 12 ml/min; Glucose 105 mg/dl (70-99); Potassium 4.8 mmol/L (3.5-5.1); Sodium 136 mmol/L (135-145)
--- NOTE | 2024-12-08 11:30 | W.PN.NEPH.PH ---
Today's Communication / Plan
-
Continue supportive care no acute need for dialysis
Assessment/Plan
-
69y F with PMH significant for psychiatric disorder, DM-II, obesity and polyneuropathy who presents to ED from local [place] for evaluation of altered mental status.
renal consul for acute kidney injury.
Impression.
Acute or chronic kidney disease with a creatinine of 1.42 in 2021 no more recent labs and presents with a creatinine greater of 3.
Anemia without thrombocytopenia.
Altered mental status without signs of infection.
proteinuria in the setting of the diabetes with an Asarco.
Hypertension.
Plan.
creatinine stable (4)
known creatinine per family in 3 range at [facility] recently
likely DKD and possible has progressed
bp stable, holding ACEI
Lasix 40mg cont oral route, edema is much better
follow BMP
No emergent need of dialysis
On 12/03 Dr Curiel had Long discussion with the family including the brother and the daughter. They're more concerned that her behavioral issues likely are new and this is not her baseline and they expect to see improvement with the adjustment of
the medication by psychiatric. They are hopeful that the renal function will stabilize, they're not very sure if they will agree with the dialysis but want to check with the patient first, knowing her behavior family thinks she may not agree. We
also reviewed the fact that with emotional outbursts it will be difficult to maintain on dialysis. Family understands that and I think they wanted to give her a chance to make the call.
No acute need for dialysis with that said
-
-
Date of Service: December 08, 2024
CC / HPI / ROS
-
Chief Complaint:
ALBERTINA
History of Present Illness:
ALBERTINA/Cr stable
nephrotic range proteinuria
hgb low 9.7 stable
Hemodynamically stable
Review of Systems:
Not sleeping overnight
Output not record
Labs
-
Labs:
WBC 6.7 10^3/uL (4.8-10.8) 12/04/24 05:48
RBC 3.42 10^6/uL (4.20-5.40) L 12/04/24 05:48
Hgb 9.7 g/dL (12.0-16.0) L 12/04/24 05:48
Hct 29.8 % (37.0-47.0) L 12/04/24 05:48
Plt Count 219 10^3/uL (130-400) 12/04/24 05:48
Sodium 136 mmol/L (135-145) 12/08/24 07:24
Potassium 4.8 mmol/L (3.5-5.1) 12/08/24 07:24
Chloride 98 mmol/L (98-107) 12/08/24 07:24
Carbon Dioxide 28 mmol/L (22-30) 12/08/24 07:24
BUN 83 mg/dl (7-17) H 12/08/24 07:24
Creatinine 4.2 mg/dL (0.6-1.0) H* 12/08/24 07:24
eGFR 10.90 12/08/24 07:24
Glucose 105 mg/dl (70-99) H 12/08/24 07:24
Calcium 8.8 mg/dl (8.4-10.2) 12/08/24 07:24
Phosphorus 4.7 mg/dl (2.5-4.5) H 11/25/24 05:25
Jau-V-Xwbftamerck Pept 822 pg/ml 11/24/24 16:55
Albumin 3.3 g/dl (3.5-5.0) L 11/26/24 05:07
Physical Exam
-
Vital Signs:
Vital Signs
Temp Pulse Resp BP Pulse Ox
97.4 F 73 20 161/73 93
12/08/24 07:15 12/08/24 07:15 12/08/24 07:15 12/08/24 07:15 12/08/24 07:15
Cardiovascular:: Regular rate and rhythm
Respiratory:: Bilateral: Coarse
Lung Excursion:: Abnormal
Abdomen:: Distended, Nontender and Soft
Extremity Edema:: None: Bilateral: (trace)
Moran Catheter: No
--- NOTE | 2024-12-08 13:03 | W.PN.HOSP.TC ---
Today's Communication/Plan
-
PT/OT when able
melatonin added
psych recs
trend cr
monitor BP
Assessment / Plan
Assessment / Plan
Toxic metabolic encephalopathy - improved
Schizoaffective disorder/Bipolar disorder
- Not clear what acute alteration there has been.
- Patient with chronic cognitive impairment and psychosis with recent history noting progression.
- No evidence of acute infectious process, etc to explain any new / acute decompensation.
- Depakote level WNL - 46
- TSH normal
- Status post video swallow evaluation. Speech recommending regular diet. on IDDSI 5 diet
- Pt was getting Invega Sustenna every month although unable to be provided due to creatinine clearance is close to 10 and is contraindicated.
- Psychiatry following and currently on regimen of Abilify/Ativan. Melatonin added.
ALBERTINA on CKDIIIB
Edema
Hyperkalemia
Diabetic nephropathy and proteinuria - non nephrotic range
- No recent labs available for comparison - [facility] records showing cr close to 3.
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
- UA with 3+ albumin.
- s/p IVF and IV albumin. currently on oral lasix 40mg/d
- Discussion with patient daughter on 11/25/2024 during patient hospitalization at [facility] patient was also found to have elevated creatinine.
- Patient with worsening renal function and potentially require hemodialysis support, not ideal candidate and nephrology has discussed this with patient family.
- Renal function at 4.2. Now with BUN elevated. Nephrology following.
Nonischemic myocardial injury
- Patient heart rate currently stable
- Echocardiogram EF of 70 to 75%. Normal regional wall motion. Normal right ventricular size and function. Mild aortic stenosis.
- Last cardiac cath was 2008 with normal coronaries
- Cardiology signed off
Anemia - Likely due to CKD
- Hgb slightly decreased from prior baseline (again - compared to 2021 labs).
- Follow H&H for changes. start po b12. Trial of IV iron
Primary HTN
- controlled on regimen of Norvasc/hydralazine
DM-II
Episode of hypoglycemia
- Stable.
- Blood glucose low at 56 in the morning. Lantus dose decreased to 12U HS
- Check A1C and 9.3.
Diarrhea / Constipation
- monitor for symptoms
- CT done in the ED this evening with no obstruction, marked constipation, etc.
- Repeat Abdomen xray with heavy stool burden. Enema with positive results.
DVT Prophylaxis: Subcut heparin
Code Status: Full
12/[address] Oneill discussed Goal of care discussion done with patient brother and daughter at bedside.
Discussed at length that patient have worsening renal failure and despite maximal medical therapy patient renal status remains precarious. Patient creatinine has stabilized at a higher number of 4-4.5 range, fortunately no problematic sign of
volume overload/uremia/hyperkalemia developing yet and thus have some time to monitor.
Discussed at length the complexity and health burden of patient being put on dialysis. Shared with her behavioral/psychiatric issues will be definitely an extremely difficult patient to manage and complicate her care furthermore. Both brother and
daughter understands this and hopeful that kidney function will stabilize and patient will be able to transfer to be SNF. I have clarified that this may not happen and patient may continue to deteriorate, brother/daughter both understand this
although they are not verbalizing any agreement for hospice care and would like to see how things inspector returned materials.
Question of psychiatric medication causing further renal deterioration discussed and psychiatry have addressed this earlier with patient family.
Patient family requested a media/instructional designer service which does not offer. I have provided a physical prescription for family to have third-libertarian/private media/instructional designer to be visiting patient while in the hospital.
Anticipated Discharge: 24 - 48 hours
Subjective/Interval History
-
Date of Service: December 08, 2024
overnight didn't sleep much
Objective Data
-
Labs:
Laboratory Results
02/10/25
07:24
Sodium 136
Potassium 4.8
Chloride 98
Carbon Dioxide 28
BUN 83 H
Creatinine 4.2 H*
Glucose 105 H
Calcium 8.8
Vital Signs:
Vital Signs
Temp Pulse Resp BP Pulse Ox
97.4 F 73 20 161/73 93
12/08/24 07:15 12/08/24 07:15 12/08/24 07:15 12/08/24 07:15 12/08/24 07:15
I&O
12/07/24 12/08/24 12/09/24
06:59 06:59 06:59
Intake Total 1080 / 1080 720 / 720
Output Total 400 / 400
Balance 1080 / 1080 320 / 320
Physical Exam
-
General: No Apparent Distress, Comfortable and Morbidly Obese
HEENT: Normocephalic, Atraumatic and Moist Mucous Membranes; Negative Oxygen
Respiratory: Clear to Auscultation
Cardiac: Regular Rhythm and S1/S2
GI: Soft, Nontender, Nondistended, Normal Bowel Sounds and Other (obese )
Genito-urinary: Deferred by me
Musculoskeletal: No Cyanosis
Neuro: Other (Somnolent )
Psych: Calm
[2024-12-08 13:18] LABS: Glucose - Point of Care 245 mg/dl (70-99)
[2024-12-08] MEDS: NOVOLOG FLEXPEN-LOW RESISTANCE 2 UNITS SC (13:28)
--- NOTE | 2024-12-08 14:21 | W.PN.UPDATE ---
Update Note
Progress Note Update
patient seen chart reviewed. discussed w nursing and with cm. the patient did not sleep at all last evening and she has been restless today. she seemed to be unmcomfortable and nsg did reposition her several times but she was still seemingly
uncomfortable. hospitalist ordered hs melatonin. have inc ativan at hs to one mg. i put in a call to her brother left message. she may have a place at snf but need to ascertain insurance. i do have some concern about inc in [place] as it could
increase her restlessness.
--- NOTE | 2024-12-08 15:01 | CM ---
Spoke with admissions at [facility] who stated that she has a bed for patient pending auth. NPI# for authorization, [id number]. [place]. NPI for facility, [id number].
Plan: Case management will continue to follow and assist with discharge planning. SNF when auth obtained.
[2024-12-08 15:30] VITALS: BP 144/70
[2024-12-08] MEDS: NOVOLOG FLEXPEN-LOW RESISTANCE 1 UNITS SC (16:57)
[2024-12-08 16:58] LABS: Glucose - Point of Care 151 mg/dl (70-99)
[2024-12-08] MEDS: MELATONIN 5 MG PO (21:18)
[2024-12-08] MEDS: LIPITOR 20 MG PO (21:18)
[2024-12-08] MEDS: ATIVAN 1 MG PO (21:18)
[2024-12-08] MEDS: LANTUS 0.12 UNITS SC (21:20)
[2024-12-08 21:21] LABS: Glucose - Point of Care 152 mg/dl (70-99)
[2024-12-09 06:57] VITALS: BP 141/69
[2024-12-09 07:33] LABS: Glucose - Point of Care 152 mg/dl (70-99)
[2024-12-09] MEDS: LASIX 40 MG PO (08:15)
[2024-12-09] MEDS: DEPAKOTE SPRINKLE 250 MG PO ×3 (08:15→21:04)
[2024-12-09] MEDS: ATIVAN 0.5 MG PO ×2 (08:15→16:10)
[2024-12-09] MEDS: APRESOLINE 50 MG PO ×2 (08:15→21:04)
[2024-12-09] MEDS: VITAMIN B-12 1000 MCG PO (08:15)
[2024-12-09] MEDS: LOW STRENGTH ASPIRIN 81 MG PO (08:16)
[2024-12-09] MEDS: NORVASC 10 MG PO (08:16)
[2024-12-09] MEDS: HEPARIN 5000 UNITS SC ×2 (08:16→16:10)
[2024-12-09] MEDS: DESENEX/MITRAZOL/ZEASORB 1 APPLIC TOPICAL ×2 (08:17→21:07)
[2024-12-09] MEDS: ABILIFY 2 MG PO ×2 (08:25→21:04)
[2024-12-09] MEDS: NOVOLOG FLEXPEN-LOW RESISTANCE 1 UNITS SC (08:27)
[2024-12-09 08:36] LABS: Blood Urea Nitrogen 83 mg/dl (7-17); Calcium 8.9 mg/dl (8.4-10.2); Carbon Dioxide 30 mmol/L (22-30); Chloride 97 mmol/L (98-107); Estimated Creatinine Clearance 12 ml/min; Glucose 133 mg/dl (70-99); Potassium 5.3 mmol/L (3.5-5.1); Sodium 135 mmol/L (135-145); eGFR 11.22
--- NOTE | 2024-12-09 11:04 | W.PN.HOSP.TC ---
Today's Communication/Plan
-
Awaiting auth. Psych recs for meds adjustment. lokelma. lasix.
Assessment / Plan
Assessment / Plan
Toxic metabolic encephalopathy - improved
Schizoaffective disorder/Bipolar disorder
Insomnia
- Not clear what acute alteration there has been.
- Patient with chronic cognitive impairment and psychosis with recent history noting progression.
- No evidence of acute infectious process, etc to explain any new / acute decompensation.
- Depakote level WNL - 46
- TSH normal
- Status post video swallow evaluation. Speech recommending regular diet.
- Pt was getting Invega Sustenna every month although unable to be provided due to creatinine clearance is close to 10 and is contraindicated.
- Psychiatry following and currently on regimen of Abilify/Ativan. Ativan dose increased to 1mg. Melatonin added. Psych further recs for meds adjustment
ALBERTINA on CKDIIIB
Edema
Hyperkalemia
Diabetic nephropathy and proteinuria - non nephrotic range
- No recent labs available for comparison - [facility] records showing cr close to 3.
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
- UA with 3+ albumin.
- s/p IVF and IV albumin. currently on oral lasix 40mg daily should help with k of 5.3
- one dose of lokelma
- Discussion with patient daughter on 11/25/2024 during patient hospitalization at [facility] patient was also found to have elevated creatinine.
- Patient with worsening renal function and potentially require hemodialysis support, not ideal candidate and nephrology has discussed this with patient family.
- Renal function around 4-4.2 Now with BUN elevated. Nephrology following.
Nonischemic myocardial injury
- Patient heart rate currently stable
- Echocardiogram EF of 70 to 75%. Normal regional wall motion. Normal right ventricular size and function. Mild aortic stenosis.
- Last cardiac cath was 2008 with normal coronaries
- Cardiology signed off
Anemia - Likely due to CKD
- Hgb slightly decreased from prior baseline (again - compared to 2021 labs).
- Follow H&H for changes. start po b12. Trial of IV iron
Primary HTN
- controlled on regimen of Norvasc/hydralazine
DM-II
Episode of hypoglycemia
- Stable.
- POC am 152. Lantus dose decreased to 12U HS
- Check A1C and 9.3.
Diarrhea / Constipation
- monitor for symptoms
- CT done in the ED this evening with no obstruction, marked constipation, etc.
- Repeat Abdomen xray with heavy stool burden. Enema with positive results.
DVT Prophylaxis: Subcut heparin
Code Status: Full
2/
Dr. Oneill discussed Goal of care discussion done with patient brother and daughter at bedside.
Discussed at length that patient have worsening renal failure and despite maximal medical therapy patient renal status remains precarious. Patient creatinine has stabilized at a higher number of 4-4.5 range, fortunately no problematic sign of
volume overload/uremia/hyperkalemia developing yet and thus have some time to monitor.
Discussed at length the complexity and health burden of patient being put on dialysis. Shared with her behavioral/psychiatric issues will be definitely an extremely difficult patient to manage and complicate her care furthermore. Both brother and
daughter understands this and hopeful that kidney function will stabilize and patient will be able to transfer to be SNF. I have clarified that this may not happen and patient may continue to deteriorate, brother/daughter both understand this
although they are not verbalizing any agreement for hospice care and would like to see how things route returner.
Question of psychiatric medication causing further renal deterioration discussed and psychiatry have addressed this earlier with patient family.
Patient family requested a armoured car escort service which does not offer. I have provided a physical prescription for family to have third-alliance party/private armoured car escort to be visiting patient while in the hospital.
PT/OT-SNF on DC. Awaiting auth. Psych recs for meds adjustment. lokelma. lasix.
Anticipated Discharge: 24 - 48 hours
Subjective/Interval History
-
Date of Service: December 09, 2024
per Rn, pt did not sleep much overnight
remains with good appetite
sleeping poorly overnight
Objective Data
-
Labs:
Laboratory Results
12/09/24
07:03
Sodium 135
Potassium 5.3 H
Chloride 97 L
Carbon Dioxide 30
BUN 83 H
Creatinine 4.1 H*
Glucose 133 H
Calcium 8.9
Vital Signs:
Vital Signs
Temp Pulse Resp BP Pulse Ox
97.8 F 71 17 141/69 98
12/09/24 06:57 12/09/24 06:57 12/09/24 06:57 12/09/24 06:57 12/09/24 08:30
I&O
12/08/24 12/09/24 12/10/24
06:59 06:59 06:59
Intake Total 720 / 720 720 / 720
Output Total 400 / 400 550 / 550
Balance 320 / 320 170 / 170
Physical Exam
-
General: No Apparent Distress, Comfortable and Morbidly Obese
HEENT: Normocephalic, Atraumatic and Moist Mucous Membranes; Negative Oxygen
Respiratory: Clear to Auscultation
Cardiac: Regular Rhythm and S1/S2
GI: Soft, Nontender, Nondistended, Normal Bowel Sounds and Other (obese )
Genito-urinary: Deferred by me
Musculoskeletal: No Cyanosis
Neuro: Other (Somnolent )
Psych: Calm
Data Reviewed
-
Total Time Spent with Patient (in minutes): 55
--- NOTE | 2024-12-09 11:22 | W.PN.UPDATE ---
Addendum entered and electronically signed by Allison Alcala MD 12/09/24 11:36:
reviewed pt ot and speech evals for patient which substantiate the need for ongoing care requiting intermediate care and supervision. she really can do little on her own without cuing and supervision including eating movement washing bathing brushing
teeth and toileting.
Addendum entered and electronically signed by Allison Alcala MD 12/09/24 11:31:
spoke to brother about the above. he is in agreement with current plan. he is appealing the denial of insurance company for superintendent container terminal care. this patient is definitely a fall risk and at risk for aspiration hence the need for 24 hours supervision
and intermediate to ensure her safety, medication management. this patient is very signficantly cognitively impaired and clearly needs much assistance.
Original Note:
Update Note
Progress Note Update
patient seen chart reviewed. discussed with nursing and with manager assessment who is now here eight hours daily. the patient is much the same. she did not sleep well last night. she remains impulsive and intermittently agitated during the day. discussed
w manager assessment that big concerns are aspiration so care when eating is important encourage slower intake chewing thoroughly and also concern re falling. palliative care specialist is very experienced and has worked with other family members of yusuf as well. have
increased abilify to 2 mg bid. there is possibility re snf in the near future. brother is preparing to receive yusuf eventually at home and hire caretakers to be with her and her 96 yo father who is also in the home. will follow
[2024-12-09 11:23] LABS: Glucose - Point of Care 227 mg/dl (70-99)
[2024-12-09] MEDS: LOKELMA PO (11:46)
[2024-12-09] MEDS: LOKELMA 10 GRAM PO (12:47)
[2024-12-09] MEDS: NOVOLOG FLEXPEN-LOW RESISTANCE 2 UNITS SC ×2 (12:51→17:45)
--- NOTE | 2024-12-09 12:53 | CM ---
Patient's brother left packet for continuum of care. Left packet in chart to go with him to the NH as the care plan dictates instructions regarding her return to home.
Plan: Case management will continue to follow and assist with discharge planning. [place] when stable.
--- NOTE | 2024-12-09 13:33 | W.PN.NEPH.PH ---
Today's Communication / Plan
-
2 Gram potassium diet added
Assessment/Plan
-
69y F with PMH significant for psychiatric disorder, DM-II, obesity and polyneuropathy who presents to ED from local [place] for evaluation of altered mental status.
renal consul for acute kidney injury.
Impression.
Acute or chronic kidney disease with a creatinine of 1.42 in 2021 no more recent labs and presents with a creatinine greater of 3.
Anemia without thrombocytopenia.
Altered mental status without signs of infection.
proteinuria in the setting of the diabetes with an [place]. But
Hypertension.
Plan.
creatinine stable (4)
known creatinine per family in 3 range at [facility] recently
likely DKD and possible has progressed
bp stable, holding ACEI
Lasix 40mg cont oral route, edema is much better
follow BMP
No emergent need of dialysis
Potassium 5.3. May need to start Lokelma. Will trend for now with a potassium restriction added
On 12/03 Dr Curiel had Long discussion with the family including the brother and the daughter. They're more concerned that her behavioral issues likely are new and this is not her baseline and they expect to see improvement with the adjustment of
the medication by psychiatric. They are hopeful that the renal function will stabilize, they're not very sure if they will agree with the dialysis but want to check with the patient first, knowing her behavior family thinks she may not agree. We
also reviewed the fact that with emotional outbursts it will be difficult to maintain on dialysis. Family understands that and I think they wanted to give her a chance to make the call.
-
-
Date of Service: December 09, 2024
CC / HPI / ROS
-
Chief Complaint:
ALBERTINA
History of Present Illness:
ALBERTINA/Cr stable
nephrotic range proteinuria
hgb low 9.7 stable
Hemodynamically stable
Review of Systems:
Not sleeping overnight
Output not record
Labs
-
Labs:
WBC 6.7 10^3/uL (4.8-10.8) 12/04/24 05:48
RBC 3.42 10^6/uL (4.20-5.40) L 12/04/24 05:48
Hgb 9.7 g/dL (12.0-16.0) L 12/04/24 05:48
Hct 29.8 % (37.0-47.0) L 12/04/24 05:48
Plt Count 219 10^3/uL (130-400) 12/04/24 05:48
Sodium 135 mmol/L (135-145) 12/09/24 07:03
Potassium 5.3 mmol/L (3.5-5.1) H 12/09/24 07:03
Chloride 97 mmol/L (98-107) L 12/09/24 07:03
Carbon Dioxide 30 mmol/L (22-30) 12/09/24 07:03
BUN 83 mg/dl (7-17) H 12/09/24 07:03
Creatinine 4.1 mg/dL (0.6-1.0) H* 12/09/24 07:03
eGFR 11.22 12/09/24 07:03
Glucose 133 mg/dl (70-99) H 12/09/24 07:03
Calcium 8.9 mg/dl (8.4-10.2) 12/09/24 07:03
Phosphorus 4.7 mg/dl (2.5-4.5) H 11/25/24 05:25
Bso-A-Njhufdrilxz Pept 822 pg/ml 11/24/24 16:55
Albumin 3.3 g/dl (3.5-5.0) L 11/26/24 05:07
Physical Exam
-
Vital Signs:
Vital Signs
Temp Pulse Resp BP Pulse Ox
97.8 F 71 17 141/69 98
12/09/24 06:57 12/09/24 06:57 12/09/24 06:57 12/09/24 06:57 12/09/24 08:30
Cardiovascular:: Regular rate and rhythm
Respiratory:: Bilateral: Coarse
Lung Excursion:: Abnormal
Abdomen:: Distended, Nontender and Soft
Extremity Edema:: None: Bilateral: (trace)
Moran Catheter: No
[2024-12-09 15:14] VITALS: BP 117/48
[2024-12-09 16:26] LABS: Glucose - Point of Care 202 mg/dl (70-99)
[2024-12-09] MEDS: MELATONIN 5 MG PO (21:03)
[2024-12-09] MEDS: LIPITOR 20 MG PO (21:04)
[2024-12-09] MEDS: ATIVAN 1 MG PO (21:07)
[2024-12-09] MEDS: LANTUS 0.12 UNITS SC (21:11)
[2024-12-09 21:13] LABS: Glucose - Point of Care 204 mg/dl (70-99)
[2024-12-09 23:21] VITALS: BP 158/85
[2024-12-10] MEDS: HEPARIN SC (00:04)
[2024-12-10 06:00] VITALS: BMI 37.0
[2024-12-10] MEDS: TYLENOL 650 MG PO (06:19)
[2024-12-10 07:23] VITALS: BP 121/70
[2024-12-10 07:33] LABS: Glucose - Point of Care 111 mg/dl (70-99)
[2024-12-10] MEDS: NOVOLOG FLEXPEN-LOW RESISTANCE SC ×2 (07:40→15:10)
[2024-12-10] MEDS: HEPARIN 5000 UNITS SC ×3 (07:41→23:04)
[2024-12-10] MEDS: NORVASC 10 MG PO (07:42)
[2024-12-10] MEDS: DEPAKOTE SPRINKLE 250 MG PO ×3 (07:42→20:07)
[2024-12-10] MEDS: ABILIFY 2 MG PO (07:42)
[2024-12-10] MEDS: VITAMIN B-12 1000 MCG PO (07:42)
[2024-12-10] MEDS: LASIX 40 MG PO (07:43)
[2024-12-10] MEDS: LOW STRENGTH ASPIRIN 81 MG PO (07:43)
[2024-12-10] MEDS: ATIVAN 0.5 MG PO ×2 (07:43→16:26)
[2024-12-10] MEDS: APRESOLINE 50 MG PO ×2 (07:43→20:07)
[2024-12-10] MEDS: DESENEX/MITRAZOL/ZEASORB 1 APPLIC TOPICAL ×2 (07:44→20:16)
--- NOTE | 2024-12-10 09:33 | W.PN.NEPH.PH ---
Today's Communication / Plan
-
No new recommendations
Follow-up labs Lokelma as needed for
No acute need for dialysis
Assessment/Plan
-
69y F with PMH significant for psychiatric disorder, DM-II, obesity and polyneuropathy who presents to ED from local [place] for evaluation of altered mental status.
renal consul for acute kidney injury.
Impression.
Acute or chronic kidney disease with a creatinine of 1.42 in 2021 no more recent labs and presents with a creatinine greater of 3.
Anemia without thrombocytopenia.
Altered mental status without signs of infection.
proteinuria in the setting of the diabetes with an [place]arco. But
Hypertension.
Plan.
creatinine was stable (4)
known creatinine per family in 3 range at [facility] recently
likely DKD and possible has progressed
bp stable, holding ACEI
Lasix 40mg cont oral route, edema is much better
follow BMP
No emergent need of dialysis
Potassium 5.3 yesterday, received Lokelma labs pending
On 12/03 Dr Curiel had Long discussion with the family including the brother and the daughter. They're more concerned that her behavioral issues likely are new and this is not her baseline and they expect to see improvement with the adjustment of
the medication by psychiatric. They are hopeful that the renal function will stabilize, they're not very sure if they will agree with the dialysis but want to check with the patient first, knowing her behavior family thinks she may not agree. We
also reviewed the fact that with emotional outbursts it will be difficult to maintain on dialysis. Family understands that and I think they wanted to give her a chance to make the call.
-
-
Date of Service: December 10, 2024
CC / HPI / ROS
-
Chief Complaint:
ALBERTINA
History of Present Illness:
ALBERTINA/Cr stable
nephrotic range proteinuria
Some hyperkalemia treated with Lokelma last evening
Hemodynamically stable
Review of Systems:
Not sleeping overnight
Output not record
Labs
-
Labs:
WBC 6.7 10^3/uL (4.8-10.8) 12/04/24 05:48
RBC 3.42 10^6/uL (4.20-5.40) L 12/04/24 05:48
Hgb 9.7 g/dL (12.0-16.0) L 12/04/24 05:48
Hct 29.8 % (37.0-47.0) L 12/04/24 05:48
Plt Count 219 10^3/uL (130-400) 12/04/24 05:48
eGFR 11.22 12/09/24 07:03
Phosphorus 4.7 mg/dl (2.5-4.5) H 11/25/24 05:25
Ray-N-Hhpuiuzoqyl Pept 822 pg/ml 11/24/24 16:55
Albumin 3.3 g/dl (3.5-5.0) L 11/26/24 05:07
Physical Exam
-
Vital Signs:
Vital Signs
Temp Pulse Resp BP Pulse Ox
97.8 F 75 16 121/70 95
12/10/24 07:23 12/10/24 07:43 12/10/24 07:23 12/10/24 07:43 12/10/24 07:23
Cardiovascular:: Regular rate and rhythm
Respiratory:: Bilateral: Coarse
Lung Excursion:: Abnormal
Abdomen:: Distended, Nontender and Soft
Extremity Edema:: None: Bilateral: (trace)
Moran Catheter: No
[2024-12-10 09:35] LABS: Blood Urea Nitrogen 78 mg/dl (7-17); Calcium 8.2 mg/dl (8.4-10.2); Carbon Dioxide 31 mmol/L (22-30); Chloride 100 mmol/L (98-107); Estimated Creatinine Clearance 13 ml/min; Glucose 132 mg/dl (70-99); Potassium 4.3 mmol/L (3.5-5.1); Sodium 137 mmol/L (135-145); eGFR 11.91
--- NOTE | 2024-12-10 11:45 | W.PN.HOSP.TC ---
Today's Communication/Plan
-
SNF on DC.
Awaiting auth.
Psych recs for meds adjustment.
BP improved.
Assessment / Plan
Assessment / Plan
Toxic metabolic encephalopathy - improved
Schizoaffective disorder/Bipolar disorder
Insomnia
- Not clear what acute alteration there has been.
- Patient with chronic cognitive impairment and psychosis with recent history noting progression.
- No evidence of acute infectious process, etc to explain any new / acute decompensation.
- Depakote level WNL - 46
- TSH normal
- Status post video swallow evaluation. Speech recommending regular diet.
- Pt was getting Invega Sustenna every month although unable to be provided due to creatinine clearance is close to 10 and is contraindicated.
- Psychiatry following and currently on regimen of Abilify/Ativan. Ativan dose increased to 1mg. Abilify 2mg frequency increased to BID. Melatonin added. Psych further recs for meds adjustment
ALBERTINA on CKDIIIB
Edema
Hyperkalemia
Diabetic nephropathy and proteinuria - non nephrotic range
- No recent labs available for comparison - [facility] records showing cr close to 3.
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
- UA with 3+ albumin.
- s/p IVF and IV albumin. currently on oral lasix 40mg daily. potassium downtrended. Cr at 3.9 today
- Discussion with patient daughter on 11/25/2024 during patient hospitalization at [facility] patient was also found to have elevated creatinine.
- Patient with worsening renal function and potentially require hemodialysis support, not ideal candidate and nephrology has discussed this with patient family.
- Renal function around 4-4.2 no plan for immediate dialysis. Nephrology following.
Nonischemic myocardial injury
- Patient heart rate currently stable
- Echocardiogram EF of 70 to 75%. Normal regional wall motion. Normal right ventricular size and function. Mild aortic stenosis.
- Last cardiac cath was 2008 with normal coronaries
- Cardiology signed off
Anemia - Likely due to CKD
- Hgb slightly decreased from prior baseline (again - compared to 2021 labs).
- Follow H&H for changes. start po b12. Trial of IV iron
Primary HTN
- controlled on regimen of Norvasc/hydralazine
DM-II
Episode of hypoglycemia
- Stable.
- POC am 111. Lantus dose decreased to 12U HS
- Check A1C and 9.3.
Diarrhea / Constipation
- monitor for symptoms
- CT done in the ED this evening with no obstruction, marked constipation, etc.
- Repeat Abdomen xray with heavy stool burden. Enema with positive results.
DVT Prophylaxis: Subcut heparin
Code Status: Full
2/
Dr. Oneill discussed Goal of care discussion done with patient brother and daughter at bedside.
Discussed at length that patient have worsening renal failure and despite maximal medical therapy patient renal status remains precarious. Patient creatinine has stabilized at a higher number of 4-4.5 range, fortunately no problematic sign of
volume overload/uremia/hyperkalemia developing yet and thus have some time to monitor.
Discussed at length the complexity and health burden of patient being put on dialysis. Shared with her behavioral/psychiatric issues will be definitely an extremely difficult patient to manage and complicate her care furthermore. Both brother and
daughter understands this and hopeful that kidney function will stabilize and patient will be able to transfer to be SNF. I have clarified that this may not happen and patient may continue to deteriorate, brother/daughter both understand this
although they are not verbalizing any agreement for hospice care and would like to see how things return agent airport.
Question of psychiatric medication causing further renal deterioration discussed and psychiatry have addressed this earlier with patient family.
Patient family requested a crop or grain farmworker service which does not offer. I have provided a physical prescription for family to have third-alliance party/private crop or grain farmworker to be visiting patient while in the hospital.
PT/OT-SNF on DC. Awaiting auth. Psych recs for meds adjustment.
Anticipated Discharge: Today
Subjective/Interval History
-
Date of Service: December 10, 2024
awake
eating breakfast
Objective Data
-
Labs:
Laboratory Results
12/10/24
09:10
Sodium 137
Potassium 4.3
Chloride 100
Carbon Dioxide 31 H
BUN 78 H
Creatinine 3.9 H
Glucose 132 H
Calcium 8.2 L
Vital Signs:
Vital Signs
Temp Pulse Resp BP Pulse Ox
97.8 F 75 16 121/70 95
12/10/24 07:23 12/10/24 07:43 12/10/24 07:23 12/10/24 07:43 12/10/24 07:23
I&O
12/09/24 12/10/24 12/11/24
06:59 06:59 06:59
Intake Total 720 / 720 1060 / 1060
Output Total 550 / 550 350 / 350
Balance 170 / 170 710 / 710
Physical Exam
-
General: No Apparent Distress, Comfortable and Morbidly Obese
HEENT: Normocephalic, Atraumatic and Moist Mucous Membranes; Negative Oxygen
Respiratory: Clear to Auscultation
Cardiac: Regular Rhythm and S1/S2
GI: Soft, Nontender, Nondistended, Normal Bowel Sounds and Other (obese )
Genito-urinary: Deferred by me
Musculoskeletal: No Cyanosis
Neuro: Awake and No Motor Deficits
Psych: Calm
--- NOTE | 2024-12-10 13:04 | W.PN.UPDATE ---
Update Note
Progress Note Update
Pt seen, sleepy soundly in bed. Reviewed chart, pt noted intermittently restless at night. Abilify increased to 2 mg BID.
Imp: Schizoaffective d/o, bipolar type, appears stable, switching from Invega(stopped) to Abilify due to renal impairment
Rec: Will change Abilify dosing to 4 mg AM- HS dose may be disrupting sleep
will continue to follow
--- NOTE | 2024-12-10 13:22 | CM ---
Patient from [facility] with Hx Schizoaffective disorder/Bipolar disorder with TME, ALBERTINA. Room air. Seen by Psych. PT/OT 12/08 recommend skilled rehab.
Message to Evelin PT/OT; will need updated therapy notes today for SNF auth.
Spoke with [facility]; they can accept the patient once insurance approves.
Spoke with Rory No, [facility]; request for SNF can be faxed to [phone]---> clinical sent via [facility]. No reference # provided.
Plan [facility] once insurance auth obtained.
[2024-12-10 15:03] LABS: Glucose - Point of Care 116 mg/dl (70-99)
[2024-12-10 15:25] VITALS: BP 135/68
[2024-12-10 16:31] LABS: Glucose - Point of Care 200 mg/dl (70-99)
[2024-12-10] MEDS: NOVOLOG FLEXPEN-LOW RESISTANCE 2 UNITS SC (18:46)
[2024-12-10] MEDS: MELATONIN 5 MG PO (20:07)
[2024-12-10] MEDS: ATIVAN 1 MG PO (20:07)
[2024-12-10] MEDS: LIPITOR 20 MG PO (20:07)
[2024-12-10 21:58] LABS: Glucose - Point of Care 255 mg/dl (70-99)
[2024-12-10] MEDS: LANTUS 0.12 UNITS SC (22:52)
[2024-12-10 23:00] VITALS: BP 146/77
[2024-12-11 06:00] VITALS: BMI 37.2
[2024-12-11 06:51] LABS: % Basophils 0.4 % (0-2); % Immature Granulocytes 3.9 % (0-0.5); % Lymphocytes 9.6 % (20.5-51.1); % Neutrophils 74.1 % (42.2-75.2); Absolute Eosinophils 0.1 10^3/uL (0-0.7); Absolute Immature Granulocytes 0.2 10^3/uL (0-0.05); Absolute Lymphocytes 0.5 10^3/uL (1.2-3.4); Absolute Monocytes 0.6 10^3/uL (0.1-0.6); Absolute Neutrophils 4.2 10^3/uL (1.4-6.5); Hematocrit 27.6 % (37.0-47.0); Hemoglobin 8.7 g/dL (12.0-16.0); Mean Corp Hgb Conc. 31.5 g/dL (33.0-37.0); Mean Corpuscular Hgb 28.2 pg (27.0-31.0); Mean Corpuscular Volume 89.3 fL (81.0-99.0); Nucleated Red Blood Cells % 0 %; Platelet Count 141 10^3/uL (130-400); Red Blood Cell Count 3.09 10^6/uL (4.20-5.40); Red Cell Dist. Width 15.4 % (11.5-14.5); White Blood Cell Count 5.6 10^3/uL (4.8-10.8)
[2024-12-11 07:31] LABS: Blood Urea Nitrogen 77 mg/dl (7-17); Calcium 8.4 mg/dl (8.4-10.2); Carbon Dioxide 31 mmol/L (22-30); Chloride 103 mmol/L (98-107); Estimated Creatinine Clearance 13 ml/min; Glucose 112 mg/dl (70-99); Potassium 4.3 mmol/L (3.5-5.1); Sodium 140 mmol/L (135-145); eGFR 12.29
[2024-12-11 07:45] VITALS: BP 169/76
[2024-12-11 07:56] LABS: Glucose - Point of Care 111 mg/dl (70-99)
[2024-12-11] MEDS: NOVOLOG FLEXPEN-LOW RESISTANCE SC ×2 (08:54→16:20)
[2024-12-11] MEDS: DEPAKOTE SPRINKLE 250 MG PO ×3 (08:57→21:09)
[2024-12-11] MEDS: LASIX 40 MG PO (08:57)
[2024-12-11] MEDS: LOW STRENGTH ASPIRIN 81 MG PO (08:57)
[2024-12-11] MEDS: ABILIFY 4 MG PO (08:57)
[2024-12-11] MEDS: VITAMIN B-12 1000 MCG PO (08:58)
[2024-12-11] MEDS: ATIVAN 0.5 MG PO ×3 (08:58→21:08)
[2024-12-11] MEDS: NORVASC 10 MG PO (08:58)
[2024-12-11] MEDS: HEPARIN 5000 UNITS SC ×3 (08:58→23:10)
[2024-12-11] MEDS: APRESOLINE 50 MG PO ×2 (08:58→21:08)
[2024-12-11] MEDS: DESENEX/MITRAZOL/ZEASORB 1 APPLIC TOPICAL ×2 (08:59→21:09)
--- NOTE | 2024-12-11 11:27 | W.PN.HOSP.TC ---
Today's Communication/Plan
-
await placement
monitor BP
Assessment / Plan
Assessment / Plan
Toxic metabolic encephalopathy - improved
Schizoaffective disorder/Bipolar disorder
Insomnia
- Not clear what acute alteration there has been.
- Patient with chronic cognitive impairment and psychosis with recent history noting progression.
- No evidence of acute infectious process, etc to explain any new / acute decompensation.
- Depakote level WNL - 46
- TSH normal
- Status post video swallow evaluation. Speech recommending regular diet.
- Pt was getting Invega Sustenna every month although unable to be provided due to creatinine clearance is close to 10 and is contraindicated.
- Psychiatry following and currently on regimen of Abilify/Ativan. Ativan dose increased to 1mg. Abilify adjusted to 4mg daily. Melatonin added. Psych further recs for meds adjustment
ALBERTINA on CKDIIIB
Edema
Hyperkalemia
Diabetic nephropathy and proteinuria - non nephrotic range
- No recent labs available for comparison - [facility] records showing cr close to 3.
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
- UA with 3+ albumin.
- s/p IVF and IV albumin. currently on oral lasix 40mg daily. potassium downtrended. Cr at 3.8 today
- Discussion with patient daughter on 11/25/2024 during patient hospitalization at [facility] patient was also found to have elevated creatinine.
- Patient with worsening renal function and potentially require hemodialysis support, not ideal candidate and nephrology has discussed this with patient family.
- Renal function around 4-4.2 no plan for immediate dialysis. Nephrology following.
Nonischemic myocardial injury
- Patient heart rate currently stable
- Echocardiogram EF of 70 to 75%. Normal regional wall motion. Normal right ventricular size and function. Mild aortic stenosis.
- Last cardiac cath was 2008 with normal coronaries
- Cardiology signed off
Anemia - Likely due to CKD
- Hgb slightly decreased from prior baseline (again - compared to 2021 labs).
- Follow H&H for changes. start po b12.
Primary HTN
- controlled on regimen of Norvasc/hydralazine. May need uptitration of hydaralazine.
DM-II
Episode of hypoglycemia
- Stable.
- POC am 111. Lantus dose decreased to 12U HS
- Check A1C and 9.3.
Diarrhea / Constipation
- monitor for symptoms
- CT done in the ED this evening with no obstruction, marked constipation, etc.
- Repeat Abdomen xray with heavy stool burden. Enema with positive results.
COVID exposure with aide visiting
-Check COVID
DVT Prophylaxis: Subcut heparin
Code Status: Full
12/[address] Oneill discussed Goal of care discussion done with patient brother and daughter at bedside.
Discussed at length that patient have worsening renal failure and despite maximal medical therapy patient renal status remains precarious. Patient creatinine has stabilized at a higher number of 4-4.5 range, fortunately no problematic sign of
volume overload/uremia/hyperkalemia developing yet and thus have some time to monitor.
Discussed at length the complexity and health burden of patient being put on dialysis. Shared with her behavioral/psychiatric issues will be definitely an extremely difficult patient to manage and complicate her care furthermore. Both brother and
daughter understands this and hopeful that kidney function will stabilize and patient will be able to transfer to be SNF. I have clarified that this may not happen and patient may continue to deteriorate, brother/daughter both understand this
although they are not verbalizing any agreement for hospice care and would like to see how things turnaround planner.
Question of psychiatric medication causing further renal deterioration discussed and psychiatry have addressed this earlier with patient family.
Patient family requested a drying oven attendant service which does not offer. I have provided a physical prescription for family to have third-libertarian/private drying oven attendant to be visiting patient while in the hospital.
PT/OT-SNF on DC. Awaiting auth. Psych recs for meds adjustment.
Anticipated Discharge: Today
Subjective/Interval History
-
Date of Service: December 11, 2024
states she is awaiting her breakfast
having bm
no chest pain or sob
calm
Objective Data
-
Labs:
Laboratory Results
12/11/24
06:26
WBC 5.6
Hgb 8.7 L
Hct 27.6 L
Plt Count 141
Sodium 140
Potassium 4.3
Chloride 103
Carbon Dioxide 31 H
BUN 77 H
Creatinine 3.8 H
Glucose 112 H
Calcium 8.4
Vital Signs:
Vital Signs
Temp Pulse Resp BP Pulse Ox
97.4 F 64 20 169/76 98
12/11/24 07:45 12/11/24 08:58 12/11/24 07:45 12/11/24 08:58 12/11/24 07:45
I&O
12/10/24 12/11/24 12/12/24
06:59 06:59 06:59
Intake Total 1060 / 1060 920 / 920
Output Total 350 / 350 500 / 500
Balance 710 / 710 420 / 420
--- NOTE | 2024-12-11 11:30 | W.PN.UPDATE ---
Update Note
Progress Note Update
Pt sitting up on side of bed, eating breakfast, asking for more food. Pt appears mildly groggy and disheveled. Pt tolerating Abilify, now at 4 mg daily. Pt has remained calm, with no signs of active ari or psychosis. Pt known to me from
outpatient follow-up at [facility], presents at her usual baseline, with chronic complaints about her care and life situation. Creat 3.8 today, trending slightly better the last few days.
Imp: Schizoaffective d/o, bipolar type, appears stable, switched from Invega(stopped) to Abilify due to renal impairment
Rec: Will titrate Abilify to 5 mg AM, continue Depakote, Ativan
will continue to follow
[2024-12-11 11:32] LABS: COVID-19 Antigen Negative (Negative)
--- NOTE | 2024-12-11 11:45 | W.PN.NEPH.PH ---
Today's Communication / Plan
-
Observe
Maintain oral Lasix
No need to check labs every day
Assessment/Plan
-
69y F with PMH significant for psychiatric disorder, DM-II, obesity and polyneuropathy who presents to ED from local [place] for evaluation of altered mental status.
renal consul for acute kidney injury.
Impression.
Acute or chronic kidney disease with a creatinine of 1.42 in 2021 no more recent labs and presents with a creatinine greater of 3.
Anemia without thrombocytopenia.
Altered mental status without signs of infection.
proteinuria in the setting of the diabetes with an [place]arco. But
Hypertension.
Plan.
creatinine was stable (3.8)
known creatinine per family in 3 range at [facility] recently
likely DKD and possible has progressed
bp stable, holding ACEI
Lasix 40mg cont oral route, edema is much better
No emergent need of dialysis
Potassium 4.3
On 12/03 Dr Curiel had Long discussion with the family including the brother and the daughter. They're more concerned that her behavioral issues likely are new and this is not her baseline and they expect to see improvement with the adjustment of
the medication by psychiatric. They are hopeful that the renal function will stabilize, they're not very sure if they will agree with the dialysis but want to check with the patient first, knowing her behavior family thinks she may not agree. We
also reviewed the fact that with emotional outbursts it will be difficult to maintain on dialysis. Family understands that and I think they wanted to give her a chance to make the call.
-
-
Date of Service: December 11, 2024
CC / HPI / ROS
-
Chief Complaint:
ALBERTINA
History of Present Illness:
ALBERTINA/Cr stable 3.8
nephrotic range proteinuria
K stable
Hemodynamically stable
Review of Systems:
Not sleeping overnight
Output not record
Labs
-
Labs:
WBC 5.6 10^3/uL (4.8-10.8) 12/11/24 06:26
RBC 3.09 10^6/uL (4.20-5.40) L 12/11/24 06:26
Hgb 8.7 g/dL (12.0-16.0) L 12/11/24 06:26
Hct 27.6 % (37.0-47.0) L 12/11/24 06:26
Plt Count 141 10^3/uL (130-400) 12/11/24 06:26
Sodium 140 mmol/L (135-145) 12/11/24 06:26
Potassium 4.3 mmol/L (3.5-5.1) 12/11/24 06:26
Chloride 103 mmol/L (98-107) 12/11/24 06:26
Carbon Dioxide 31 mmol/L (22-30) H 12/11/24 06:26
BUN 77 mg/dl (7-17) H 12/11/24 06:26
Creatinine 3.8 mg/dL (0.6-1.0) H 12/11/24 06:26
eGFR 12.29 12/11/24 06:26
Glucose 112 mg/dl (70-99) H 12/11/24 06:26
Calcium 8.4 mg/dl (8.4-10.2) 12/11/24 06:26
Phosphorus 4.7 mg/dl (2.5-4.5) H 11/25/24 05:25
Paa-E-Dyocmdbqoqu Pept 822 pg/ml 11/24/24 16:55
Albumin 3.3 g/dl (3.5-5.0) L 11/26/24 05:07
Physical Exam
-
Vital Signs:
Vital Signs
Temp Pulse Resp BP Pulse Ox
97.4 F 64 20 169/76 98
12/11/24 07:45 12/11/24 08:58 12/11/24 07:45 12/11/24 08:58 12/11/24 07:45
Cardiovascular:: Regular rate and rhythm
Respiratory:: Bilateral: Coarse
Lung Excursion:: Abnormal
Abdomen:: Distended, Nontender and Soft
Extremity Edema:: None: Bilateral: (trace)
Moran Catheter: No
[2024-12-11 12:34] LABS: Glucose - Point of Care 230 mg/dl (70-99)
[2024-12-11] MEDS: NOVOLOG FLEXPEN-LOW RESISTANCE 2 UNITS SC (12:43)
[2024-12-11 15:45] VITALS: BP 118/49
[2024-12-11 16:17] LABS: Glucose - Point of Care 113 mg/dl (70-99)
[2024-12-11 17:27] LABS: Glucose - Point of Care 183 mg/dl (70-99)
[2024-12-11 21:08] LABS: Glucose - Point of Care 198 mg/dl (70-99)
[2024-12-11] MEDS: LIPITOR 20 MG PO (21:08)
[2024-12-11] MEDS: MELATONIN 5 MG PO (21:08)
[2024-12-11] MEDS: LANTUS 0.12 UNITS SC (21:09)
[2024-12-11 23:00] VITALS: BP 142/77
[2024-12-11] MEDS: TYLENOL 650 MG PO (23:37)
--- NOTE | 2024-12-11 23:39 | PTCARENOTE ---
pt complaining of back pain. Pt constantly getting up and down. PRN Tylenol administered as ordered. Will continue to monitor.
[2024-12-12 06:00] VITALS: BMI 37.4
[2024-12-12 07:10] VITALS: BP 123/61
[2024-12-12 07:27] LABS: Blood Urea Nitrogen 73 mg/dl (7-17); Calcium 8.9 mg/dl (8.4-10.2); Carbon Dioxide 31 mmol/L (22-30); Chloride 101 mmol/L (98-107); Estimated Creatinine Clearance 13 ml/min; Glucose 93 mg/dl (70-99); Potassium 4.4 mmol/L (3.5-5.1); Sodium 140 mmol/L (135-145); eGFR 11.91
[2024-12-12 07:49] LABS: Glucose - Point of Care 90 mg/dl (70-99)
[2024-12-12] MEDS: NOVOLOG FLEXPEN-LOW RESISTANCE SC ×2 (07:50→12:43)
[2024-12-12] MEDS: APRESOLINE 50 MG PO ×2 (08:28→21:22)
[2024-12-12] MEDS: NORVASC 10 MG PO (08:28)
[2024-12-12] MEDS: DEPAKOTE SPRINKLE 250 MG PO ×3 (08:28→21:23)
[2024-12-12] MEDS: DESENEX/MITRAZOL/ZEASORB 1 APPLIC TOPICAL ×2 (08:29→21:24)
[2024-12-12] MEDS: HEPARIN 5000 UNITS SC ×3 (08:29→23:08)
[2024-12-12] MEDS: VITAMIN B-12 1000 MCG PO (08:29)
[2024-12-12] MEDS: ABILIFY 5 MG PO (08:29)
[2024-12-12] MEDS: LASIX 40 MG PO (08:29)
[2024-12-12] MEDS: LOW STRENGTH ASPIRIN 81 MG PO (08:29)
[2024-12-12] MEDS: ATIVAN 0.5 MG PO ×3 (08:29→21:23)
--- NOTE | 2024-12-12 10:18 | W.PN.NEPH.PH ---
Today's Communication / Plan
-
Continue supportive care, BMP every other day would be fine
Assessment/Plan
-
69y F with PMH significant for psychiatric disorder, DM-II, obesity and polyneuropathy who presents to ED from local [place] for evaluation of altered mental status.
renal consul for acute kidney injury.
Impression.
Acute or chronic kidney disease with a creatinine of 1.42 in 2021 no more recent labs and presents with a creatinine greater of 3.
Anemia without thrombocytopenia.
Altered mental status without signs of infection.
proteinuria in the setting of the diabetes with an [place]arco. But
Hypertension.
Plan.
creatinine was stable (3.8)
known creatinine per family in 3 range at [facility] recently
likely DKD and possible has progressed
bp stable, holding ACEI
Lasix 40mg cont oral route, edema is much better
No emergent need of dialysis
Potassium 4.4
On 12/03 Dr Curiel had Long discussion with the family including the brother and the daughter. They're more concerned that her behavioral issues likely are new and this is not her baseline and they expect to see improvement with the adjustment of
the medication by psychiatric. They are hopeful that the renal function will stabilize, they're not very sure if they will agree with the dialysis but want to check with the patient first, knowing her behavior family thinks she may not agree. We
also reviewed the fact that with emotional outbursts it will be difficult to maintain on dialysis. Family understands that and I think they wanted to give her a chance to make the call.
-
-
Date of Service: December 12, 2024
CC / HPI / ROS
-
Chief Complaint:
ALBERTINA
History of Present Illness:
ALBERTINA/Cr stable 3.8
nephrotic range proteinuria
K stable
Hemodynamically stable
Review of Systems:
Not sleeping overnight
Output not record
Labs
-
Labs:
WBC 5.6 10^3/uL (4.8-10.8) 12/11/24 06:26
RBC 3.09 10^6/uL (4.20-5.40) L 12/11/24 06:26
Hgb 8.7 g/dL (12.0-16.0) L 12/11/24 06:26
Hct 27.6 % (37.0-47.0) L 12/11/24 06:26
Plt Count 141 10^3/uL (130-400) 12/11/24 06:26
Sodium 140 mmol/L (135-145) 12/12/24 06:47
Potassium 4.4 mmol/L (3.5-5.1) 12/12/24 06:47
Chloride 101 mmol/L (98-107) 12/12/24 06:47
Carbon Dioxide 31 mmol/L (22-30) H 12/12/24 06:47
BUN 73 mg/dl (7-17) H 12/12/24 06:47
Creatinine 3.9 mg/dL (0.6-1.0) H 12/12/24 06:47
eGFR 11.91 12/12/24 06:47
Glucose 93 mg/dl (70-99) 12/12/24 06:47
Calcium 8.9 mg/dl (8.4-10.2) 12/12/24 06:47
Phosphorus 4.7 mg/dl (2.5-4.5) H 11/25/24 05:25
Qcg-T-Thvougdecft Pept 822 pg/ml 11/24/24 16:55
Albumin 3.3 g/dl (3.5-5.0) L 11/26/24 05:07
Physical Exam
-
Vital Signs:
Vital Signs
Temp Pulse Resp BP Pulse Ox
97.6 F 65 18 123/61 98
12/12/24 07:10 12/12/24 08:28 12/12/24 07:10 12/12/24 08:28 12/12/24 07:10
Cardiovascular:: Regular rate and rhythm
Respiratory:: Bilateral: Coarse
Lung Excursion:: Abnormal
Abdomen:: Distended, Nontender and Soft
Extremity Edema:: None: Bilateral: (trace)
Moran Catheter: No
--- NOTE | 2024-12-12 11:30 | W.PN.HOSP.TC ---
Today's Communication/Plan
-
Await for auth
medically stable
Psych recs
monitor POC
oob/rehab
Assessment / Plan
Assessment / Plan
Toxic metabolic encephalopathy - improved
Schizoaffective disorder/Bipolar disorder
Insomnia
- Not clear what acute alteration there has been.
- Patient with chronic cognitive impairment and psychosis with recent history noting progression.
- No evidence of acute infectious process, etc to explain any new / acute decompensation.
- Depakote level WNL - 46
- TSH normal
- Status post video swallow evaluation. Speech recommending regular diet.
- Pt was getting Invega Sustenna every month although unable to be provided due to creatinine clearance is close to 10 and is contraindicated.
- Psychiatry following and currently on regimen of Abilify/Ativan. Ativan dose increased to 1mg. Abilify adjusted to 4mg daily. Melatonin added. Psych further recs for meds adjustment for insomnia
ALBERTINA on CKDIIIB
Edema
Hyperkalemia
Diabetic nephropathy and proteinuria - non nephrotic range
- No recent labs available for comparison - [facility] records showing cr close to 3.
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
- UA with 3+ albumin.
- s/p IVF and IV albumin. currently on oral lasix 40mg daily. potassium downtrended.
- Discussion with patient daughter on 11/25/2024 during patient hospitalization at [facility] patient was also found to have elevated creatinine.
- Patient with worsening renal function and potentially require hemodialysis support, not ideal candidate and nephrology has discussed this with patient family.
- Renal function sems to have plateau. BMP q2days. no plan for immediate dialysis. Nephrology following.
Nonischemic myocardial injury
- Patient heart rate currently stable
- Echocardiogram EF of 70 to 75%. Normal regional wall motion. Normal right ventricular size and function. Mild aortic stenosis.
- Last cardiac cath was 2008 with normal coronaries
- Cardiology signed off
Anemia - Likely due to CKD
- Hgb slightly decreased from prior baseline (again - compared to 2021 labs).
- Follow H&H for changes. start po b12.
Primary HTN
- controlled on regimen of Norvasc/hydralazine. May need uptitration of hydaralazine.
DM-II
Episode of hypoglycemia
- Stable.
- POC am 90. Lantus dose decreased to 12U HS
- Check A1C and 9.3.
Diarrhea / Constipation
- monitor for symptoms
- CT done in the ED this evening with no obstruction, marked constipation, etc.
- Cont with bowel regimen
COVID exposure with aide visiting on 12/10/24
-Check COVID -negative.
DVT Prophylaxis: Subcut heparin
Code Status: Full
12/[address] Oneill discussed Goal of care discussion done with patient brother and daughter at bedside.
Discussed at length that patient have worsening renal failure and despite maximal medical therapy patient renal status remains precarious. Patient creatinine has stabilized at a higher number of 4-4.5 range, fortunately no problematic sign of
volume overload/uremia/hyperkalemia developing yet and thus have some time to monitor.
Discussed at length the complexity and health burden of patient being put on dialysis. Shared with her behavioral/psychiatric issues will be definitely an extremely difficult patient to manage and complicate her care furthermore. Both brother and
daughter understands this and hopeful that kidney function will stabilize and patient will be able to transfer to be SNF. I have clarified that this may not happen and patient may continue to deteriorate, brother/daughter both understand this
although they are not verbalizing any agreement for hospice care and would like to see how things hand turner.
Question of psychiatric medication causing further renal deterioration discussed and psychiatry have addressed this earlier with patient family.
Patient family requested a dice table person service which does not offer. I have provided a physical prescription for family to have third-alliance party/private dice table person to be visiting patient while in the hospital.
PT/OT-SNF on DC. Awaiting auth. Psych recs for meds adjustment.
Anticipated Discharge: Today
Subjective/Interval History
-
Date of Service: December 12, 2024
states she wants more food
did sleep much overnight
Objective Data
-
Labs:
Laboratory Results
12/12/24
06:47
Sodium 140
Potassium 4.4
Chloride 101
Carbon Dioxide 31 H
BUN 73 H
Creatinine 3.9 H
Glucose 93
Calcium 8.9
Vital Signs:
Vital Signs
Temp Pulse Resp BP Pulse Ox
97.6 F 65 18 123/61 98
12/12/24 07:10 12/12/24 08:28 12/12/24 07:10 12/12/24 08:28 12/12/24 07:10
I&O
12/11/24 12/12/24 12/13/24
06:59 06:59 06:59
Intake Total 920 / 920 1620 / 1620
Output Total 500 / 500
Balance 420 / 420 1620 / 1620
Physical Exam
-
General: No Apparent Distress, Comfortable and Morbidly Obese
HEENT: Normocephalic, Atraumatic and Moist Mucous Membranes; Negative Oxygen
Respiratory: Clear to Auscultation
Cardiac: Regular Rhythm and S1/S2
GI: Soft, Nontender, Nondistended, Normal Bowel Sounds and Other (obese )
Genito-urinary: Deferred by me
Musculoskeletal: No Cyanosis
Neuro: Awake and No Motor Deficits
Psych: Calm
[2024-12-12 12:32] LABS: Glucose - Point of Care 108 mg/dl (70-99)
[2024-12-12 16:00] VITALS: BP 128/70
[2024-12-12 16:47] LABS: Glucose - Point of Care 169 mg/dl (70-99)
[2024-12-12] MEDS: NOVOLOG FLEXPEN-LOW RESISTANCE 1 UNITS SC (18:21)
[2024-12-12] MEDS: MELATONIN 5 MG PO (21:22)
[2024-12-12] MEDS: LIPITOR 20 MG PO (21:22)
[2024-12-12] MEDS: LANTUS 0.12 UNITS SC (21:23)
[2024-12-12] MEDS: SENOKOT-S 1 TABLET PO (21:23)
[2024-12-12 21:53] LABS: Glucose - Point of Care 140 mg/dl (70-99)
[2024-12-12] MEDS: TYLENOL 650 MG PO (23:08)
[2024-12-12 23:22] VITALS: BP 161/68
[2024-12-13] MEDS: TYLENOL 650 MG PO ×2 (05:21→23:41)
[2024-12-13 06:00] VITALS: BMI 37.2
[2024-12-13 07:00] VITALS: BP 170/74
[2024-12-13] MEDS: APRESOLINE 50 MG PO ×2 (07:24→21:28)
[2024-12-13] MEDS: ATIVAN 0.5 MG PO ×3 (07:24→21:30)
[2024-12-13] MEDS: ABILIFY 5 MG PO (07:25)
[2024-12-13] MEDS: LASIX 40 MG PO (07:25)
[2024-12-13] MEDS: NORVASC 10 MG PO (07:25)
[2024-12-13] MEDS: SENOKOT-S 1 TABLET PO ×2 (07:25→21:28)
[2024-12-13] MEDS: LOW STRENGTH ASPIRIN 81 MG PO (07:25)
[2024-12-13] MEDS: VITAMIN B-12 1000 MCG PO (07:25)
[2024-12-13] MEDS: HEPARIN 5000 UNITS SC ×3 (07:26→21:34)
[2024-12-13] MEDS: DEPAKOTE SPRINKLE 250 MG PO ×3 (07:26→21:29)
[2024-12-13] MEDS: DESENEX/MITRAZOL/ZEASORB 1 APPLIC TOPICAL ×2 (07:27→21:34)
[2024-12-13 07:59] LABS: Glucose - Point of Care 95 mg/dl (70-99)
[2024-12-13] MEDS: NOVOLOG FLEXPEN-LOW RESISTANCE SC ×2 (08:42→16:53)
--- NOTE | 2024-12-13 09:47 | CM ---
Called [facility] [phone] about pts clinical faxed on 12/10/24 with no call back with [facility].
notified
Pts policy number [id number]
PLAN Need auth figueroa Beardsley
--- NOTE | 2024-12-13 10:58 | W.PN.HOSP.TC ---
Today's Communication/Plan
-
Monitor blood pressure
Monitor POC
Psych rec
Awaiting placement
Assessment / Plan
Assessment / Plan
Toxic metabolic encephalopathy - improved
Schizoaffective disorder/Bipolar disorder
Insomnia
- Not clear what acute alteration there has been.
- Patient with chronic cognitive impairment and psychosis with recent history noting progression.
- No evidence of acute infectious process, etc to explain any new / acute decompensation.
- Depakote level WNL - 46
- TSH normal
- Status post video swallow evaluation. Speech recommending regular diet.
- Pt was getting Invega Sustenna every month although unable to be provided due to creatinine clearance is close to 10 and is contraindicated.
- Psychiatry following and currently on regimen of Abilify/Ativan. Ativan dose increased to 1mg. Abilify adjusted to 4mg daily. Melatonin added. Psych further recs for meds adjustment for insomnia
ALBERTINA on CKDIIIB
Edema
Hyperkalemia
Diabetic nephropathy and proteinuria - non nephrotic range
- No recent labs available for comparison - [facility] records showing cr close to 3.
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
- UA with 3+ albumin.
- s/p IVF and IV albumin. currently on oral lasix 40mg daily. potassium downtrended.
- Discussion with patient daughter on 11/25/2024 during patient hospitalization at [facility] patient was also found to have elevated creatinine.
- Patient with worsening renal function and potentially require hemodialysis support, not ideal candidate and nephrology has discussed this with patient family.
- Renal function seems to have plateau. BMP q2days. no plan for immediate dialysis. Nephrology following.
Primary HTN
- controlled on regimen of Norvasc/hydralazine. May need uptitration of hydaralazine.
Nonischemic myocardial injury
- Patient heart rate currently stable
- Echocardiogram EF of 70 to 75%. Normal regional wall motion. Normal right ventricular size and function. Mild aortic stenosis.
- Last cardiac cath was 2008 with normal coronaries
- Cardiology signed off
Anemia - Likely due to CKD
- Hgb slightly decreased from prior baseline (again - compared to 2021 labs).
- Follow H&H for changes. start po b12.
DM-II
Episode of hypoglycemia
- Stable.
- POC am 95. Lantus dose decreased to 12U HS. Start Premeal 2 units and uptitrate as needed
- Check A1C and 9.3.
Diarrhea / Constipation
- monitor for symptoms
- CT done in the ED this evening with no obstruction, marked constipation, etc.
- Cont with bowel regimen
COVID exposure with aide visiting on 12/10/24
-Check COVID -negative.
DVT Prophylaxis: Subcut heparin
Code Status: Full
PT/OT-SNF on DC. Awaiting auth. CM aware. Psych recs for meds adjustment.
Anticipated Discharge: Today
Subjective/Interval History
-
Date of Service: December 13, 2024
Tolerating diet
States did not sleep much overnight
Wants to go to rehab soon
Objective Data
-
Vital Signs:
Vital Signs
Temp Pulse Resp BP Pulse Ox
97.3 F 64 18 170/74 98
12/13/24 07:00 12/13/24 07:25 12/13/24 07:00 12/13/24 07:25 12/13/24 07:00
I&O
12/12/24 12/13/24 12/14/24
06:59 06:59 06:59
Intake Total 1620 / 1620 960 / 960
Balance 1620 / 1620 960 / 960
Physical Exam
-
General: No Apparent Distress, Comfortable and Morbidly Obese
HEENT: Normocephalic, Atraumatic and Moist Mucous Membranes; Negative Oxygen
Respiratory: Clear to Auscultation
Cardiac: Regular Rhythm and S1/S2
GI: Soft, Nontender, Nondistended, Normal Bowel Sounds and Other (obese )
Genito-urinary: Deferred by me
Musculoskeletal: No Cyanosis
Neuro: Awake and No Motor Deficits
Psych: Calm
Data Reviewed
-
Total Time Spent with Patient (in minutes): 55
--- NOTE | 2024-12-13 11:09 | W.PN.UPDATE ---
Update Note
Progress Note Update
Psychiatry follow up. Chart reviewed. Patient is lying in bed and states she she waiting for lunch. She reports diffuse body pain and states she is sick of being in the hospital. She reports tolerating psychiatric medications well. States she sees
Dr. Ulrich as an outpatient at [facility].
12/05 VPA 63.3
MSE- limited eye contact. impoverished speech. goal-directed. No signs of ari or psychosis. Denies SI/HI.
A/P- Schizoaffective d/o, bipolar type, stable
Continue Abilify 5 mg AM (dose increased yesterday), continue Depakote 250mg TID, Ativan 0.5mg TID and melatonin 5mg HS. Psychiatry will follow.
[2024-12-13 11:25] LABS: Glucose - Point of Care 181 mg/dl (70-99)
[2024-12-13] MEDS: NOVOLOG FLEXPEN 2 UNITS SC ×2 (11:26→16:19)
[2024-12-13] MEDS: NOVOLOG FLEXPEN-LOW RESISTANCE 1 UNITS SC (11:28)
--- NOTE | 2024-12-13 12:17 | W.PN.NEPH.PH ---
Today's Communication / Plan
-
Continue supportive care. Check BMP. Okay for discharge from renal standpoint
Assessment/Plan
-
69y F with PMH significant for psychiatric disorder, DM-II, obesity and polyneuropathy who presents to ED from local [place] for evaluation of altered mental status.
renal consul for acute kidney injury.
Impression.
Acute or chronic kidney disease with a creatinine of 1.42 in 2021 no more recent labs and presents with a creatinine greater of 3.
Anemia without thrombocytopenia.
Altered mental status without signs of infection.
proteinuria in the setting of the diabetes with an [place]arco. But
Hypertension.
Plan.
creatinine was stable (3.8)
known creatinine per family in 3 range at [facility] recently
likely DKD and possible has progressed
bp stable, holding ACEI
Lasix 40mg cont oral route, edema is much better
No emergent need of dialysis
Remained stable no changes
On 12/03 Dr Curiel had Long discussion with the family including the brother and the daughter. They're more concerned that her behavioral issues likely are new and this is not her baseline and they expect to see improvement with the adjustment of
the medication by psychiatric. They are hopeful that the renal function will stabilize, they're not very sure if they will agree with the dialysis but want to check with the patient first, knowing her behavior family thinks she may not agree. We
also reviewed the fact that with emotional outbursts it will be difficult to maintain on dialysis. Family understands that and I think they wanted to give her a chance to make the call.
-
-
Date of Service: December 13, 2024
CC / HPI / ROS
-
Chief Complaint:
ALBERTINA
History of Present Illness:
ALBERTINA/Cr stable 3.8
nephrotic range proteinuria
K stable
Hemodynamically stable
Review of Systems:
Not sleeping overnight
Output not record
Labs
-
Labs:
WBC 5.6 10^3/uL (4.8-10.8) 12/11/24 06:26
RBC 3.09 10^6/uL (4.20-5.40) L 12/11/24 06:26
Hgb 8.7 g/dL (12.0-16.0) L 12/11/24 06:26
Hct 27.6 % (37.0-47.0) L 12/11/24 06:26
Plt Count 141 10^3/uL (130-400) 12/11/24 06:26
Sodium 140 mmol/L (135-145) 12/12/24 06:47
Potassium 4.4 mmol/L (3.5-5.1) 12/12/24 06:47
Chloride 101 mmol/L (98-107) 12/12/24 06:47
Carbon Dioxide 31 mmol/L (22-30) H 12/12/24 06:47
BUN 73 mg/dl (7-17) H 12/12/24 06:47
Creatinine 3.9 mg/dL (0.6-1.0) H 12/12/24 06:47
eGFR 11.91 12/12/24 06:47
Glucose 93 mg/dl (70-99) 12/12/24 06:47
Calcium 8.9 mg/dl (8.4-10.2) 12/12/24 06:47
Phosphorus 4.7 mg/dl (2.5-4.5) H 11/25/24 05:25
Wqf-H-Bdhratnvlyv Pept 822 pg/ml 11/24/24 16:55
Albumin 3.3 g/dl (3.5-5.0) L 11/26/24 05:07
Physical Exam
-
Vital Signs:
Vital Signs
Temp Pulse Resp BP Pulse Ox
97.3 F 64 18 170/74 98
12/13/24 07:00 12/13/24 07:25 12/13/24 07:00 12/13/24 07:25 12/13/24 07:00
Cardiovascular:: Regular rate and rhythm
Respiratory:: Bilateral: Coarse
Lung Excursion:: Abnormal
Abdomen:: Distended, Nontender and Soft
Extremity Edema:: None: Bilateral: (trace)
Moran Catheter: No
[2024-12-13 15:00] VITALS: BP 138/61
[2024-12-13 16:50] LABS: Glucose - Point of Care 131 mg/dl (70-99)
[2024-12-13] MEDS: MELATONIN 5 MG PO (21:28)
[2024-12-13] MEDS: LIPITOR 20 MG PO (21:29)
[2024-12-13] MEDS: LANTUS 0.12 UNITS SC (21:30)
[2024-12-13 21:55] LABS: Glucose - Point of Care 166 mg/dl (70-99)
[2024-12-13 23:42] VITALS: BP 139/53
[2024-12-14 06:00] VITALS: BMI 37.0
[2024-12-14 07:00] VITALS: BP 127/76
[2024-12-14 07:00] LABS: % Basophils 0.4 % (0-2); % Eosinophils 2.2 % (0-6); % Lymphocytes 18.8 % (20.5-51.1); % Monocytes 14.1 % (1.7-9.3); % Neutrophils 60.5 % (42.2-75.2); Absolute Eosinophils 0.1 10^3/uL (0-0.7); Absolute Immature Granulocytes 0.2 10^3/uL (0-0.05); Absolute Lymphocytes 0.8 10^3/uL (1.2-3.4); Absolute Monocytes 0.6 10^3/uL (0.1-0.6); Absolute Neutrophils 2.7 10^3/uL (1.4-6.5); Hematocrit 26.9 % (37.0-47.0); Hemoglobin 8.8 g/dL (12.0-16.0); Mean Corp Hgb Conc. 32.7 g/dL (33.0-37.0); Mean Corpuscular Hgb 29.3 pg (27.0-31.0); Mean Corpuscular Volume 89.7 fL (81.0-99.0); Nucleated Red Blood Cells % 0 %; Platelet Count 128 10^3/uL (130-400); Red Cell Dist. Width 15.4 % (11.5-14.5); White Blood Cell Count 4.5 10^3/uL (4.8-10.8)
[2024-12-14 07:31] LABS: Blood Urea Nitrogen 68 mg/dl (7-17); Calcium 8.6 mg/dl (8.4-10.2); Carbon Dioxide 29 mmol/L (22-30); Chloride 104 mmol/L (98-107); Estimated Creatinine Clearance 13 ml/min; Glucose 89 mg/dl (70-99); Potassium 4.2 mmol/L (3.5-5.1); Sodium 138 mmol/L (135-145); eGFR 12.29
[2024-12-14 07:50] LABS: Glucose - Point of Care 92 mg/dl (70-99)
[2024-12-14] MEDS: NOVOLOG FLEXPEN-LOW RESISTANCE SC ×2 (08:10→11:12)
[2024-12-14] MEDS: SENOKOT-S 1 TABLET PO (08:11)
[2024-12-14] MEDS: APRESOLINE 50 MG PO ×2 (08:11→21:49)
[2024-12-14] MEDS: DEPAKOTE SPRINKLE 250 MG PO ×3 (08:11→21:52)
[2024-12-14] MEDS: LASIX 40 MG PO (08:11)
[2024-12-14] MEDS: LOW STRENGTH ASPIRIN 81 MG PO (08:11)
[2024-12-14] MEDS: VITAMIN B-12 1000 MCG PO (08:11)
[2024-12-14] MEDS: ABILIFY 5 MG PO (08:11)
[2024-12-14] MEDS: ATIVAN 0.5 MG PO ×3 (08:11→21:51)
[2024-12-14] MEDS: NORVASC 10 MG PO (08:11)
[2024-12-14] MEDS: DESENEX/MITRAZOL/ZEASORB 1 APPLIC TOPICAL ×2 (08:12→21:54)
[2024-12-14] MEDS: HEPARIN 5000 UNITS SC ×2 (08:12→17:12)
[2024-12-14] MEDS: NOVOLOG FLEXPEN 2 UNITS SC ×3 (09:28→18:22)
--- NOTE | 2024-12-14 10:50 | W.PN.HOSP.TC ---
Today's Communication/Plan
-
monitor BP
Awaiting auth
monitor poc
Psych recs
Assessment / Plan
Assessment / Plan
Toxic metabolic encephalopathy - improved
Schizoaffective disorder/Bipolar disorder
Insomnia
- Not clear what acute alteration there has been.
- Patient with chronic cognitive impairment and psychosis with recent history noting progression.
- No evidence of acute infectious process, etc to explain any new / acute decompensation.
- Depakote level WNL - 46
- TSH normal
- Status post video swallow evaluation. Speech recommending regular diet.
- Pt was getting Invega Sustenna every month although unable to be provided due to creatinine clearance is close to 10 and is contraindicated.
- Psychiatry following and currently on regimen of Abilify/Ativan. Ativan dose 0.5mg TID. Abilify adjusted to 5mg daily. Melatonin added. Psych further recs for meds adjustment for insomnia
ALBERTINA on CKDIIIB
Edema
Hyperkalemia
Diabetic nephropathy and proteinuria - non nephrotic range
- No recent labs available for comparison - [facility] records showing cr close to 3.
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
- UA with 3+ albumin.
- s/p IVF and IV albumin. currently on oral lasix 40mg daily. potassium downtrended.
- Discussion with patient daughter on 11/25/2024 during patient hospitalization at [facility] patient was also found to have elevated creatinine.
- Patient with worsening renal function and potentially require hemodialysis support, not ideal candidate and nephrology has discussed this with patient family.
- Renal function seems to have plateau. BMP q2days. no plan for immediate dialysis. Nephrology following.
Primary HTN
- controlled on regimen of Norvasc/hydralazine. May need uptitration of hydaralazine.
- BP 127/76
Mild thrombocytopenia
-Platelet 128k. Monitor closely.
Nonischemic myocardial injury
- Patient heart rate currently stable
- Echocardiogram EF of 70 to 75%. Normal regional wall motion. Normal right ventricular size and function. Mild aortic stenosis.
- Last cardiac cath was 2008 with normal coronaries
- Cardiology signed off
Anemia - Likely due to CKD
- Hgb slightly decreased from prior baseline (again - compared to 2021 labs).
- Follow H&H for changes. start po b12.
DM-II
Episode of hypoglycemia
- Stable.
- POC am 95. Lantus dose decreased to 12U HS. Start Premeal 2 units and uptitrate as needed
- Check A1C and 9.3.
Diarrhea / Constipation
- monitor for symptoms
- CT done in the ED this evening with no obstruction, marked constipation, etc.
- Cont with bowel regimen
COVID exposure with aide visiting on 12/10/24
-Check COVID -negative.
DVT Prophylaxis: Subcut heparin
Code Status: Full
PT/OT-SNF on DC. Awaiting auth. CM aware. Psych recs for meds adjustment. Medically stable
Anticipated Discharge: Today
Subjective/Interval History
-
Date of Service: December 14, 2024
having bm
fluctuating mood process
calm at times and anxious other times
Objective Data
-
Labs:
Laboratory Results
12/14/24
06:28
WBC 4.5 L
Hgb 8.8 L
Hct 26.9 L
Plt Count 128 L
Sodium 138
Potassium 4.2
Chloride 104
Carbon Dioxide 29
BUN 68 H
Creatinine 3.8 H
Glucose 89
Calcium 8.6
Vital Signs:
Vital Signs
Temp Pulse Resp BP Pulse Ox
97.8 F 63 18 127/76 95
12/14/24 07:00 12/14/24 07:00 12/14/24 07:00 12/14/24 07:00 12/14/24 07:00
I&O
12/13/24 12/14/24 12/15/24
06:59 06:59 06:59
Intake Total 960 / 960 840 / 840
Balance 960 / 960 840 / 840
Physical Exam
-
General: No Apparent Distress, Comfortable and Morbidly Obese
HEENT: Normocephalic, Atraumatic and Moist Mucous Membranes; Negative Oxygen
Respiratory: Clear to Auscultation
Cardiac: Regular Rhythm and S1/S2
GI: Soft, Nontender, Nondistended, Normal Bowel Sounds and Other (obese )
Genito-urinary: Deferred by me
Musculoskeletal: No Cyanosis
Neuro: Awake and No Motor Deficits
Psych: Calm
[2024-12-14 11:11] LABS: Glucose - Point of Care 139 mg/dl (70-99)
--- NOTE | 2024-12-14 12:58 | W.PN.NEPH.PH ---
Today's Communication / Plan
-
Supportive care
Assessment/Plan
-
69y F with PMH significant for psychiatric disorder, DM-II, obesity and polyneuropathy who presents to ED from local [place] for evaluation of altered mental status.
renal consul for acute kidney injury.
Impression.
Acute or chronic kidney disease with a creatinine of 1.42 in 2021 no more recent labs and presents with a creatinine greater of 3.
Anemia without thrombocytopenia.
Altered mental status without signs of infection.
proteinuria in the setting of the diabetes with an [place]arco. But
Hypertension.
Plan.
creatinine was stable (3.8)
known creatinine per family in 3 range at [facility] recently
likely DKD and possible has progressed
bp stable, holding ACEI
Lasix 40mg cont oral route, edema is much better
No emergent need of dialysis
Remained stable no changes
On 12/03 Dr Curiel had Long discussion with the family including the brother and the daughter. They're more concerned that her behavioral issues likely are new and this is not her baseline and they expect to see improvement with the adjustment of
the medication by psychiatric. They are hopeful that the renal function will stabilize, they're not very sure if they will agree with the dialysis but want to check with the patient first, knowing her behavior family thinks she may not agree. We
also reviewed the fact that with emotional outbursts it will be difficult to maintain on dialysis. Family understands that and I think they wanted to give her a chance to make the call.
-
-
Date of Service: December 14, 2024
CC / HPI / ROS
-
Chief Complaint:
ALBERTINA
History of Present Illness:
ALBERTINA/Cr stable 3.8
nephrotic range proteinuria
K stable
Hemodynamically stable
Review of Systems:
Not sleeping overnight
Output not record
Labs
-
Labs:
WBC 4.5 10^3/uL (4.8-10.8) L 12/14/24 06:28
RBC 3.00 10^6/uL (4.20-5.40) L 12/14/24 06:28
Hgb 8.8 g/dL (12.0-16.0) L 12/14/24 06:28
Hct 26.9 % (37.0-47.0) L 12/14/24 06:28
Plt Count 128 10^3/uL (130-400) L 12/14/24 06:28
Sodium 138 mmol/L (135-145) 12/14/24 06:28
Potassium 4.2 mmol/L (3.5-5.1) 12/14/24 06:28
Chloride 104 mmol/L (98-107) 12/14/24 06:28
Carbon Dioxide 29 mmol/L (22-30) 12/14/24 06:28
BUN 68 mg/dl (7-17) H 12/14/24 06:28
Creatinine 3.8 mg/dL (0.6-1.0) H 12/14/24 06:28
eGFR 12.29 12/14/24 06:28
Glucose 89 mg/dl (70-99) 12/14/24 06:28
Calcium 8.6 mg/dl (8.4-10.2) 12/14/24 06:28
Phosphorus 4.7 mg/dl (2.5-4.5) H 11/25/24 05:25
Zfg-U-Rjxhoylamyp Pept 822 pg/ml 11/24/24 16:55
Albumin 3.3 g/dl (3.5-5.0) L 11/26/24 05:07
Physical Exam
-
Vital Signs:
Vital Signs
Temp Pulse Resp BP Pulse Ox
97.8 F 63 18 127/76 95
12/14/24 07:00 12/14/24 07:00 12/14/24 07:00 12/14/24 07:00 12/14/24 07:00
Cardiovascular:: Regular rate and rhythm
Respiratory:: Bilateral: Coarse
Lung Excursion:: Abnormal
Abdomen:: Distended, Nontender and Soft
Extremity Edema:: None: Bilateral: (trace)
Moran Catheter: No
--- NOTE | 2024-12-14 14:56 | PTCARENOTE ---
patient mood fluctuates between periods of calmness/somnolence and periods of anxiety/impulsive, tolerating diet, often requests more food after eating initial food try. vss, will continue to monitor.
[2024-12-14 15:05] VITALS: BP 105/58
[2024-12-14 17:06] LABS: Glucose - Point of Care 191 mg/dl (70-99)
[2024-12-14] MEDS: NOVOLOG FLEXPEN-LOW RESISTANCE 1 UNITS SC (18:21)
[2024-12-14 21:39] LABS: Glucose - Point of Care 162 mg/dl (70-99)
[2024-12-14 21:43] VITALS: BP 132/60
[2024-12-14] MEDS: SENOKOT-S PO (21:50)
[2024-12-14] MEDS: LIPITOR 20 MG PO (21:51)
[2024-12-14] MEDS: MELATONIN 5 MG PO (21:52)
[2024-12-14] MEDS: LANTUS 0.12 UNITS SC (21:53)
[2024-12-14 23:10] VITALS: BP 124/68
[2024-12-15] MEDS: HEPARIN 5000 UNITS SC ×4 (00:30→23:16)
[2024-12-15] MEDS: TYLENOL 650 MG PO ×2 (03:07→20:37)
[2024-12-15 06:00] VITALS: BMI 36.6
[2024-12-15 07:05] VITALS: BP 142/69
[2024-12-15 07:31] LABS: Glucose - Point of Care 97 mg/dl (70-99)
[2024-12-15] MEDS: APRESOLINE 50 MG PO ×2 (09:08→21:07)
[2024-12-15] MEDS: ABILIFY 5 MG PO (09:08)
[2024-12-15] MEDS: SENOKOT-S 1 TABLET PO ×2 (09:09→21:08)
[2024-12-15] MEDS: LOW STRENGTH ASPIRIN 81 MG PO (09:09)
[2024-12-15] MEDS: ATIVAN 0.5 MG PO ×3 (09:09→21:10)
[2024-12-15] MEDS: NORVASC 10 MG PO (09:09)
[2024-12-15] MEDS: VITAMIN B-12 1000 MCG PO (09:09)
[2024-12-15] MEDS: LASIX 40 MG PO (09:12)
[2024-12-15] MEDS: DEPAKOTE SPRINKLE 250 MG PO ×3 (09:12→21:10)
[2024-12-15] MEDS: DESENEX/MITRAZOL/ZEASORB 1 APPLIC TOPICAL ×2 (09:12→21:11)
[2024-12-15] MEDS: NOVOLOG FLEXPEN-LOW RESISTANCE SC ×3 (09:14→17:56)
[2024-12-15] MEDS: NOVOLOG FLEXPEN 2 UNITS SC ×3 (09:14→17:55)
--- NOTE | 2024-12-15 10:52 | W.PN.NEPH.PH ---
Today's Communication / Plan
-
follow labs in am
Assessment/Plan
-
69y F with PMH significant for psychiatric disorder, DM-II, obesity and polyneuropathy who presents to ED from local [place] for evaluation of altered mental status.
renal consul for acute kidney injury.
Impression.
Acute or chronic kidney disease with a creatinine of 1.42 in 2021 no more recent labs and presents with a creatinine greater of 3.
Anemia without thrombocytopenia.
Altered mental status without signs of infection.
proteinuria in the setting of the diabetes with an [place]arco. But
Hypertension.
Plan.
creatinine was stable (3.8) as of 12/14
known creatinine per family in 3 range at [facility] recently
likely DKD and possible has progressed
bp stable, holding ACEI
Lasix 40mg cont oral route, edema is much better
No emergent need of dialysis
Remained stable no changes
await placement
labs in am
On 12/03 Dr Curiel had Long discussion with the family including the brother and the daughter. They're more concerned that her behavioral issues likely are new and this is not her baseline and they expect to see improvement with the adjustment of
the medication by psychiatric. They are hopeful that the renal function will stabilize, they're not very sure if they will agree with the dialysis but want to check with the patient first, knowing her behavior family thinks she may not agree. We
also reviewed the fact that with emotional outbursts it will be difficult to maintain on dialysis. Family understands that and I think they wanted to give her a chance to make the call.
-
-
Date of Service: December 15, 2024
CC / HPI / ROS
-
Chief Complaint:
ALBERTINA
History of Present Illness:
ALBERTINA/Cr stable 3.8, no labs today
nephrotic range proteinuria
K stable
Hemodynamically stable
Review of Systems:
able to move around
wanting more food
no n/v
chr c/o sob which is no change
Labs
-
Labs:
WBC 4.5 10^3/uL (4.8-10.8) L 12/14/24 06:28
RBC 3.00 10^6/uL (4.20-5.40) L 12/14/24 06:28
Hgb 8.8 g/dL (12.0-16.0) L 12/14/24 06:28
Hct 26.9 % (37.0-47.0) L 12/14/24 06:28
Plt Count 128 10^3/uL (130-400) L 12/14/24 06:28
Sodium 138 mmol/L (135-145) 12/14/24 06:28
Potassium 4.2 mmol/L (3.5-5.1) 12/14/24 06:28
Chloride 104 mmol/L (98-107) 12/14/24 06:28
Carbon Dioxide 29 mmol/L (22-30) 12/14/24 06:28
BUN 68 mg/dl (7-17) H 12/14/24 06:28
Creatinine 3.8 mg/dL (0.6-1.0) H 12/14/24 06:28
eGFR 12.29 12/14/24 06:28
Glucose 89 mg/dl (70-99) 12/14/24 06:28
Calcium 8.6 mg/dl (8.4-10.2) 12/14/24 06:28
Phosphorus 4.7 mg/dl (2.5-4.5) H 11/25/24 05:25
Tac-P-Wbmhghahwjr Pept 822 pg/ml 11/24/24 16:55
Albumin 3.3 g/dl (3.5-5.0) L 11/26/24 05:07
Physical Exam
-
Vital Signs:
Vital Signs
Temp Pulse Resp BP Pulse Ox
97.5 F 66 18 142/69 97
12/15/24 07:05 12/15/24 09:12 12/15/24 07:05 12/15/24 09:12 12/15/24 07:05
Cardiovascular:: Regular rate and rhythm
Lung Excursion:: Normal (decreased)
Abdomen:: Distended, Nontender and Soft
Extremity Edema:: None: Bilateral: (trace)
Moran Catheter: No
[2024-12-15 12:20] LABS: Glucose - Point of Care 119 mg/dl (70-99)
--- NOTE | 2024-12-15 14:54 | W.PN.HOSP.TC ---
Today's Communication/Plan
-
medically remains stable
ongoing snf/rehab placement efforts
Assessment / Plan
Assessment / Plan
Toxic metabolic encephalopathy - improved
Schizoaffective disorder/Bipolar disorder
Insomnia
- Not clear what acute alteration there has been.
- Patient with chronic cognitive impairment and psychosis with recent history noting progression.
- No evidence of acute infectious process, etc to explain any new / acute decompensation.
- Depakote level WNL - 46
- TSH normal
- Status post video swallow evaluation. Speech recommending regular diet.
- Pt was getting Invega Sustenna every month although unable to be provided due to creatinine clearance is close to 10 and is contraindicated.
- Psychiatry following and currently on regimen of Abilify/Ativan. Ativan dose 0.5mg TID. Abilify adjusted to 5mg daily. Melatonin added. Psych further recs for meds adjustment for insomnia
ALBERTINA on CKDIIIB
Edema
Hyperkalemia
Diabetic nephropathy and proteinuria - non nephrotic range
- No recent labs available for comparison - [facility] records showing cr close to 3.
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
- UA with 3+ albumin.
- s/p IVF and IV albumin. currently on oral lasix 40mg daily. potassium downtrended.
- Discussion with patient daughter on 11/25/2024 during patient hospitalization at [facility] patient was also found to have elevated creatinine.
- Patient with worsening renal function and potentially require hemodialysis support, not ideal candidate and nephrology has discussed this with patient family.
- Renal function seems to have plateau. BMP q2days. no plan for immediate dialysis. Nephrology following.
Primary HTN
- controlled on regimen of Norvasc/hydralazine. May need uptitration of hydaralazine.
Mild thrombocytopenia
-continue monitoring
Nonischemic myocardial injury
- Patient heart rate currently stable
- Echocardiogram EF of 70 to 75%. Normal regional wall motion. Normal right ventricular size and function. Mild aortic stenosis.
- Last cardiac cath was 2008 with normal coronaries
- Cardiology signed off
Anemia - Likely due to CKD
- Hgb slightly decreased from prior baseline (again - compared to 2021 labs).
- Follow H&H for changes. start po b12.
DM-II
Episode of hypoglycemia
- Stable.
- POC am 95. Lantus dose decreased to 12U HS. Start Premeal 2 units and uptitrate as needed
- Check A1C and 9.3.
Diarrhea / Constipation
- monitor for symptoms
- CT done in the ED this evening with no obstruction, marked constipation, etc.
- Cont with bowel regimen
COVID exposure with aide visiting on 12/10/24
-Check COVID -negative.
DVT Prophylaxis: Subcut heparin
Code Status: Full
Anticipated Discharge: Today
Subjective/Interval History
-
Date of Service: December 15, 2024
no reported problems overnight
Objective Data
-
Vital Signs:
Vital Signs
Temp Pulse Resp BP Pulse Ox
97.5 F 66 18 142/69 97
12/15/24 07:05 12/15/24 09:12 12/15/24 07:05 12/15/24 09:12 12/15/24 08:45
I&O
12/14/24 12/15/24 12/16/24
06:59 06:59 06:59
Intake Total 840 / 840 720 / 720
Balance 840 / 840 720 / 720
Review of Systems
-
Respiratory: Reports No Symptoms
Cardiac: Reports No Symptoms
Abdomen/GI: Reports No Symptoms
Physical Exam
-
General: Morbidly Obese
HEENT: Negative Oxygen
Respiratory: Clear to Auscultation
Cardiac: Regular Rhythm and S1/S2
Musculoskeletal: No Cyanosis
Neuro: No Motor Deficits; Negative Awake (Somnolent)
Psych: Calm
--- NOTE | 2024-12-15 14:59 | CM ---
Placed a call to patient's insurance, [employer] and spoke with a technical service representative named, Chadd Murguia, who provided reference [id number] and stated that patient's clinical for transfer to SNF is still under review and call will be returned with
determination. Reinforced to insurance that patient has been waiting since 12/10. Chadd stated that he received the fax on 12/13. Request was made to expedite however he stated that would not be possible. Chadd stated that the determination will be made
in the next 24-48 hrs. Will update CM Director.
Plan: Case management will continue to follow and assist with discharge planning. Transfer to [facility] upon discharge.
[2024-12-15 15:05] VITALS: BP 126/55
[2024-12-15 15:15] VITALS: BP 126/55; PULSE 78
[2024-12-15 15:46] VITALS: BP 126/55; PULSE 78
[2024-12-15 16:35] LABS: Glucose - Point of Care 143 mg/dl (70-99)
[2024-12-15 21:02] LABS: Glucose - Point of Care 198 mg/dl (70-99)
[2024-12-15 21:05] VITALS: BP 145/78
[2024-12-15] MEDS: LIPITOR 20 MG PO (21:09)
[2024-12-15] MEDS: LANTUS 0.12 UNITS SC (21:11)
[2024-12-15] MEDS: MELATONIN 5 MG PO (21:11)
[2024-12-16] MEDS: TYLENOL 650 MG PO ×2 (02:14→16:03)
[2024-12-16 05:19] VITALS: BMI 36.9
[2024-12-16 07:05] VITALS: BP 142/74
[2024-12-16 07:30] LABS: Glucose - Point of Care 104 mg/dl (70-99)
[2024-12-16 07:39] LABS: Blood Urea Nitrogen 64 mg/dl (7-17); Carbon Dioxide 29 mmol/L (22-30); Chloride 103 mmol/L (98-107); Estimated Creatinine Clearance 13 ml/min; Glucose 101 mg/dl (70-99); Potassium 4.4 mmol/L (3.5-5.1); Sodium 138 mmol/L (135-145); eGFR 11.91
[2024-12-16] MEDS: SENOKOT-S 1 TABLET PO ×2 (07:44→21:39)
[2024-12-16] MEDS: VITAMIN B-12 1000 MCG PO (07:44)
[2024-12-16] MEDS: APRESOLINE 50 MG PO ×2 (07:44→21:37)
[2024-12-16] MEDS: ABILIFY 5 MG PO (07:44)
[2024-12-16] MEDS: LOW STRENGTH ASPIRIN 81 MG PO (07:44)
[2024-12-16] MEDS: DEPAKOTE SPRINKLE 250 MG PO ×3 (07:44→21:38)
[2024-12-16] MEDS: ATIVAN 0.5 MG PO ×3 (07:44→21:40)
[2024-12-16] MEDS: LASIX 40 MG PO (07:45)
[2024-12-16] MEDS: NORVASC 10 MG PO (07:46)
[2024-12-16] MEDS: HEPARIN 5000 UNITS SC ×3 (07:46→23:00)
[2024-12-16] MEDS: DESENEX/MITRAZOL/ZEASORB 1 APPLIC TOPICAL ×2 (07:49→21:42)
[2024-12-16] MEDS: NOVOLOG FLEXPEN 2 UNITS SC ×3 (09:18→17:13)
[2024-12-16] MEDS: NOVOLOG FLEXPEN-LOW RESISTANCE SC (09:19)
--- NOTE | 2024-12-16 10:38 | W.PN.UPDATE ---
Update Note
Progress Note Update
Patient seen at bedside, chart reviewed, discussed with staff. Ms. Finch is sleepy today, still having difficulty sleeping likely related to being in the hospital. Abilify was moved to AM dosing which may also help. Melatonin has been
initiate as well. No signs of active ari or psychosis.
Impression/Recommendations: Schizoaffective disorder, bipolar type - Continue with Abilify 5mg daily (switched from Invega due to renal impairment). Continue with Depakote and Ativan. Promote wakefulness during the day to help prevent insomnia.
Will continue to monitor.
--- NOTE | 2024-12-16 11:22 | W.PN.NEPH.PH ---
Today's Communication / Plan
-
follow BMP
Assessment/Plan
-
69y F with PMH significant for psychiatric disorder, DM-II, obesity and polyneuropathy who presents to ED from local [place] for evaluation of altered mental status.
renal consul for acute kidney injury.
Impression.
Acute or chronic kidney disease with a creatinine of 1.42 in 2021 no more recent labs and presents with a creatinine greater of 3.
Anemia without thrombocytopenia.
Altered mental status without signs of infection.
proteinuria in the setting of the diabetes with an [place]arco. But
Hypertension.
Plan.
Follow BMP
No emergent HD needs
Continue Lasix
I discussed with the patient the possibility of dialysis. She stated quite clearly that she would not do dialysis under any circumstance. She says that her mother was on dialysis and had from kidney failure.
On 12/03 Dr Curiel had Long discussion with the family including the brother and the daughter. They're more concerned that her behavioral issues likely are new and this is not her baseline and they expect to see improvement with the adjustment of
the medication by psychiatric. They are hopeful that the renal function will stabilize, they're not very sure if they will agree with the dialysis but want to check with the patient first, knowing her behavior family thinks she may not agree. We
also reviewed the fact that with emotional outbursts it will be difficult to maintain on dialysis. Family understands that and I think they wanted to give her a chance to make the call.
-
-
Date of Service: December 16, 2024
CC / HPI / ROS
-
Chief Complaint:
ALBERTINA
History of Present Illness:
ALBERTINA/Cr stable 3.9
nephrotic range proteinuria
K stable
Hemodynamically stable
Review of Systems:
c/o back pain.
no CP/SOB
Labs
-
Labs:
WBC 4.5 10^3/uL (4.8-10.8) L 12/14/24 06:28
RBC 3.00 10^6/uL (4.20-5.40) L 12/14/24 06:28
Hgb 8.8 g/dL (12.0-16.0) L 12/14/24 06:28
Hct 26.9 % (37.0-47.0) L 12/14/24 06:28
Plt Count 128 10^3/uL (130-400) L 12/14/24 06:28
Sodium 138 mmol/L (135-145) 12/16/24 06:35
Potassium 4.4 mmol/L (3.5-5.1) 12/16/24 06:35
Chloride 103 mmol/L (98-107) 12/16/24 06:35
Carbon Dioxide 29 mmol/L (22-30) 12/16/24 06:35
BUN 64 mg/dl (7-17) H 12/16/24 06:35
Creatinine 3.9 mg/dL (0.6-1.0) H 12/16/24 06:35
eGFR 11.91 12/16/24 06:35
Glucose 101 mg/dl (70-99) H 12/16/24 06:35
Calcium 9.0 mg/dl (8.4-10.2) 12/16/24 06:35
Phosphorus 4.7 mg/dl (2.5-4.5) H 11/25/24 05:25
Ilj-T-Tdimdphgppf Pept 822 pg/ml 11/24/24 16:55
Albumin 3.3 g/dl (3.5-5.0) L 11/26/24 05:07
Physical Exam
-
Vital Signs:
Vital Signs
Temp Pulse Resp BP Pulse Ox
97.7 F 68 18 142/74 99
12/16/24 07:05 12/16/24 07:46 12/16/24 07:05 12/16/24 07:46 12/16/24 09:58
Cardiovascular:: Regular rate and rhythm
Respiratory:: Bilateral: Coarse
Lung Excursion:: Normal
Abdomen:: Nontender and Soft
Bowel Sounds:: Normal
Extremity Edema:: None: Bilateral:
--- NOTE | 2024-12-16 11:45 | W.PN.HOSP.TC ---
Today's Communication/Plan
-
CM documentation reviewed
continue placement effort
Assessment / Plan
Assessment / Plan
Toxic metabolic encephalopathy - improved
Schizoaffective disorder/Bipolar disorder
Insomnia
- Patient with chronic cognitive impairment and psychosis with recent history noting progression.
- No evidence of acute infectious process, etc to explain any new / acute decompensation.
- Depakote level WNL - 46
- TSH normal
- Status post video swallow evaluation. Speech recommending regular diet.
- Pt was getting Invega Sustenna every month although unable to be provided due to creatinine clearance is close to 10 and is contraindicated.
- Psychiatry following and currently on regimen of Abilify/Ativan. Psych further recs for meds adjustment for insomnia
ALBERTINA on CKDIIIB
Edema
Hyperkalemia
Diabetic nephropathy and proteinuria - non nephrotic range
- No recent labs available for comparison - [facility] records showing cr close to 3.
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
- UA with 3+ albumin.
- s/p IVF and IV albumin. currently on oral lasix 40mg daily. potassium downtrended.
- Discussion with patient daughter on 11/25/2024 during patient hospitalization at [facility] patient was also found to have elevated creatinine.
- Patient with worsening renal function and potentially require hemodialysis support, not ideal candidate and nephrology has discussed this with patient family.
- Renal function seems to have plateau. BMP q2days. no plan for immediate dialysis. Nephrology following.
Primary HTN
- controlled on regimen of Norvasc/hydralazine. May need uptitration of hydaralazine.
Mild thrombocytopenia
- continue monitoring
Nonischemic myocardial injury
- Patient heart rate currently stable
- Echocardiogram EF of 70 to 75%. Normal regional wall motion. Normal right ventricular size and function. Mild aortic stenosis.
- Last cardiac cath was 2008 with normal coronaries
- Cardiology signed off
Anemia - Likely due to CKD
- Hgb slightly decreased from prior baseline (again - compared to 2021 labs).
- Follow H&H for changes. start po b12.
DM-II
Episode of hypoglycemia
- Stable.
- POC am 95. Lantus dose decreased to 12U HS. Start Premeal 2 units and uptitrate as needed
- Check A1C and 9.3.
Diarrhea / Constipation
- monitor for symptoms
- CT done in the ED this evening with no obstruction, marked constipation, etc.
- Cont with bowel regimen
COVID exposure with aide visiting on 12/10/24
-Check COVID -negative.
DVT Prophylaxis: Subcut heparin
Code Status: Full
Anticipated Discharge: Today
Subjective/Interval History
-
Date of Service: December 16, 2024
no reported issues overnight
Objective Data
-
Labs:
Laboratory Results
12/16/24
06:35
Sodium 138
Potassium 4.4
Chloride 103
Carbon Dioxide 29
BUN 64 H
Creatinine 3.9 H
Glucose 101 H
Calcium 9.0
Vital Signs:
Vital Signs
Temp Pulse Resp BP Pulse Ox
97.7 F 68 18 142/74 99
12/16/24 07:05 12/16/24 07:46 12/16/24 07:05 12/16/24 07:46 12/16/24 09:58
I&O
12/15/24 12/16/24 12/17/24
06:59 06:59 06:59
Intake Total 720 / 720 1140 / 1140
Balance 720 / 720 1140 / 1140
Review of Systems
-
Unable to obtain full review of systems at this time due to: Acuity
Physical Exam
-
General: Morbidly Obese
HEENT: Negative Oxygen
Respiratory: Clear to Auscultation
Cardiac: Regular Rhythm and S1/S2
Musculoskeletal: No Cyanosis
Neuro: No Motor Deficits; Negative Awake (Somnolent)
Psych: Calm
[2024-12-16 12:34] LABS: Glucose - Point of Care 160 mg/dl (70-99)
--- NOTE | 2024-12-16 13:03 | CM ---
TC to [facility] [phone]- spoke with Maryam Martinez
Per Maryam there is not skilled request on record.
(The information that was received on 12/13/24 was for the acute inpatient authorization -[id number])
Per Maryam skilled request can be faxed to [phone], fax sheet can be found at [email or web address]
will refax clinicals for skilled authorization for [place].
[2024-12-16] MEDS: NOVOLOG FLEXPEN-LOW RESISTANCE 1 UNITS SC ×2 (13:59→17:13)
--- NOTE | 2024-12-16 14:27 | CM ---
Spoke with CM special education supervisor regarding multiple attempts to get authorization. She stated that she has called them and re-faxed all information in hopes to expedite process. Placed a call to Ely in admissions at [facility] who confirmed that she
still has the bed for patient and asked to just keep her updated. Patient's brother updated yesterday regarding insurance. He expressed understanding.
Plan: Case management will continue to follow and assist with discharge planning. [place] upon hopeful obtaining of auth.
[2024-12-16 15:05] VITALS: BP 160/69
--- NOTE | 2024-12-16 15:21 | PN.CDI ---
CDI
- -
CDI:
Physician Documentation Request
Admit Date: 11/25/24 01:44
Dear Doctor Nino,
12/15 Nephrology note states ' known creatinine per family in 3 range at [facility] recently. Likely DKD and poss has progressed...no emergent need for dialysis....We also reviewed the fact that with emotional outbursts it will be difficult to
maintain on dialysis.'
Hospitalist progress note states 'ALBERTINA on CKD IIIB'
Please clarify which of the following accurately represents the patient's renal status:
Stages of Chronic Kidney Disease*
Level Description GFR
G3b Moderately to severely decreased 30-44
G4 Severely decreased 15-29
G5 Kidney failure <15
OTHER
Use of terms such as suspected, likely, concern for, or probable (associated with a specific diagnosis that is being evaluated, monitored, or treated as if it exists) are acceptable and can be coded in the inpatient setting, when documented at the
time of discharge.
Thank you,
Nathalie Luna RN, BSN
CDI Specialist
tiger text
Please use your independent medical judgment in providing your response.
*Source: Kidney Disease: Improving Global Outcomes (KDIGO) 2012
[2024-12-16 16:59] LABS: Glucose - Point of Care 158 mg/dl (70-99)
[2024-12-16 21:21] LABS: Glucose - Point of Care 137 mg/dl (70-99)
[2024-12-16] MEDS: MELATONIN 5 MG PO (21:38)
[2024-12-16] MEDS: LIPITOR 20 MG PO (21:39)
[2024-12-16] MEDS: LANTUS 0.12 UNITS SC (21:41)
[2024-12-16 23:00] VITALS: BP 147/68
[2024-12-17] MEDS: TYLENOL 650 MG PO (02:48)
--- NOTE | 2024-12-17 03:15 | DOWNTIME ---
There was a [employer] Client [employer]mer Numerical Control Downtime on 12/17/2024 from 0100 to 12/17/2023 at 0235 . Downtime documentation of patient's care, including medication administrations, has been reconciled in the electronic record per guidelines. Refer to the
patient's paper chart under the miscellaneous tab to see printed paper medication records and downtime forms.
[2024-12-17 06:00] VITALS: BMI 35.7
[2024-12-17 07:00] LABS: Blood Urea Nitrogen 61 mg/dl (7-17); Calcium 8.8 mg/dl (8.4-10.2); Carbon Dioxide 29 mmol/L (22-30); Chloride 105 mmol/L (98-107); Estimated Creatinine Clearance 13 ml/min; Glucose 98 mg/dl (70-99); Potassium 4.2 mmol/L (3.5-5.1); Sodium 139 mmol/L (135-145); eGFR 12.69
[2024-12-17 07:13] VITALS: BP 136/57
[2024-12-17 07:30] LABS: Glucose - Point of Care 90 mg/dl (70-99)
[2024-12-17] MEDS: NOVOLOG FLEXPEN-LOW RESISTANCE SC (08:26)
[2024-12-17] MEDS: DEPAKOTE SPRINKLE 250 MG PO ×2 (08:26→15:11)
[2024-12-17] MEDS: LASIX 40 MG PO (08:26)
[2024-12-17] MEDS: ATIVAN 0.5 MG PO ×2 (08:26→15:11)
[2024-12-17] MEDS: LOW STRENGTH ASPIRIN 81 MG PO (08:27)
[2024-12-17] MEDS: SENOKOT-S 1 TABLET PO (08:27)
[2024-12-17] MEDS: ABILIFY 5 MG PO (08:27)
[2024-12-17] MEDS: NORVASC 10 MG PO (08:27)
[2024-12-17] MEDS: APRESOLINE 50 MG PO (08:27)
[2024-12-17] MEDS: VITAMIN B-12 1000 MCG PO (08:28)
[2024-12-17] MEDS: NOVOLOG FLEXPEN 2 UNITS SC ×2 (08:30→13:19)
[2024-12-17] MEDS: HEPARIN 5000 UNITS SC (08:31)
--- NOTE | 2024-12-17 10:16 | CM ---
Addendum entered by Carola Dahl 12/17/24 10:37:
Auth given to [facility].
CM updated.
Original Note:
TC from [facility] with skilled rehab approval
Approved 7 days skilled rehab @ [facility]
Start date 12/17/24, LCD 12/23/24, NRD 12/24/24
Auth# [id number]
[2024-12-17] MEDS: DESENEX/MITRAZOL/ZEASORB 1 APPLIC TOPICAL (10:30)
--- NOTE | 2024-12-17 10:53 | CM ---
Received authorization from insurance- auth #[id number] approved 12/17/24-12/24/24 review [phone].
Attending updated.
Placed a call to Ely in admissions at [facility] who confirmed bed availability today. # For report [phone] and fax# [phone]
Medical necessity and transfer sheet completed for patient transfer.
Will update patient's brother and review IMM.
Plan: Case management will continue to follow and assist with discharge planning. [facility].
[2024-12-17 11:19] LABS: Glucose - Point of Care 151 mg/dl (70-99)
--- NOTE | 2024-12-17 11:21 | W.PN.NEPH.PH ---
Today's Communication / Plan
-
Continue Lasix
Assessment/Plan
-
69y F with PMH significant for psychiatric disorder, DM-II, obesity and polyneuropathy who presents to ED from local [place] for evaluation of altered mental status.
renal consul for acute kidney injury.
Impression.
Acute or chronic kidney disease with a creatinine of 1.42 in 2021 no more recent labs and presents with a creatinine greater of 3.
Anemia without thrombocytopenia.
Altered mental status without signs of infection.
proteinuria in the setting of the diabetes with an [place]. But
Hypertension.
Plan.
Follow BMP
No emergent HD needs
Continue Lasix
On 12/03 Dr Curiel had Long discussion with the family including the brother and the daughter. They're more concerned that her behavioral issues likely are new and this is not her baseline and they expect to see improvement with the adjustment of
the medication by psychiatric. They are hopeful that the renal function will stabilize, they're not very sure if they will agree with the dialysis but want to check with the patient first, knowing her behavior family thinks she may not agree. We
also reviewed the fact that with emotional outbursts it will be difficult to maintain on dialysis. Family understands that and I think they wanted to give her a chance to make the call.
-
-
Date of Service: December 17, 2024
CC / HPI / ROS
-
Chief Complaint:
ALBERTINA
History of Present Illness:
ALBERTINA/Cr stable 3.9/3.7
nephrotic range proteinuria
K stable
Hemodynamically stable
Review of Systems:
c/o back pain.
no CP/SOB
Labs
-
Labs:
WBC 4.5 10^3/uL (4.8-10.8) L 12/14/24 06:28
RBC 3.00 10^6/uL (4.20-5.40) L 12/14/24 06:28
Hgb 8.8 g/dL (12.0-16.0) L 12/14/24 06:28
Hct 26.9 % (37.0-47.0) L 12/14/24 06:28
Plt Count 128 10^3/uL (130-400) L 12/14/24 06:28
Sodium 139 mmol/L (135-145) 12/17/24 06:02
Potassium 4.2 mmol/L (3.5-5.1) 12/17/24 06:02
Chloride 105 mmol/L (98-107) 12/17/24 06:02
Carbon Dioxide 29 mmol/L (22-30) 12/17/24 06:02
BUN 61 mg/dl (7-17) H 12/17/24 06:02
Creatinine 3.7 mg/dL (0.6-1.0) H 12/17/24 06:02
eGFR 12.69 12/17/24 06:02
Glucose 98 mg/dl (70-99) 12/17/24 06:02
Calcium 8.8 mg/dl (8.4-10.2) 12/17/24 06:02
Phosphorus 4.7 mg/dl (2.5-4.5) H 11/25/24 05:25
Rhr-J-Wxuctbzcyyd Pept 822 pg/ml 11/24/24 16:55
Albumin 3.3 g/dl (3.5-5.0) L 11/26/24 05:07
Physical Exam
-
Vital Signs:
Vital Signs
Temp Pulse Resp BP Pulse Ox
97.7 F 61 17 136/57 95
12/17/24 07:13 12/17/24 08:27 12/17/24 07:13 12/17/24 08:27 12/17/24 07:13
Cardiovascular:: Regular rate and rhythm
Respiratory:: Bilateral: Coarse
Lung Excursion:: Normal
Abdomen:: Nontender and Soft
Bowel Sounds:: Normal
Extremity Edema:: None: Bilateral:
--- NOTE | 2024-12-17 12:10 | W.PN.HOSP.TC ---
Addendum entered and electronically signed by Checo Oneill MD 12/21/24 08:17:
Add on to diagnosis list:
Baseline GFR unknown - PRESUMED CKD IIIB (at admission)
Now have progressed to CKD IV
Original Note:
Today's Communication/Plan
-
d/c snf rehab
Assessment / Plan
Assessment / Plan
Toxic metabolic encephalopathy - improved
Schizoaffective disorder/Bipolar disorder
Insomnia
- Patient with chronic cognitive impairment and psychosis with recent history noting progression.
- No evidence of acute infectious process, etc to explain any new / acute decompensation.
- Depakote level WNL - 46
- TSH normal
- Status post video swallow evaluation. Speech recommending regular diet.
- Pt was getting Invega Sustenna every month although unable to be provided due to creatinine clearance is close to 10 and is contraindicated.
- Psychiatry following and currently on regimen of Abilify/Ativan. Psych further recs for meds adjustment for insomnia
ALBERTINA on CKDIIIB
Edema
Hyperkalemia
Diabetic nephropathy and proteinuria - non nephrotic range
- No recent labs available for comparison - [facility] records showing cr close to 3.
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
- UA with 3+ albumin.
- s/p IVF and IV albumin. currently on oral lasix 40mg daily. potassium downtrended.
- Discussion with patient daughter on 11/25/2024 during patient hospitalization at [facility] patient was also found to have elevated creatinine.
- Patient with worsening renal function and potentially require hemodialysis support, not ideal candidate and nephrology has discussed this with patient family.
- Renal function seems to have plateau. BMP q2days. no plan for immediate dialysis. Nephrology following.
Primary HTN
- controlled on regimen of Norvasc/hydralazine. May need uptitration of hydaralazine.
Mild thrombocytopenia
- continue monitoring
Nonischemic myocardial injury
- Patient heart rate currently stable
- Echocardiogram EF of 70 to 75%. Normal regional wall motion. Normal right ventricular size and function. Mild aortic stenosis.
- Last cardiac cath was 2008 with normal coronaries
- Cardiology signed off
Anemia - Likely due to CKD
- Hgb slightly decreased from prior baseline (again - compared to 2021 labs).
- Follow H&H for changes. start po b12.
DM-II
Episode of hypoglycemia
- Stable.
- POC am 95. Lantus dose decreased to 12U HS. Start Premeal 2 units and uptitrate as needed
- Check A1C and 9.3.
Diarrhea / Constipation
- monitor for symptoms
- CT done in the ED this evening with no obstruction, marked constipation, etc.
- Cont with bowel regimen
COVID exposure with aide visiting on 12/10/24
-Check COVID -negative.
DVT Prophylaxis: Subcut heparin
Code Status: Full
More than 30 minutes spent in discharge including
Final examination of the patient
Summarizing hospital stay
Instructions for continuing care to all relevant caregivers
Preparation of discharge records, prescriptions, and referral forms
Total time spent (in minutes): 38mins
Anticipated Discharge: Today
Subjective/Interval History
-
Date of Service: December 17, 2024
No clinical issues overnight
Objective Data
-
Labs:
Laboratory Results
12/17/24
06:02
Sodium 139
Potassium 4.2
Chloride 105
Carbon Dioxide 29
BUN 61 H
Creatinine 3.7 H
Glucose 98
Calcium 8.8
Vital Signs:
Vital Signs
Temp Pulse Resp BP Pulse Ox
97.7 F 61 17 136/57 95
12/17/24 07:13 12/17/24 08:27 12/17/24 07:13 12/17/24 08:27 12/17/24 07:13
I&O
12/16/24 12/17/24 12/18/24
06:59 06:59 06:59
Intake Total 1140 / 1140 1320 / 1320
Balance 1140 / 1140 1320 / 1320
Review of Systems
-
Respiratory: Reports No Symptoms
Cardiac: Reports No Symptoms
Abdomen/GI: Reports No Symptoms
Physical Exam
-
General: Morbidly Obese
HEENT: Negative Oxygen
Respiratory: Clear to Auscultation
Cardiac: Regular Rhythm and S1/S2
Musculoskeletal: No Cyanosis
Neuro: No Motor Deficits; Negative Awake (Somnolent)
Psych: Calm
[2024-12-17] MEDS: NOVOLOG FLEXPEN-LOW RESISTANCE 1 UNITS SC (13:20)
[2024-12-17 15:18] VITALS: BP 140/58
--- NOTE | 2024-12-18 08:14 | W.DCSUMMARY ---
Discharge Summary
Discharge Data
Date of Admission: 11/25/24
Date of Discharge: 12/17/24
-
Pending Results: No
Hospital Course
Discharging Physician : Dr Checo Oneill
Disposition : SNF for rehab
Primary care physician : Dr Sulema Lopez
Principal Discharge diagnosis :
Toxic metabolic encephalopathy
Schizoaffective disorder/bipolar disorder
Acute kidney injury on chronic kidney disease stage IIIb
Hyperkalemia
Diabetic nephropathy
Troponin elevation from nonischemic myocardial injury
Chronic Discharge diagnosis :
Essential hypertension
Anemia of chronic renal disease
Type 2 diabetes mellitus
Morbid obesity
Hospital Course :
Patient is a 69-year-old female with above-mentioned past medical history [facility] after patient was noted to having altered mental state/lethargy.
Acute kidney injury on chronic kidney stage stage IIIB -patient mainly noted to having elevated creatinine in range of 3 which is significantly higher than patient baseline. Initial workup with urinalysis showing possible nephrotic range
proteinuria. Nephrology was involved in care and patient underwent further workup with no clear reason for patient ALBERTINA found. Patient was felt to having advancing diabetic nephropathy. CT abdomen pelvis was showing bilateral atrophic kidneys as
well, in line with medical renal disease. patient was given empiric trial of Lasix with which patient creatinine improved slowly, discharge creatinine of 3.7. Of note hemodialysis was discussed at one point although in light of patient other
comorbidities family opted to manage patient without dialysis.
Toxic metabolic encephalopathy, schizoaffective disorder/bipolar disorder -patient have long history of cognitive impairment/seizure affective disorder. At admission patient was encephalopathic. Infection was ruled out. Drug level/Depakote level
were checked, within normal limit. Psychiatry was involved in care and patient regimen was adjusted significantly from home admission. Patient is discharged on the same regimen. Of note patient has been contraindicated to be on Invega Sustenna
moving forward due to renal failure.
Nonischemic myocardial injury related troponin elevation -cardiology was involved in care. Patient had an echocardiogram which showed preserved ejection fraction. Cardiology recommended against any further invasive testing.
Post medical stabilization [facility]
Important imaging findings :
None
Procedure findings :
None
Discharge Plan
-
Patient Disposition: [facility]/SNF
Discharge Diagnosis/Procedures: Toxic metabolic encephalopathy
Schizoaffective disorder/Bipolar disorder
Insomnia
ALBERTINA on CKDIIIB
Edema
Hyperkalemia
Nonischemic myocardial injury
Condition: Fair
Diet: Diabetic, Carb Controlled
Activity: With assistance and As tolerated
Driving Restrictions: No driving
Blood Work: Weekly to every other week BMP at SNF
Referrals:
Sulema Lopez DO [Family Provider] - in less than 1 week
Inna Spencer MD [Active] - in two to four weeks
Prescriptions:
New
furosemide 40 mg Tablet
40 mg PO DAILY Qty: 30 0RF
lorazepam 0.5 mg Tablet
0.5 mg PO TID Qty: 10 0RF
hydralazine 50 mg Tablet
50 mg PO BID Qty: 60 0RF
divalproex 125 mg Capsule, Delayed Rel Sprinkle
250 mg PO TID Qty: 90 0RF
insulin aspart U-100 100 unit/mL (3 mL) Insulin Pen
2 unit SC AC Qty: 15 0RF
aripiprazole 5 mg Tablet
5 mg PO DAILY Qty: 30 0RF
Insulin Glargine Lantus [Lantus] 12 UNITS
Subcutaneous Insulin Syringe [Syringe-Insulin] 0 UNIT
As Directed mls/hr SC HS
Ordered By: Checo Oneill MD
Last Taken: 12/16/24 21:41 0.12 mls
acetaminophen 325 mg Tablet
650 mg PO Q4HPRN PRN (Reason: Mild Pain / Temp > 101) Qty: 30 0RF
cyanocobalamin (vitamin B-12) [Vitamin B-12] 1,000 mcg Tablet
1,000 mcg PO DAILY Qty: 30 0RF
Continued
atorvastatin 20 mg Tablet
20 mg PO HS
guaifenesin 100 mg/5 mL Liquid
200 mg PO Q6 PRN (Reason: congestion)
amlodipine [Norvasc] 10 mg Tablet
10 mg PO DAILY
aspirin 81 mg Tablet,Chewable
81 mg PO DAILY
ferrous gluconate 324 mg (38 mg iron) Tablet
324 mg PO DAILY
melatonin 10 mg Tablet
10 mg PO HS PRN (Reason: insomnia)
Discontinued
lorazepam 1 MG tablet
1 mg PO BID
lidocaine [Aspercreme (lidocaine)] 4 % Adhesive Patch,Medicated
1 patch TOPICAL DAILY PRN (Reason: pain)
lidocaine [Lidocaine Pain Relief] 4 % Adhesive Patch,Medicated
1 patch TOPICAL DAILY PRN (Reason: pain)
trazodone 50 mg Tablet
50 mg PO HS
tiagabine 4 mg Tablet
4 mg PO HS
docusate sodium [Colace] 100 mg Capsule
100 mg PO DAILY
lisinopril 5 mg Tablet
5 mg PO DAILY
polyethylene glycol 3350 17 gram/dose Powder
4 g PO DAILY
divalproex 125 mg Capsule, Delayed Rel Sprinkle
125 mg PO BID
insulin lispro [Admelog SoloStar U-100 Insulin] 100 unit/mL Insulin Pen
6 unit SC AC
calcium carbonate 500 mg Wafer
500 mg PO DAILY
quetiapine 50 mg Tablet
50 mg PO HS
acetaminophen [Tylenol] 325 mg Capsule
650 mg PO Q4H PRN (Reason: pain)
insulin glargine [Lantus Solostar U-100 Insulin] 100 unit/mL (3 mL) Insulin Pen
25 unit SC QPM
Probizen 32 billion cell Capsule
1 cap PO DAILY
Discharge Orders:
Discharge Patient (As Directed); Ordered 12/17/24
Ordered By: Checo Oneill
Discharge Date and Time
Discharge Date/Time: 12/17/24 15:30
Print Language: MALAWIAN
== END 2024-12-17 15:30 | DRG 682 ==
LOC: 3 WEST ACU 01:44
PROVIDERS: Hospitalist; Internal Medicine; Nurse Practitioner Family; Physician Assistant; Physician Assistant Medical; Specialist; ADMITTING PHYSICIAN Hospitalist; ATTENDING PHYSICIAN Hospitalist; CONSULT PHYSICIAN Internal Medicine; EMERGENCY PHYSICIAN Student in an Organized Health Care Education/Training Program; FAMILY PHYSICIAN Family Medicine; OTHER PHYSICIAN Internal Medicine Nephrology; OTHER PHYSICIAN Psychiatry & Neurology Psychiatry
DX: N17.9 Acute kidney failure, unspecified (principal); G92.8 Other toxic encephalopathy; I5A Non-ischemic myocardial injury (non-traumatic); F84.0 Autistic disorder; F25.0 Schizoaffective disorder, bipolar type; E11.22 Type 2 diabetes mellitus with diabetic chronic kidney disease; D63.1 Anemia in chronic kidney disease; E11.42 Type 2 diabetes mellitus with diabetic polyneuropathy; I12.9 Hypertensive chronic kidney disease with stage 1 through stage 4 chronic kidney disease, or unspecified chronic kidney disease; N18.4 Chronic kidney disease, stage 4 (severe); E78.00 Pure hypercholesterolemia, unspecified; E87.5 Hyperkalemia; K59.00 Constipation, unspecified; G47.00 Insomnia, unspecified; Z20.822 Contact with and (suspected) exposure to COVID-19; D69.6 Thrombocytopenia, unspecified; E11.649 Type 2 diabetes mellitus with hypoglycemia without coma; E66.01 Morbid (severe) obesity due to excess calories; Z68.38 Body mass index [BMI] 38.0-38.9, adult; Z88.5 Allergy status to narcotic agent; Z91.040 Latex allergy status; Z79.899 Other long term (current) drug therapy; Z79.82 Long term (current) use of aspirin; Z79.4 Long term (current) use of insulin
CPT/HCPCS: 71046; 74018; 74019; 74176; 74230; 76770; 80048; 80053; 80164; 80178; 81003; 81015; 82024; 82533; 82570; 82607; 82728; 82962; 83036; 83540; 83550; 83735; 83880; 84100; 84156; 84300; 84443; 84484; 85025; 85027; 87070; 87086; 87502; 87811; 92610; 92611; 93005; 93306; 96360; 96361; 97163; 97167; 97530; 97535; 99285; J2916; P9047